=== PATIENT | female | born 1935 | race Caucasian/White ===

== ENCOUNTER 2020-07-31 10:30 | Outpatient (CLI) | payer OTHER, MEDICARE, SELFPAY | END 2020-07-31 10:31 | disposition home or self-care (01) | LOC: CHSCOVIDVC 10:30 | PROVIDERS: PCP Family Medicine | DX: Z23 Encounter for immunization (principal) | CPT/HCPCS: 0011A; 91301 ==

== ENCOUNTER 2020-08-28 10:29 | Outpatient (CLI) | payer OTHER, MEDICARE, SELFPAY | END 2020-08-28 10:30 | disposition home or self-care (01) | LOC: CHSCOVIDVC 10:29 | PROVIDERS: PCP Family Medicine | DX: Z23 Encounter for immunization (principal) | CPT/HCPCS: 0012A; 91301 ==

== ENCOUNTER 2021-01-20 14:28 | Outpatient (CLI) | payer OTHER, SELFPAY ==
--- NOTE | ~2021-01-20 | DEXA_ITS ---
Bone Density Report Name: Arlene Elliott Age: 85 Sex: Female Ethnicity: White Date of : 1935 Indication: osteopenia; height loss; hysterectomy; postmenopausal Referring Provider: Cecil Dias Study: Bone densitometry was performed. Exam Date: January 20, 2021 Accession number: [id number] Bone Density: Region BMD T-score Z-score Classification AP Spine (L3, L4) 0.861 -2.2 0.8 Osteopenia Femoral Neck (Left) 0.597 -2.3 0.2 Osteopenia Total Hip (Left) 0.742 -1.6 0.6 Osteopenia Total Hip Bilateral Avg 0.733 -1.7 0.6 Osteopenia Femoral Neck (Right) 0.619 -2.1 0.4 Osteopenia Total Hip (Right) 0.723 -1.8 0.5 Osteopenia World Health Organization criteria for BMD impression classify patients as: Normal (T-score at or above -1.0), Osteopenia (T-score between -1.0 and -2.5), or Osteoporosis (T-score at or below -2.5). 10-year Fracture Risk(1): Major Osteoporotic Fracture 17% Hip Fracture 5.7% Reported Risk Factors: [place] (), Neck BMD=0.597, BMI=27.5 (1) FRAX(R) Version 3.08. Fracture probability calculated for an untreated patient. Fracture probability may be lower if the patient has received treatment. Previous Exams: Region Exam Age BMD T-score BMD Change BMD Change Date g/cm2 vs Baseline vs Previous AP Spine(L3, L4) 01/20/2021 85 0.861 -2.2 0.050(6.2%)* 0.019(2.2%) 09/12/2018 83 0.843 -2.3 0.031(3.8%)* 0.031(3.8%)* 08/24/2016 81 0.811 -2.6 Total Hip(Left) 01/20/2021 85 0.742 -1.6 -0.003(-0.5%) -0.020(-2.6%) 09/12/2018 83 0.762 -1.5 0.016(2.2%) 0.016(2.2%) 08/24/2016 81 0.745 -1.6 Total Hip(Right) 01/20/2021 85 0.723 -1.8 -0.035(-4.6%)* 0.007(1.0%) 09/12/2018 83 0.715 -1.9 -0.042(-5.6%)* -0.042(-5.6%)* 08/24/2016 81 0.758 -1.5 *Denotes significance at 95% confidence level, LSC for AP Spine = 0.022 g/cm2, LSC for Total Hip = 0.027 g/cm2 Clinical Information Provided by Patient: Has the following medical conditions: Hysterectomy Patient maximum height was 66 Menopause Age: 43 Drinks caffeinated beverages Onset of menses at age 15 Number of children 2 Impression: The patient has low bone mass, based on the Left Femoral Neck T-score. The patient has an estimated ten-year risk of hip fracture of 5.7% and an estimated ten-year risk of major fracture of 17%, based on the WHO FRAX algorithm. No significant bone loss was observed. Discussion: BONE DENSITY IS
== END 2021-01-20 14:29 | disposition home or self-care (01) ==
LOC: ANHIMG 14:30
PROVIDERS: PCP Family Medicine; Visit Provider Physician Assistant
DX: R29.890 Loss of height (principal); Z90.710 Acquired absence of both cervix and uterus; M85.88 Other specified disorders of bone density and structure, other site; M85.852 Other specified disorders of bone density and structure, left thigh; M85.851 Other specified disorders of bone density and structure, right thigh
CPT/HCPCS: 77080

== ENCOUNTER 2023-04-06 12:51 | Outpatient (CLI) | payer OTHER, SELFPAY | END 2023-04-06 12:52 | disposition home or self-care (01) | LOC: ANHAUDIO 12:52 | PROVIDERS: PCP Family Medicine; Visit Provider Family Medicine | DX: H90.3 Sensorineural hearing loss, bilateral (principal) | CPT/HCPCS: 92557; 92567 ==

== ENCOUNTER 2023-08-09 09:30 | Outpatient (RCR) | payer OTHER, SELFPAY | END 2023-08-09 23:59 | disposition home or self-care (01) | LOC: ANHAUDIO 09:30 | PROVIDERS: PCP Family Medicine; Visit Provider Family Medicine | DX: Z46.1 Encounter for fitting and adjustment of hearing aid (principal) | CPT/HCPCS: 99199; V5160; V5261 ==

== ENCOUNTER 2024-10-07 14:41 | Inpatient (IN) | payer OTHER, SELFPAY ==
--- NOTE | ~2024-10-07 | CT_ITS ---
CLINICAL INDICATION: Abdominal pain, bloating, diarrhea, and difficulty urinating COMPARISON: None. TECHNIQUE: Multiple contiguous axial images of the abdomen and pelvis were performed following the ad ministration of with 100 mL Omnipaque-350 intravenous contrast The dose-length product (DLP) was 492.51 mGy-cm. Automated exposure control and iterative reconstruction technique were employed. FINDINGS/OBSERVATIONS: Visualized lower thorax: Bibasilar atelectasis. The remainder of the bilateral lung bases are clear. The heart is enlarged, with a small pericardial effusion. Small hiatal hernia is present. Liver: Subcentimeter foci of decreased attenuation are identified within the liver, too small to latonia acterize on the current examination. The remainder of the liver demonstrates otherwise homogeneous enhancement and is not enlarged. Gallbladder and biliary system: The gallbladder is only minimally distended, and otherwise unremarkable. Pancreas: The pancreas enhances homogeneously without ductal dilatation. Spleen: The spleen enhances homogeneously and is not enlarged. Kidneys: The bilateral kidneys enhance symmetrically without hydronephrosis or renal calculi. Adrenal glands: Unremarkable. Gastrointestinal tract: Inflammatory changes surrounding the cecum and terminal ileum. Colonic diverticulosis without surrounding inflammatory change. Appendix: The appendix demonstrates mural thickening and is distended measuring 11.2 mm in caliber with surroun ding inflammatory change, findings consistent with acute appendicitis. No gross perforation or drainable fluid collection (at this point). Vasculature: Calcified atherosclerotic disease. Lymph nodes: No pathologically enlarged or morphologically suspicious lymph nodes within the retroperitoneum or at the root of the mesentery. Pelvic structures: The bladder is distended, and otherwise unremarkable. The uterus is either surgically absent or markedly atrophic. Body wall and musculoskeletal: Small fat-containing umbilical hernia. Age-appropriate degenerative disease within the lower thoracic and lumbosacral spine. IMPRESSION: Acute appendicitis. These findings were discussed with María Elena Nur at 6:50 PM on 10/07/2024 Reviewed, dictated and finalized at location A. IMPRESSION: Acute appendicitis. These findings were discussed with María Elena Geadreault at 6:50 PM on 10/07/2024
--- NOTE | ~2024-10-07 | US_ITS ---
BILATERAL LOWER EXTREMITY VENOUS ULTRASOUND Ordering provider: Shanon Cabrera APRN History: . RLE edema . Comparison: None. FINDINGS: RIGHT LOWER EXTREMITY VEINS: --COMMON FEMORAL: Patent and free of thrombus. Normal compressibility, phasic flow and augmentation. --PROXIMAL SUPERFICIAL FEMORAL: Patent and free of thrombus. Normal compressibility, phasic flow and augmentation. --DISTAL SUPERFICIAL FEMORAL: Patent and free of thrombus. Normal compressibility, phasic flow and au gmentation. --POPLITEAL: Patent and free of thrombus. Normal compressibility, phasic flow and augmentation. --POSTERIOR TIBIAL: Patent and free of thrombus. Normal compressibility, phasic flow and augmentation . LEFT LOWER EXTREMITY VEINS: --COMMON FEMORAL: Patent and free of thrombus. Normal compressibility, phasic flow and augmentation. --PROXIMAL SUPERFICIAL FEMORAL: Patent and free of thrombus. Normal compressibility, phasic flow and augmentation. --DISTAL SUPERFICIAL FEMORAL: Patent and free of thrombus. Normal compressibility, phasic flow and au gmentation. --POPLITEAL: Patent and free of thrombus. Normal compressibility, phasic flow and augmentation. --POSTERIOR TIBIAL: Patent and free of thrombus. Normal compressibility, phasic flow and augmentation . IMPRESSION: Negative bilateral lower extremity venous US. No deep vein thrombosis. Reviewed, dictated and finalized at location A.
--- OUTSIDE RECORDS SUMMARY | 2024-10-07 14:45 | XMS_ITS | Clinical Summary ---
Author Organization [facility] Address [address] [address] Care Team Providers Care System Analyst Name Role Phone Tye Grajeda MD Primary Care Provider [phone] Source Comments [facility],non-owned Affiliates and Associated Physician Practices is amultiple site organization consisting of ambulatory clinics and hospital sitesin [place], [place], [place] and [place]. This disclosure is being madepursuant to the Care Everywhere program and may not contain all information available regarding this patient. Last updated 17.[facility] Allergies No known active allergies Medications * Be aware that medications may not be up to date on this document. Alwaysverify current medications with the patient. acetaminophen (Tylenol) 325 MG tablet Take 2 (two) tablets by mouth every 6 hours as needed Maximum allowable Acetaminophen amount = 4 Grams (4000 mg) / 24 hours. 5 Active amLODIPine (Norvasc) 5 MG tablet Take 1 (one) tablet by mouth once daily 5 Active busPIRone (Buspar) 5 MG tablet Take 1 (one) tablet by mouth 2 times daily as needed for anxiety 5 Active Active Problems Problem Noted Date Diagnosed Date Laceration of right hand 08/21/2024 Thyroid lesion 08/21/2024 Overview (08/21/2024): There is a 2.1 cm hypoattenuating nodule in the right thyroid lobe. Recommend nonemergent thyroid ultrasound. Lesion of pancreas 08/21/2024 Overview (08/21/2024): There is a 2.1 cm cystic lesion of the pancreatic body, likely side branch intraductal papillary mucinous neoplasm. Recommend one-year follow-up if clinically indicated. Leukocytosis, unspecified type 08/20/2024 Fall, initial encounter 08/20/2024 Right leg pain 08/20/2024 Laceration of right lower extremity, initial enc ounter 08/20/2024 Finger laceration, initial encounter 08/20/2024 Encounters Date Type Department Care Team Description 10/02/2024 11:45 AM CDT Office Visit [facility] - General Surgery [address] [place] [address], [facility] [place] [address] Laceration of right lower extremity, initial encounter (Primary Dx) 10/02/2024 Travel 09/23/2024 Travel 09/19/2024 Telephone [facility] - General Surgery [address] [place] [address], [place] [address] Meghna Avalos, architect/Incision Check 09/18/2024 11:45 AM CDT Office Visit [facility] - General Surgery [address] [place] [address], [place] [address] Open wound of right lower extremity, subsequent encounter (Primary Dx) 09/18/2024 Travel 09/11/2024 11:45 AM CDT Office Visit [facility] - General Surgery [address] [place] [address], [place] [address] Fall, initial encounter (Primary Dx); Laceration of right lower extremity, initial encounter; Right leg pain 09/11/2024 Telephone [facility] - General Surgery [address] [place] [address], [place] [address] Meghna Avalos, MIYA Coordination Of Care 09/11/2024 Travel 09/04/2024 12:00 PM CDT Clinical Support [facility] - General Surgery [address] [place] [address], [place] [address] Wound of right lower extremity, sequela 09/04/2024 Travel 08/28/2024 12:00 PM CDT Clinical Support [facility] - General Surgery [address] [facility], [facility] [place] [address] Laceration of right lower extremity, initial encounter 08/28/2024 Telephone [facility] - General Surgery [address] [facility], [place] [address] Meghna Avalos RN Coordination Of Care 08/28/2024 Travel 08/22/2024 Travel 08/20/2024 3:03 PM CDT - 08/21/2024 4:41 PM CDT Emergency [facility] [address] [place] [address] Washington Dobson MD Fite, Emily A, MD Naughton, Daniel J, MD Laceration of right lower extremity, initial encounter (Primary Dx); Fall, initial encounter; Finger laceration, initial encounter; Right leg pain; Leukocytosis, unspecified type; Lesion of pancreas (HCC); Thyroid lesion Discharge Disposition: Home or Self Care 08/20/2024 Travel from Last 3 Months Immunizations Immunization Administration Dates Next Due TDAP (7yrs+) 08/20/2024 Social History Tobacco Use Types Packs/Day Years Used Date Smoking Tobacco: Never Passive Smoke Exposure: Never Smokeless Tobacco: Never Tobacco Cessation:Counseling Given: No Alcohol Use Standard Drinks/Week Comments Never 0 (1 standard drink = 0.6 oz pur e alcohol) Comments Unknown Sex and Gender Information Value Date Recorded Sex Assigned at Not on file Legal Sex Female 3:02 PM CDT Gender Identity Not on file Sexual Orientation Not on file Last Filed Vital Signs Vital Sign Reading Time Taken Comments Blood Pressure 130/77 10/02/2024 11:35 AM CDT Pulse 60 10/02/2024 11:35 AM CDT Temperature 37 C (98.6 F) 10/02/2024 11:35 AM CDT Respiratory Rate 18 10/02/2024 11:35 AM CDT Oxygen Saturation 98% 10/02/2024 11:35 AM CDT Inhaled Oxygen Concentration - - Weight 68 kg (150 lb) 10/02/2024 11:35 AM CDT Height 172.7 cm (5' 8) 10/02/2024 11:35 AM CDT Body Mass Index 22.81 10/02/2024 11:35 AM CDT Plan of Treatment Upcoming Encounters Date Type Department Care Team (Late st Contact Info) Description 10/30/2024 11:45 AM CDT Office Visit [facility] - General Surgery [address] [facility], [place] [address] Health Maintenance Due Date Last Done Comments BONE DENSITY TESTING 1935 MEDICARE AWV 12 MONTHS 1935 PNEUMOCOCCAL VACCINE 50+ (1 of 1 - PCV) 1987 ZOSTER VACCINE (1 of 2) 1987 Respiratory Syncytial Virus (RSV) Vaccine Pt: or over 60 yrs (1 - 1-dose 75+ series) 02/04/2012 COVID-19 VACCINE ( - 2023-2 5 season) 2023 DEPRESSION SCREENING 04/02/2024 INFLUENZA VACCINE (#1) 2024 DTAP/TDAP/TD VACCINES (2 - T d or Tdap) 08/20/2034 08/20/2024 HEPATITIS B VACCINE Aged Out No longe r eligible based on patient's age to complete this topic HIB VACCINE Aged Out No longer eligi ble based on patient's age to complete this topic HPV VACCINE Aged Out No longer eligi ble based on patient's age to complete this topic MENINGOCOCCAL (Group B) VACC INE SHARED DECISION-MAKING Aged Out No longer eligibl e based on patient's age to complete this topic MENINGOCOCCAL GROUPS A/C/Y/W VACCINE Aged Out No longer eligible b ased on patient's age to complete this topic Procedures Procedure Name Priority Date/Time Associated Diagnosis Comments PHOSPHORUS BLOOD STAT 08/21/2024 7:33 AM CDT Laceration of right lower extremity, initial encounter MAGNESIUM BLOOD STAT 08/21/2024 7:33 AM CDT Laceration of right lower extremity, initial encounter CBC W/O DIFFERENTIAL STAT 08/21/2024 7:33 AM CDT Laceration of right lower extremity, initial encounter BASIC METABOLIC PANEL (CALCIUM TOTAL) STAT 08/21/2024 7:33 AM CDT Laceration of right lower extremity, initial encounter CT CHEST ABDOMEN PELVIS W CONT STAT 08/20/2024 8:57 PM CDT Fall, initial encounter Finger laceration, initial encounter Right leg pain Leukocytosis, unspecified type CT THORACIC SPINE WO CONTRAST STAT 08/20/2024 8:57 PM CDT Fall, initial encounter Finger laceration, initial encounter Right leg pain Leukocytosis, unspecified type CT LUMBAR SPINE WO CONTRAST STAT 08/20/2024 8:57 PM CDT Fall, initial encounter Finger laceration, initial encounter Right leg pain Leukocytosis, unspecified type ED LACERATION REPAIR Routine 08/20/2024 7:27 PM CDT BLOOD TYPE VERIFICATION STAT 08/20/2024 6:24 PM CDT URINALYSIS REFLEX MICROSCOPIC REFLEX CULTURE STAT 08/20/2024 5:38 PM CDT URINE DRUG SCREEN IMMUNOASSAY STAT 08/20/2024 5:38 PM CDT TYPE + SCREEN PANEL STAT 08/20/2024 5 :13 PM CDT PT-INR [facility] STAT 08/20/2024 5:13 PM CDT ALCOHOL ETHYL BLOOD STAT 08/20/2024 5 :13 PM CDT COMPREHENSIVE METABOLIC PANEL STAT 08/20/2024 5:13 PM CDT CBC W AUTO DIFFERENTIAL STAT 08/20/2024 5:[address] CERVICAL SPINE WO CONTRAST STAT 08/20/2024 4:56 PM CDT Fall, initial encounter Finger laceration, initial encounter Right leg pain CT HEAD WO CONTRAST STAT 08/20/2024 4 :56 PM CDT Fall, initial encounter Finger laceration, initial encounter Right leg pain XR HAND RIGHT 3VW OR MORE STAT 08/20/2024 4:21 PM CDT Fall, initial encounter XR ANKLE RIGHT 3VW OR MORE STAT 08/20/2024 4:21 PM CDT Fall, initial encounter XR TIBIA FIBULA RIGHT 2VW STAT 08/20/2024 4:20 PM CDT Fall, initial encounter XR KNEE RIGHT 3VW STAT 08/20/2024 4:2 0 PM CDT Fall, initial encounter from Last 3 Months Results * (ABNORMAL) CBC W/O DIFFERENTIAL (08/21/2024 7:33 AM CDT) [facility] WBC 10.7 4.0 - 10.7 x10E9/L 08/21/2024 7:53 AM [facility] RBC Count 3.98 3.90 - 5.20 x10E12/L 08/21/2024 7:53 AM [facility] Hemoglobin 13.2 11.9 - 15.8 g/dL 08/21/2024 7:53 AM [facility] Hematocrit 38.9 34.8 - 46.1 % 08/21/2024 7:53 AM [facility] MCV 97.7 80.0 - 98.0 fL 08/21/2024 7:53 AM [facility] MCH 33.2 26.7 - 33.6 pg 08/21/2024 7:53 AM [facility] MCHC 33.9 31.7 - 36.3 g/dL 08/21/2024 7:53 AM [facility] RDW-CV 14.5 11.3 - 14.8 % 08/21/2024 7:53 AM [facility] Platelet Count 147(L) 150 - 420 x10E9/L 08/21/2024 7:53 AM [facility] MPV 10.9 7.8 - 11.4 fL 08/21/2024 7:53 AM [facility] Blood BLOOD SPECIMEN / Unknown Venipuncture / Unknown 08/21/2024 7:33 AM CDT 08/21/2024 7:44 AM T us Jennifer Bautista MD LAB - HEMATOLOGY ORDERABLES Dominga madeline Result [facility] [address] [place] [address], [facility] [phone] * (ABNORMAL) BASIC METABOLIC PANEL (CALCIUM TOTAL) (08/21/2024 7:33 AM CDT) BUN 18 7 - 26 mg/dL 08/21/2024 10:49 AM [facility] Creatinine 0.62 0.56 - 0.96 mg/dL 08/21/2024 10:49 AM [facility] Sodium 140 136 - 145 mmol/L 08/21/2024 10:49 AM [facility] Potassium 3.8 3.5 - 4.5 mmol/L 08/21/2024 10:49 AM [facility] Chloride 111(H) 98 - 107 mmol/L 08/21/2024 10:49 AM [facility] CO2 23 22 - 29 mmol/L 08/21/2024 10:49 AM [facility] Glucose 120(H) 70 - 99 mg/dL 08/21/2024 10:49 AM [facility] Calcium 8.5 8.4 - 10.2 mg/dL 08/21/2024 10:49 AM [facility] Anion Gap 6 6 - 16 08/21/2024 10:49 AM [facility] BUN/Creatinine Ratio 29(H) 7 - 23 08/21/2024 10:49 AM [facility] Osmolality Calculated 293 275 - 295 mOsm/kg 08/21/2024 10:49 AM [facility] eGFR by CKD-EPI 86(L) >=90 mL/min/1.7 3 m2 08/21/2024 10:49 AM [facility] Blood BLOOD SPECIMEN / Unknown Venipuncture / Unknown 08/21/2024 7:33 AM CDT 08/21/2024 7:44 AM CDT Jennifer Bautista MD LAB - CHEMISTRY ORDERABLES Final Result Performing Organization Address [facility]/ZIP Co de Phone Number [address] [address], [facility] [phone] * PHOSPHORUS BLOOD (08/21/2024 7:33 AM CDT) Phosphorus 2.9 2.9 - 5.1 mg/dL 08/21/2024 10:49 AM CDT [facility] Blood BLOOD SPECIMEN / Unknown Venipuncture / Unknown 08/21/2024 7:33 AM CDT 08/21/2024 7:44 AM CDT Jennifer Bautista MD LAB - CHEMISTRY ORDERABLES Final Result Performing Organization Address [facility] Co de Phone Number [address] [address], [facility] [phone] * MAGNESIUM BLOOD (08/21/2024 7:33 AM CDT) Magnesium 2.1 1.6 - 2.6 mg/dL 08/21/2024 10:49 AM CDT [facility] Blood BLOOD SPECIMEN / Unknown Venipuncture / Unknown 08/21/2024 7:33 AM CDT 08/21/2024 7:44 AM CDT Jennifer Bautista MD LAB - CHEMISTRY ORDERABLES Final Result Performing Organization Address [facility] Co de Phone Number [address] [address], [facility] [phone] * CT Chest Abdomen Pelvis W Cont (08/20/2024 8:57 PM CDT) Anatomical Region Laterality Modality Chest, Abdomen, Pelvis Computed Tomography 08/20/2024 9:48 PM CDT Impressions 08/21/2024 2:31 AM CDT Impression: 1.No acute visceral, vascular, or osseus injury identified in the chest, abdomen, or pelvis. 2.There is a 2.1 cm hypoattenuating nodule in the right thyroid lobe. Recommend nonemergent thyroid ultrasound. 3.There is a 2.1 cm cystic lesion of the pancreatic body, likely side branch intraductal papillary mucinous neoplasm. Recommend one-year follow-up if clinically indicated. > Dictated by Kostas Owusu MD, (radiology nurse). I, Sudarshan Ramesh MD have personally reviewed and interpreted this examination/study. > Interpreting Provider: Sudarshan Ramesh MD on 08/21/2024 2:31 AM Narrative 08/21/2024 2:31 AM CDT PROCEDURE: CT CHEST ABDOMEN PELVIS W CONT, DATE/TIME OF EXAM: 08/20/2024 8:58 PM, LOCATION [facility] INDICATION: W19.XXXA: Fall, initial encounter S61.219A: Finger laceration, initial encounter M79.604: Right leg pain D72.829: Leukocytosis, unspecified type ADDITIONAL CLINICAL INFORMATION: Ordering Provider Reason For Exam: fx? Acute intrathoracic or intra-abdominal injury? COMPARISON: None. TECHNIQUE: CT of the chest, abdomen, and pelvis was performed after the uneventful administration of 100 mL of Isovue 370 intravenous contrast according to standard protocol. Findings: Chest: Lower Neck and Axillae: There is a 2.1 cm hypoattenuating nodule in the right thyroid gland Lungs: Mild bilateral dependent atelectasis is present. No suspicious pulmonary nodules are identified. No pleural fluid or pneumothorax is present. Heart and Pericardium: The cardiac chambers are normal in size. No pericardial fluid or thickening is present. Mediastinum and Samia: No mediastinal hemorrhage is present. No enlarged lymph nodes are present. Thoracic Vasculature: No vascular abnormality is present. Abdomen/pelvis: Liver: Multiple cysts are noted. Some cysts are calcified, could represent granulomas within the liver. Gallbladder and Bile Ducts: Normal. Spleen: Normal. Pancreas: Pancreas is atrophic. There is a 2.1 cm cystic lesion of the pancreatic body (Series 4, Image 39), likely a side branch intraductal papillary mucinous neoplasm . Adrenals: Indeterminate 1 cm nodule left adrenal gland. Right adrenal gland is normal. Kidneys: Multiple subcentimeter hypoattenuating lesions in both kidneys are too small to characterize, but likely represent cysts. Gastrointestinal: The stomach and visualized loops of small bowel are unremarkable. Colonic diverticulosis without evidence of diverticulitis is seen. Normal appendix. Mesentery/Peritoneum/Retroperitoneum: No free intraperitoneal air. No free fluid in the abdomen or pelvis. Bladder: Normal. Reproductive Organs: The uterus is absent. Abdominal Vasculature: No vascular abnormality is present. Bones: Bone windows demonstrate no suspicious lytic or blastic lesions. The visible osseous structures are intact. Degenerative changes are seen in the spine. There is grade 1 retrolisthesis of L1 on L2 and grade 2 anterolisthesis of L5 on S1. Soft tissues: Normal. Procedure Note Sudarshan Ramesh MD - 08/21/2024 PROCEDURE: CT CHEST ABDOMEN PELVIS W CONT, DATE/TIME OF EXAM:08/20/2024 8:58 PM, LOCATION [facility] INDICATION: W19.XXXA: Fall, initial encounter S61.219A: Finger laceration, initial encounter M79.604: Right leg pain D72.829: Leukocytosis, unspecified type ADDITIONAL CLINICAL INFORMATION: Ordering Provider Reason For Exam: fx? Acute intrathoracic or intra-abdominal injury? COMPARISON: None. TECHNIQUE: CT of the chest, abdomen, and pelvis was performed after the uneventful administration of 100 mL of Isovue 370 intravenous contrast according to standard protocol. Findings: Chest: Lower Neck and Axillae: There is a 2.1 cm hypoattenuating nodule in the right thyroid gland Lungs: Mild bilateral dependent atelectasis is present. No suspicious pulmonary nodules are identified. No pleural fluid or pneumothorax is present. Heart and Pericardium: The cardiac chambers are normal in size. No pericardial fluid orthickening is present. Mediastinum and Samia: No mediastinal hemorrhage is present. No enlarged lymph nodes arepresent. Thoracic Vasculature: No vascular abnormality is present. Abdomen/pelvis: Liver: Multiple cysts are noted. Some cysts are calcified, could represent granulomas within the liver. Gallbladder and Bile Ducts: Normal. Spleen: Normal. Pancreas: Pancreas is atrophic. There is a 2.1 cm cystic lesion of the pancreatic body (Series 4, Image 39), likely a side branch intraductal papillary mucinous neoplasm . Adrenals: Indeterminate 1 cm nodule left adrenal gland. Right adrenal gland is normal. Kidneys: Multiple subcentimeter hypoattenuating lesions in both kidneys are too small to characterize, but likely represent cysts. Gastrointestinal: The stomach and visualized loops of small bowel are unremarkable.Colonic diverticulosis without evidence of diverticulitis is seen. Normalappendix. Mesentery/Peritoneum/Retroperitoneum: No free intraperitoneal air. No free fluid in the abdomen or pelvis. Bladder: Normal. Reproductive Organs: The uterus is absent. Abdominal Vasculature: No vascular abnormality is present. Bones: Bone windows demonstrate no suspicious lytic or blastic lesions. The visible osseous structures are intact. Degenerative changes are seen inthe spine. There is grade 1 retrolisthesis of L1 on L2 and grade 2 anterolisthesis of L5 on S1. Soft tissues: Normal. Impression: 1.No acute visceral, vascular, or osseus injury identified in the chest, abdomen, or pelvis. 2.There is a 2.1 cm hypoattenuating nodule in the right thyroid lobe. Recommend nonemergent thyroid ultrasound. 3.There is a 2.1 cm cystic lesion of the pancreatic body, likely side branch intraductal papillary mucinous neoplasm. Recommend one-year follow-up if clinically indicated. > Dictated by Kostas Owusu MD, (radiology nurse). Sudarshan Stone MD have personally reviewed and interpreted this examination/study. > Interpreting Provider: Sudarshan Ramesh MD on 08/21/2024 2:31 AM Washington Dobson MD CT ORDERABLES Final Result * CT Lumbar Spine Wo Contrast (08/20/2024 8:57 PM CDT) Anatomical Region Laterality Modality Spine Computed Tomogra phy 08/20/2024 9:22 PM CDT Impressions 08/20/2024 11:51 PM CDT IMPRESSION: 1.No evidence of acute fracture in the thoracic or lumbar spine. 2.A 2.4 cm right thyroid gland nodule. Nonemergent thyroid ultrasound recommended. Report dictated by Jose Angel Palacio MD, (Lunchroom Aide). Rose Stone MD have personally reviewed and interpreted this examination/study. > Interpreting Provider: Rose Farnsworth MD on 08/20/2024 11:51 PM Narrative 08/20/2024 11:51 PM CDT PROCEDURE: CT THORACIC SPINE WO CONTRAST, CT LUMBAR SPINE WO CONTRAST, DATE/TIME OF EXAM: 08/20/2024 8:58 PM, LOCATION [facility] INDICATION: W19.XXXA: Fall, initial encounter S61.219A: Finger laceration, initial encounter M79.604: Right leg pain D72.829: Leukocytosis, unspecified type ADDITIONAL CLINICAL INFORMATION: Ordering Provider Reason For Exam: fx? TECHNIQUE: Reformatted axial, sagittal, and coronal images of the thoracic and lumbar spine were obtained by the technologist from a concurrently performed body CT and sent to the workstation for review. CT dose reduction technique was used, including Automated Exposure Control. COMPARISON: No prior study is available for comparison at the time of this dictation. FINDINGS: Thoracic spine: Increased thoracic kyphosis and multilevel mild anterior wedging of the vertebral bodies with less than 20% height loss. Slight dextroscoliosis of the thoracic spine. Otherwise, no acute fracture seen. The bones are diffusely osteopenic. There is advanced degenerative disc disease with Schmorl's nodes. No high-grade central canal stenosis is seen. 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 There are varying degrees of neural foraminal stenosis at multiple levels. There is subsegmental atelectasis in the dependent portions of the lung bases. A 2.4 cm right thyroid gland nodule. Nonemergent thyroid ultrasound recommended. Lumbar spine: Grade 1 retrolisthesis of L1 on L2. 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 The bones are diffusely demineralized. Vertebral bodies are normal in height without evidence of acute fracture. There is advanced degenerative disc disease with Schmorl's nodes. No high-grade central canal stenosis is seen. 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 There are varying degrees of neural foraminal stenosis at multiple levels. Colonic diverticulosis is partially imaged. Atherosclerotic calcification of the aorta and branch vessels. Bilateral kidney cysts. Multiple subcentimeter hypodense findings within the liver, too small to characterize likely cysts. Mild prominence of the left adrenal gland. Procedure Note Rose Farnsworth MD - 08/20/2024 PROCEDURE: CT THORACIC SPINE WO CONTRAST, CT LUMBAR SPINE WO CONTRAST, DATE/TIME OF EXAM: 08/20/2024 8:58 PM, LOCATION [facility] INDICATION: W19.XXXA: Fall, initial encounter S61.219A: Finger laceration, initial encounter M79.604: Right leg pain D72.829: Leukocytosis, unspecified type ADDITIONAL CLINICAL INFORMATION: Ordering Provider Reason For Exam: fx? TECHNIQUE: Reformatted axial, sagittal, and coronal images of thethoracic and lumbar spine were obtained by the technologist from a concurrently performed body CT and sent to the workstation for review. CT dosereduction technique was used, including Automated Exposure Control. COMPARISON: No prior study is available for comparison at the time ofthis dictation. FINDINGS: Thoracic spine: Increased thoracic kyphosis and multilevel mild anterior wedging of the vertebral bodies with less than 20% height loss. Slight dextroscoliosisof the thoracic spine. Otherwise, no acute fracture seen. The bones are diffusely osteopenic. There is advanced degenerative disc disease with Schmorl's nodes. No high-grade central canal stenosis is seen. 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 There are varying degreesof neural foraminal stenosis at multiple levels. There is subsegmental atelectasis in the dependent portions of the lung bases. A 2.4 cm right thyroid gland nodule. Nonemergent thyroid ultrasound recommended. Lumbar spine: Grade 1 retrolisthesis of L1 on L2. 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 The bones are diffusely demineralized. Vertebral bodies are normal in height without evidence of acute fracture. There is advanced degenerative disc disease with Schmorl's nodes. No high-grade centralcanal stenosis is seen. 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 There are varying degrees of neural foraminal stenosis atmultiple levels. Colonic diverticulosis is partially imaged. Atherosclerotic calcification of the aorta and branch vessels. Bilateral kidney cysts. Multiple subcentimeter hypodense findings within the liver, too small to characterize likely cysts. Mild prominence of the left adrenal gland. IMPRESSION: 1.No evidence of acute fracture in the thoracic or lumbar spine. 2.A 2.4 cm right thyroid gland nodule. Nonemergent thyroid ultrasound recommended. Report dictated by Jose Angel Palacio MD, (Lunchroom Aide). Rose Stone MD have personally reviewed and interpretedthis examination/study. > Interpreting Provider: Rose Farnsworth MD on 08/20/2024 11:51 PM Washington Dobson MD CT ORDERABLES Final Result * CT Thoracic Spine Wo Contrast (08/20/2024 8:57 PM CDT) Anatomical Region Laterality Modality Spine Computed Tomogra phy 08/20/2024 9:22 PM CDT Impressions 08/20/2024 11:51 PM CDT IMPRESSION: 1.No evidence of acute fracture in the thoracic or lumbar spine. 2.A 2.4 cm right thyroid gland nodule. Nonemergent thyroid ultrasound recommended. Report dictated by Jose Angel Palacio MD, (Lunchroom Aide). Rose Stone MD have personally reviewed and interpreted this examination/study. > Interpreting Provider: Rose Farnsworth MD on 08/20/2024 11:51 PM Narrative 08/20/2024 11:51 PM CDT PROCEDURE: CT THORACIC SPINE WO CONTRAST, CT LUMBAR SPINE WO CONTRAST, DATE/TIME OF EXAM: 08/20/2024 8:58 PM, LOCATION [facility] INDICATION: W19.XXXA: Fall, initial encounter S61.219A: Finger laceration, initial encounter M79.604: Right leg pain D72.829: Leukocytosis, unspecified type ADDITIONAL CLINICAL INFORMATION: Ordering Provider Reason For Exam: fx? TECHNIQUE: Reformatted axial, sagittal, and coronal images of the thoracic and lumbar spine were obtained by the technologist from a concurrently performed body CT and sent to the workstation for review. CT dose reduction technique was used, including Automated Exposure Control. COMPARISON: No prior study is available for comparison at the time of this dictation. FINDINGS: Thoracic spine: Increased thoracic kyphosis and multilevel mild anterior wedging of the vertebral bodies with less than 20% height loss. Slight dextroscoliosis of the thoracic spine. Otherwise, no acute fracture seen. The bones are diffusely osteopenic. There is advanced degenerative disc disease with Schmorl's nodes. No high-grade central canal stenosis is seen. 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 There are varying degrees of neural foraminal stenosis at multiple levels. There is subsegmental atelectasis in the dependent portions of the lung bases. A 2.4 cm right thyroid gland nodule. Nonemergent thyroid ultrasound recommended. Lumbar spine: Grade 1 retrolisthesis of L1 on L2. 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 The bones are diffusely demineralized. Vertebral bodies are normal in height without evidence of acute fracture. There is advanced degenerative disc disease with Schmorl's nodes. No high-grade central canal stenosis is seen. 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 There are varying degrees of neural foraminal stenosis at multiple levels. Colonic diverticulosis is partially imaged. Atherosclerotic calcification of the aorta and branch vessels. Bilateral kidney cysts. Multiple subcentimeter hypodense findings within the liver, too small to characterize likely cysts. Mild prominence of the left adrenal gland. Procedure Note Rose Farnsworth MD - 08/20/2024 PROCEDURE: CT THORACIC SPINE WO CONTRAST, CT LUMBAR SPINE WO CONTRAST, DATE/TIME OF EXAM: 08/20/2024 8:58 PM, LOCATION [facility] INDICATION: W19.XXXA: Fall, initial encounter S61.219A: Finger laceration, initial encounter M79.604: Right leg pain D72.829: Leukocytosis, unspecified type ADDITIONAL CLINICAL INFORMATION: Ordering Provider Reason For Exam: fx? TECHNIQUE: Reformatted axial, sagittal, and coronal images of thethoracic and lumbar spine were obtained by the technologist from a concurrently performed body CT and sent to the workstation for review. CT dosereduction technique was used, including Automated Exposure Control. COMPARISON: No prior study is available for comparison at the time ofthis dictation. FINDINGS: Thoracic spine: Increased thoracic kyphosis and multilevel mild anterior wedging of the vertebral bodies with less than 20% height loss. Slight dextroscoliosisof the thoracic spine. Otherwise, no acute fracture seen. The bones are diffusely osteopenic. There is advanced degenerative disc disease with Schmorl's nodes. No high-grade central canal stenosis is seen. 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 There are varying degreesof neural foraminal stenosis at multiple levels. There is subsegmental atelectasis in the dependent portions of the lung bases. A 2.4 cm right thyroid gland nodule. Nonemergent thyroid ultrasound recommended. Lumbar spine: Grade 1 retrolisthesis of L1 on L2. 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 The bones are diffusely demineralized. Vertebral bodies are normal in height without evidence of acute fracture. There is advanced degenerative disc disease with Schmorl's nodes. No high-grade centralcanal stenosis is seen. 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 There are varying degrees of neural foraminal stenosis atmultiple levels. Colonic diverticulosis is partially imaged. Atherosclerotic calcification of the aorta and branch vessels. Bilateral kidney cysts. Multiple subcentimeter hypodense findings within the liver, too small to characterize likely cysts. Mild prominence of the left adrenal gland. IMPRESSION: 1.No evidence of acute fracture in the thoracic or lumbar spine. 2.A 2.4 cm right thyroid gland nodule. Nonemergent thyroid ultrasound recommended. Report dictated by Jose Angel Palacio MD, (Lunchroom Aide). I, Rose Farnsworth MD have personally reviewed and interpretedthis examination/study. > Interpreting Provider: Rose Farnsworth MD on 08/20/2024 11:51 PM us Washington Dobson MD CT ORDERABLES Final Result * Laceration Repair (08/20/2024 7:27 PM CDT) Narrative Washington Dobson MD - 08/20/2024 7:27 PM CDT Washington Dobson MD 08/20/2024 8:51 PM Laceration Repair Date/Time: 08/20/2024 7:27 PM Performed by: Amy Vasquez MD Authorized by: Washington Dobson MD Consent: Consent obtained: Verbal Consent given by: Patient Risks, benefits, and alternatives were discussed: yes Risks discussed: Infection, need for additional repair, nerve damage, poor wound healing, pain, poor cosmetic result, retained foreign body, tendon damage and vascular damage Alternatives discussed: No treatment and delayed treatment [place] protocol: Procedure explained and questions answered to patient or proxy's satisfaction: yes Relevant documents present and verified: yes Test results available: yes Imaging studies available: yes Required blood products, implants, devices, and special equipment available: yes Site/side marked: yes Immediately prior to procedure, a time out was called: yes Patient identity confirmed: Verbally with patient Anesthesia: Anesthesia method: Local infiltration Local anesthetic: Lidocaine 1% w/o epi Laceration details: Location: Finger Finger location: R long finger Length (cm): 1.5 Depth (mm): 3 Pre-procedure details: Preparation: Patient was prepped and draped in usual sterile fashion Treatment: Area cleansed with: Saline Amount of cleaning: Standard Irrigation solution: Sterile saline Irrigation volume: 250 Irrigation method: Pressure wash Skin repair: Repair method: Sutures Suture size: 5-0 Wound skin closure material used: Monocryl. Suture technique: Simple interrupted Number of sutures: 3 Approximation: Approximation: Close Repair type: Repair type: Simple Post-procedure details: Dressing: Antibiotic ointment Procedure completion: Tolerated well, no immediate complications Comments: Done with the assistance of medical student year 4 Amari Steven. Washington Dobson MD PROCEDURE/MINOR SURGIC AL ORDERABLES Final Result * BLOOD TYPE VERIFICATION (08/20/2024 6:24 PM CDT) ABO Rh O POS 08/20/2024 7:1 0 PM CDT [facility] Blood Bank BLOOD SPECIMEN / Unknown Venipuncture / Unknown 08/20/2024 6:24 PM CDT 08/20/2024 6:30 PM CDT Washington Dobson MD LAB - BLOOD BANK ORDER STEPHANIE Final Result [facility] [address] [place] [address], [facility] [phone] * (ABNORMAL) URINALYSIS REFLEX MICROSCOPIC REFLEX CULTURE (08/20/2024 5:38 PM CDT) Color UA Colorless(A) Yellow, Straw 08/20/2024 5:57 PM CDT [facility] Clarity UA Clear Clear 08/20/2024 5:57 PM CDT [facility] Glucose UA 2+(A) Normal 08/20/2024 5:57 PM CDT [facility] Bilirubin UA Negative Negative 08/20/2024 5:57 PM CDT [facility] Ketone UA Negative Negative 08/20/2024 5:57 PM CDT [facility] Specific [place] UA 1.008 1.005 - 1.030 08/20/2024 5:57 PM CDT [facility] Blood UA Negative Negative 08/20/2024 5:57 PM CDT [facility] pH UA 6.5 5.0 - 8.0 pH 08/20/2024 5:57 PM CDT [facility] Protein UA Negative Negative 08/20/2024 5:57 PM CDT [facility] Urobilinogen UA Normal Normal mg/dL 08/20/2024 5:57 PM CDT [facility] Nitrite UA Negative Negative 08/20/2024 5:57 PM T [facility] Leukocyte Esterase UA Negative Negative 08/20/2024 5:57 PM T [facility] Reflex Status Culture not indicated 08/20/2024 5:57 PM [facility] Urine URINE SPECIMEN OBTAINED BY CLEAN CATCH PROCEDURE / Unknown Collection / Unknown 08/20/2024 5:38 PM CDT 08/20/2024 5:47 PM CDT Washington Dobson MD LAB - URINALYSIS ORDER STEPHANIE Final Result Performing Organization Address [facility] Co de Phone Number [address] [id number] [phone] * URINE DRUG SCREEN IMMUNOASSAY (08/20/2024 5:38 PM CDT) Pathologist [facility] Amphetamines Screen Urine Negative Negative: < 1000 ng/mL 08/20/2024 6:17 PM CDT [facility] Barbiturates Screen Urine Negative Negative: < 200 ng/mL 08/20/2024 6:17 PM [facility] Benzodiazepine Screen Urine Negative Negative: < 200 ng/mL 08/20/2024 6:17 PM T [facility] Opiates Urine Negative Negative: < 300 ng/mL 08/20/2024 6:17 PM CDT [facility] Cocaine Metabolites Urine Negative Negative: < 300 ng/mL 08/20/2024 6:17 PM CDT [facility] Phencyclidine Screen Urine Negative Negative: < 25 ng/ml 08/20/2024 6:17 PM CDT [facility] Cannabinoids Screen Urine Negative Negative: <50 ng/mL 08/20/2024 6:17 PM CDT [facility] Methadone Screen Urine Negative Negative: < 300 ng/mL 08/20/2024 6:17 PM CDT [facility] Fentanyl Screen Urine Negative Negative: <1.5 ng/mL 08/20/2024 6:17 PM T [facility] Urine URINE / Unknown Collection / Unknown 08/20/2024 5:38 PM CDT 08/20/2024 5:47 PM CDT [facility] - 08/20/2024 6:17 PM CDT The Urine Toxicology Screening Panel does not screen for Propoxyphene, Meprobamate, Carisoprodol, Trazodone, obtk-xtr-ltbvhtl medications and/or volatiles (Acetone, Isopropanol, Methanol or Ethylene Glycol). Ethanol, Salicylate, Acetaminophen, Tricyclic Antidepressants and several therapeutic drugs may be individually assayed in serum or plasma specimen. Toxicology testing by the [facility] is an aid to medical diagnosis and treatment of patients. No documented chain of custody was maintained. Results are intended to be used for clinical purposes only. Washington Dobson MD LAB - URINE CHEMISTRY ORDERABLES Final Result [facility] [address] [place] [address], [facility] [phone] * PT-INR [facility] (08/20/2024 5:13 PM CDT) PT 13.6 12.1 - 14.8 Seconds 08/20/2024 5:50 PM CDT [facility] INR 1.1 See Comment 08/20/2024 5:50 PM CDT [facility] Comment:The suggested therap eutic range for standard coumadin (warfarin) therapy is an INR of 2.0-3.0. For high-risk patients (Mechanical Mitral Valve Prosthesis, etc.), the suggested prophylactic therapeutic range is an INR of 2.5-3.5. Blood BLOOD SPECIMEN / Unknown Venipuncture / Unknown 08/20/2024 5:13 PM CDT 08/20/2024 5:20 PM CDT Washington Dobson MD LAB - COAGULATION ORDE RABLES Final Result [facility] [address] [place] [address], [place] [phone] * TYPE + SCREEN PANEL (08/20/2024 5:13 PM CDT) [facility] Antibody Screen NEG 6:06 PM CDT [facility] ABO Rh O POS 08/20/2024 6:06 PM CDT [facility] Blood Bank BLOOD SPECIMEN / Unknown Venipuncture / Unknown 08/20/2024 5:13 PM CDT 08/20/2024 5:23 PM CDT Washington Dobson MD LAB - BLOOD BANK ORDER STEPHANIE Final Result Performing Organization Address City/[facility]/ZIP Co de Phone Number [facility] [address] [place] [address], [facility] [phone] * (ABNORMAL) CBC W AUTO DIFFERENTIAL (08/20/2024 5:13 PM CDT) Pathologist [facility] WBC 11.5(H) 4.0 - 10.7 x10E9/L 08/20/2024 5:33 PM CDT [facility] RBC Count 4.02 3.90 - 5.20 x10E12/L 08/20/2024 5:33 PM CDT [facility] Hemoglobin 13.1 11.9 - 15.8 g/dL 08/20/2024 5:33 PM CDT [facility] Hematocrit 39.7 34.8 - 46.1 % 08/20/2024 5:33 PM [facility] MCV 98.8(H) 80.0 - 98.0 fL 08/20/2024 5:33 PM [facility] MCH 32.6 26.7 - 33.6 pg 08/20/2024 5:33 PM [facility] MCHC 33.0 31.7 - 36.3 g/dL 08/20/2024 5:33 PM [facility] RDW-CV 14.0 11.3 - 14.8 % 08/20/2024 5:33 PM [facility] Platelet Count 145(L) 150 - 420 x10E9/L 08/20/2024 5:33 PM [facility] MPV 11.2 7.8 - 11.4 fL 08/20/2024 5:33 PM [facility] Neutrophil % 84.2(H) 41.0 - 74.0 % 08/20/2024 5:33 PM [facility] Lymphocyte % 8.2(L) 17.0 - 47.0 % 08/20/2024 5:33 PM [facility] Monocyte % 6.6 3.0 - 11.0 % 08/20/2024 5:33 PM [facility] Eosinophil % 0.2 0.0 - 7.0 % 08/20/2024 5:33 PM [facility] Basophil % 0.4 0.0 - 1.6 % 08/20/2024 5:33 PM [facility] Immature Granulocytes % 0.4 0.0 - 1.0 % 08/20/2024 5:33 PM [facility] Neutrophil Absolute 9.71(H) 1.60 - 7.50 x10E9/L 08/20/2024 5:33 PM [facility] Lymphocyte Absolute 0.94(L) 1.00 - 4.40 x10E9/L 08/20/2024 5:33 PM [facility] Monocyte Absolute 0.76 0.15 - 1.00 x10E9/L 08/20/2024 5:33 PM [facility] Eosinophil Absolute 0.02 0.00 - 0.60 x10E9/L 08/20/2024 5:33 PM [facility] Basophil Absolute 0.05 0.00 - 0.13 x10E9/L 08/20/2024 5:33 PM [facility] Blood BLOOD SPECIMEN / Unknown Venipuncture / Unknown 08/20/2024 5:13 PM CDT 08/20/2024 5:20 PM CDT Washington Dobson MD LAB - HEMATOLOGY ORDER STEPHANIE Final Result [facility] [address] [place] [address], [facility] [phone] * (ABNORMAL) COMPREHENSIVE METABOLIC PANEL (08/20/2024 5:13 PM CDT) BUN 24 7 - 26 mg/dL 08/20/2024 5:54 PM [facility] Creatinine 0.72 0.56 - 0.96 mg/dL 08/20/2024 5:54 PM [facility] Sodium 140 136 - 145 mmol/L 08/20/2024 5:54 PM [facility] Potassium 3.7 3.5 - 4.5 mmol/L 08/20/2024 5:54 PM [facility] Chloride 111(H) 98 - 107 mmol/L 08/20/2024 5:54 PM [facility] CO2 25 22 - 29 mmol/L 08/20/2024 5:54 PM [facility] Glucose 186(H) 70 - 99 mg/dL 08/20/2024 5:54 PM [facility] Calcium 8.7 8.4 - 10.2 mg/dL 08/20/2024 5:54 PM [facility] Protein Total 6.4 6.0 - 8.3 g/dL 08/20/2024 5:54 PM [facility] Albumin 3.6 3.4 - 5.0 g/dL 08/20/2024 5:54 PM [facility] Bilirubin Total 0.2 0.2 - 1.2 mg/dL 08/20/2024 5:54 PM [facility] Alkaline Phosphatase 135 40 - 150 U/L 08/20/2024 5:54 PM CDT [facility] ALT 17 5 - 55 U/L 08/20/2024 5:54 PM T [facility] AST 19 5 - 34 U/L 08/20/2024 5:54 PM [facility] Anion Gap 4(L) 6 - 16 08/20/2024 5:54 PM T [facility] BUN/Creatinine Ratio 33(H) 7 - 23 08/20/2024 5:54 PM [facility] Osmolality Calculated 299(H) 275 - 295 mOsm/kg 08/20/2024 5:54 PM [facility] Albumin/Globulin Ratio 1.3 1.1 - 2.3 08/20/2024 5:54 PM [facility] eGFR by CKD-EPI 81(L) >=90 mL/min/1.7 3 m2 08/20/2024 5:54 PM T [facility] Blood BLOOD SPECIMEN / Unknown Venipuncture / Unknown 08/20/2024 5:13 PM CDT 08/20/2024 5:20 PM CDT us Washington Dobson MD LAB - CHEMISTRY ORDERA BLES Final Result [address] [address], [facility] [phone] * ALCOHOL ETHYL BLOOD (08/20/2024 5:13 PM CDT) Ethanol (mg/dL) <10 <10 mg/dL 5:54 PM T [facility] Ethanol Calculated (g/dL) <0.010 <=0.010 g/dL 08/20/2024 5:54 PM T [facility] Blood BLOOD SPECIMEN / Unknown Venipuncture / Unknown 08/20/2024 5:13 PM CDT 08/20/2024 5:20 PM CDT Narrative [facility] - 08/20/2024 5:54 PM CDT Ethanol Interp <10: None Detected. Depression of [place]IST[place]: >100 mg/dl Potentially Critical: >250 mg/dl Potentially Fatal >400 mg/dl Ethanol in the patient's blood will contribute to the osmolar gap. Ethanol's contribution to the osmolar gap can be estimated by dividing the concentration of ethanol in mg/dL by 4.6. This test is for clinical use only and does not equal a JESSE for legal purposes. Washington Dobson MD LAB - CHEMISTRY ORDERA BLES Final Result [facility] [place] [address], [facility] [phone] * CT CERVICAL SPINE WO CONTRAST (08/20/2024 4:56 PM CDT) Anatomical Region Laterality Modality Spine Computed Tomogra phy 08/20/2024 4:58 PM CDT Impressions 08/20/2024 7:33 PM CDT IMPRESSION: 1.No acute intracranial hemorrhage, midline shift, or significant mass effect. 2.No evidence of acute fracture in the cervical spine. Report dictated by Hailee Montana MD (radiology nurse). I, Rose Farnsworth MD have personally reviewed and interpreted this examination/study. > Interpreting Provider: Rose Farnsworth MD on 08/20/2024 7:33 PM Narrative 08/20/2024 7:33 PM CDT PROCEDURE: CT HEAD WO CONTRAST, CT CERVICAL SPINE WO CONTRAST, DATE/TIME OF EXAM: 08/20/2024 4:56 PM, LOCATION [facility] INDICATION: W19.XXXA: Fall, initial encounter S61.219A: Finger laceration, initial encounter M79.604: Right leg pain EXAMINATION: 1.Computed tomography (CT) of the head without contrast 2.CT of the cervical spine without contrast ADDITIONAL CLINICAL INFORMATION: Ordering Provider Reason For Exam: ICP? Bleed? Fall (accession [id number]), fx? (accession [id number]) Technologist Note: None. Additional: None. TECHNIQUE: CT of the head and cervical spine was performed without contrast according to standard protocol. CT dose reduction technique was used, including Automated Exposure Control. COMPARISON: No prior study is available for comparison at the time of this dictation. FINDINGS: Head: No acute intra- or extra-axial fluid collections are identified. There is mild cerebral volume loss with associated ex vacuo ventricular dilatation. The basilar cisterns are patent. No mass effect or midline shift is seen. The cali-white matter differentiation is normal. Extensive patchy, confluent periventricular and subcortical white matter hypoattenuation is a nonspecific finding but can be seen in the setting of chronic small vessel ischemic disease. There is vascular calcification of the carotid siphons. Patchy area of lucency in the left parietal calvarium which could represent osseous hemangioma. No acute calvarial fracture is identified. Suspected tiny lipomas are noted along the falx. Other than bilateral cataract extractions, the orbits appear normal. There is mild paranasal sinus disease. The mastoid air cells are clear. No soft tissue abnormality is identified. Cervical spine: Trace retrolisthesis are C5 on C6 and anterolisthesis of C7 on T1. Otherwise, the alignment is maintained. Vertebral bodies are normal in height without evidence of acute fracture. Diffuse osteopenia. There is prominent lucent lesions in the C7 vertebral body left aspect concerning for a vertebral hemangioma. There are additional small lucent lesions throughout the imaged cervical spine which are nonspecific. Clinical correlation is however recommended. Other than middle atlantoaxial joint osteoarthritis, the craniocervical junction appears normal. There is advanced degenerative disc disease. Mild central canal stenosis secondary to calcification of the ligamentum flavum at C4 and broad-based disc bulge at C5-C6. There are varying degrees of advanced facet osteoarthritis. There are varying degrees of advanced uncovertebral joint osteoarthritis with the same degree of neural foraminal stenosis most notable at C6-C7. There is atherosclerotic calcification of the carotid bifurcations. Brain injury guidelines: Skull fracture: No Subdural hematoma: No subdural hematoma. Epidural hematoma: No epidural hematoma. Intraparenchymal hemorrhage: No intraparenchymal hemorrhage. Subarachnoid hemorrhage: No subarachnoid hemorrhage. Intraventricular hemorrhage: No. Midline shift: No. Procedure Note Rose Farnsworth MD - 08/20/2024 PROCEDURE: CT HEAD WO CONTRAST, CT CERVICAL SPINE WO CONTRAST,DATE/TIME OF EXAM: 08/20/2024 4:56 PM, LOCATION [facility] INDICATION: W19.XXXA: Fall, initial encounter S61.219A: Finger laceration, initial encounter M79.604: Right leg pain EXAMINATION: 1.Computed tomography (CT) of the head without contrast 2.CT of the cervical spine without contrast ADDITIONAL CLINICAL INFORMATION: Ordering Provider Reason For Exam: ICP? Bleed? Fall ([id number]), fx? (accession [id number]) Technologist Note: None. Additional: None. TECHNIQUE: CT of the head and cervical spine was performed withoutcontrast according to standard protocol. CT dose reduction technique was used, including Automated Exposure Control. COMPARISON: No prior study is available for comparison at the time ofthis dictation. FINDINGS: Head: No acute intra- or extra-axial fluid collections are identified. Thereis mild cerebral volume loss with associated ex vacuo ventriculardilatation. The basilar cisterns are patent. No mass effect or midline shift isseen. The cali-white matter differentiation is normal. Extensive patchy, confluent periventricular and subcortical white matter hypoattenuation madie nonspecific finding but can be seen in the setting of chronic smallvessel ischemic disease. There is vascular calcification of the carotidsiphons. Patchy area of lucency in the left parietal calvarium which couldrepresent osseous hemangioma. No acute calvarial fracture is identified. Suspected tiny lipomas are noted along the falx. Other than bilateral cataract extractions, the orbits appear normal. There is mild paranasal sinus disease. The mastoid air cells are clear. No soft tissue abnormality is identified. Cervical spine: Trace retrolisthesis are C5 on C6 and anterolisthesis of C7 on T1. Otherwise, the alignment is maintained. Vertebral bodies are normal in height without evidence of acute fracture. Diffuse osteopenia. There is prominent lucent lesions in the C7 vertebral body left aspect concerning for a vertebral hemangioma. There are additional small lucent lesions throughout the imaged cervical spine which are nonspecific. Clinical correlation is however recommended. Other than middle atlantoaxial joint osteoarthritis, the craniocervical junction appears normal. There is advanced degenerative disc disease. Mild central canal stenosissecondary to calcification of the ligamentum flavum at C4 and broad-based discbulge at C5-C6. There are varying degrees of advanced facet osteoarthritis.There are varying degrees of advanced uncovertebral joint osteoarthritis withthe same degree of neural foraminal stenosis most notable at C6-C7. There is atherosclerotic calcification of the carotid bifurcations. Brain injury guidelines: Skull fracture: No Subdural hematoma: No subdural hematoma. Epidural hematoma: No epidural hematoma. Intraparenchymal hemorrhage: No intraparenchymal hemorrhage. Subarachnoid hemorrhage: No subarachnoid hemorrhage. Intraventricular hemorrhage: No. Midline shift: No. IMPRESSION: 1.No acute intracranial hemorrhage, midline shift, or significant mass effect. 2.No evidence of acute fracture in the cervical spine. Report dictated by Hailee Montana MD (radiology nurse). Rose Stone MD have personally reviewed and interpretedthis examination/study. > Interpreting Provider: Rose Farnsworth MD on 08/20/2024 7:33 PM Washington Dobson MD CT ORDERABLES Final Result * CT HEAD WO CONTRAST (08/20/2024 4:56 PM CDT) Anatomical Region Laterality Modality Head Computed Tomogra phy 08/20/2024 4:58 PM CDT Impressions 08/20/2024 7:33 PM CDT IMPRESSION: 1.No acute intracranial hemorrhage, midline shift, or significant mass effect. 2.No evidence of acute fracture in the cervical spine. Report dictated by Hailee Montana MD (radiology nurse). Rose Stone MD have personally reviewed and interpreted this examination/study. > Interpreting Provider: Rose Farnsworth MD on 08/20/2024 7:33 PM Narrative 08/20/2024 7:33 PM CDT PROCEDURE: CT HEAD WO CONTRAST, CT CERVICAL SPINE WO CONTRAST, DATE/TIME OF EXAM: 08/20/2024 4:56 PM, LOCATION [facility] INDICATION: W19.XXXA: Fall, initial encounter S61.219A: Finger laceration, initial encounter M79.604: Right leg pain EXAMINATION: 1.Computed tomography (CT) of the head without contrast 2.CT of the cervical spine without contrast ADDITIONAL CLINICAL INFORMATION: Ordering Provider Reason For Exam: ICP? Bleed? Fall (accession [id number]), fx? (accession [id number]) Technologist Note: None. Additional: None. TECHNIQUE: CT of the head and cervical spine was performed without contrast according to standard protocol. CT dose reduction technique was used, including Automated Exposure Control. COMPARISON: No prior study is available for comparison at the time of this dictation. FINDINGS: Head: No acute intra- or extra-axial fluid collections are identified. There is mild cerebral volume loss with associated ex vacuo ventricular dilatation. The basilar cisterns are patent. No mass effect or midline shift is seen. The cali-white matter differentiation is normal. Extensive patchy, confluent periventricular and subcortical white matter hypoattenuation is a nonspecific finding but can be seen in the setting of chronic small vessel ischemic disease. There is vascular calcification of the carotid siphons. Patchy area of lucency in the left parietal calvarium which could represent osseous hemangioma. No acute calvarial fracture is identified. Suspected tiny lipomas are noted along the falx. Other than bilateral cataract extractions, the orbits appear normal. There is mild paranasal sinus disease. The mastoid air cells are clear. No soft tissue abnormality is identified. Cervical spine: Trace retrolisthesis are C5 on C6 and anterolisthesis of C7 on T1. Otherwise, the alignment is maintained. Vertebral bodies are normal in height without evidence of acute fracture. Diffuse osteopenia. There is prominent lucent lesions in the C7 vertebral body left aspect concerning for a vertebral hemangioma. There are additional small lucent lesions throughout the imaged cervical spine which are nonspecific. Clinical correlation is however recommended. Other than middle atlantoaxial joint osteoarthritis, the craniocervical junction appears normal. There is advanced degenerative disc disease. Mild central canal stenosis secondary to calcification of the ligamentum flavum at C4 and broad-based disc bulge at C5-C6. There are varying degrees of advanced facet osteoarthritis. There are varying degrees of advanced uncovertebral joint osteoarthritis with the same degree of neural foraminal stenosis most notable at C6-C7. There is atherosclerotic calcification of the carotid bifurcations. Brain injury guidelines: Skull fracture: No Subdural hematoma: No subdural hematoma. Epidural hematoma: No epidural hematoma. Intraparenchymal hemorrhage: No intraparenchymal hemorrhage. Subarachnoid hemorrhage: No subarachnoid hemorrhage. Intraventricular hemorrhage: No. Midline shift: No. Procedure Note Rose Farnsworth MD - 08/20/2024 PROCEDURE: CT HEAD WO CONTRAST, CT CERVICAL SPINE WO CONTRAST,DATE/TIME OF EXAM: 08/20/2024 4:56 PM, LOCATION [facility] INDICATION: W19.XXXA: Fall, initial encounter S61.219A: Finger laceration, initial encounter M79.604: Right leg pain EXAMINATION: 1.Computed tomography (CT) of the head without contrast 2.CT of the cervical spine without contrast ADDITIONAL CLINICAL INFORMATION: Ordering Provider Reason For Exam: ICP? Bleed? Fall ([id number]), fx? (accession [id number]) Technologist Note: None. Additional: None. TECHNIQUE: CT of the head and cervical spine was performed withoutcontrast according to standard protocol. CT dose reduction technique was used, including Automated Exposure Control. COMPARISON: No prior study is available for comparison at the time ofthis dictation. FINDINGS: Head: No acute intra- or extra-axial fluid collections are identified. Thereis mild cerebral volume loss with associated ex vacuo ventriculardilatation. The basilar cisterns are patent. No mass effect or midline shift isseen. The cali-white matter differentiation is normal. Extensive patchy, confluent periventricular and subcortical white matter hypoattenuation madie nonspecific finding but can be seen in the setting of chronic smallvessel ischemic disease. There is vascular calcification of the carotidsiphons. Patchy area of lucency in the left parietal calvarium which couldrepresent osseous hemangioma. No acute calvarial fracture is identified. Suspected tiny lipomas are noted along the falx. Other than bilateral cataract extractions, the orbits appear normal. There is mild paranasal sinus disease. The mastoid air cells are clear. No soft tissue abnormality is identified. Cervical spine: Trace retrolisthesis are C5 on C6 and anterolisthesis of C7 on T1. Otherwise, the alignment is maintained. Vertebral bodies are normal in height without evidence of acute fracture. Diffuse osteopenia. There is prominent lucent lesions in the C7 vertebral body left aspect concerning for a vertebral hemangioma. There are additional small lucent lesions throughout the imaged cervical spine which are nonspecific. Clinical correlation is however recommended. Other than middle atlantoaxial joint osteoarthritis, the craniocervical junction appears normal. There is advanced degenerative disc disease. Mild central canal stenosissecondary to calcification of the ligamentum flavum at C4 and broad-based discbulge at C5-C6. There are varying degrees of advanced facet osteoarthritis.There are varying degrees of advanced uncovertebral joint osteoarthritis withthe same degree of neural foraminal stenosis most notable at C6-C7. There is atherosclerotic calcification of the carotid bifurcations. Brain injury guidelines: Skull fracture: No Subdural hematoma: No subdural hematoma. Epidural hematoma: No epidural hematoma. Intraparenchymal hemorrhage: No intraparenchymal hemorrhage. Subarachnoid hemorrhage: No subarachnoid hemorrhage. Intraventricular hemorrhage: No. Midline shift: No. IMPRESSION: 1.No acute intracranial hemorrhage, midline shift, or significant mass effect. 2.No evidence of acute fracture in the cervical spine. Report dictated by Hailee Montana MD (radiology nurse). Rose Stone MD have personally reviewed and interpretedthis examination/study. > Interpreting Provider: Rose Farnsworth MD on 08/20/2024 7:33 PM Washington Dobson MD CT ORDERABLES Final Result * XR Hand Right 3Vw or More (08/20/2024 4:21 PM CDT) Anatomical Region Laterality Modality Wrist / Hand Digital Radiogra phy 08/20/2024 5:33 PM CDT Impressions 08/21/2024 9:36 AM CDT IMPRESSION: No acute fracture or dislocation. Osteoarthritis. Chondrocalcinosis. Questionable tiny foreign bodies at the third digit distally. Report dictated by Hailee Montana MD (radiology nurse). Faye Stone MD have personally reviewed and interpreted this examination/study. > Interpreting Provider: Faye Rome MD on 08/21/2024 9:36 AM Narrative 08/21/2024 9:36 AM CDT PROCEDURE: XR HAND RIGHT 3VW OR MORE, DATE/TIME OF EXAM: 08/20/2024 4:21 PM, LOCATION [facility] INDICATION: W19.XXXA: Fall, initial encounter ADDITIONAL CLINICAL INFORMATION: Ordering Provider Reason For Exam: fx? fb? Technologist Note: Additional: COMPARISON: None. FINDINGS/IMPRESSION: Triangular fibrocartilage complex chondrocalcinosis. Calcification of the scapholunate ligament. Well-corticated osseous fragment at the base of the first metacarpal is favored to be chronic. Minimal punctate radiopacities are seen at the third digit laterally at the level of the distal interphalangeal joint. Questionable for foreign body. Otherwise no evidence of retained foreign body. No acute fracture or dislocation. Degenerative changes are seen at the triscaphe joint and first carpometacarpal joint. There is hyperextension at the fifth DIP joint. Mild negative ulnar variance. Bone density is decreased. There is soft tissue swelling of the third digit. Procedure Note Faye Rome MD - 08/21/2024 PROCEDURE: XR HAND RIGHT 3VW OR MORE, DATE/TIME OF EXAM: 54:21 PM, LOCATION [facility] INDICATION: W19.XXXA: Fall, initial encounter ADDITIONAL CLINICAL INFORMATION: Ordering Provider Reason For Exam: fx? fb? Technologist Note: Additional: COMPARISON: None. FINDINGS/IMPRESSION: Triangular fibrocartilage complex chondrocalcinosis. Calcification ofthe scapholunate ligament. Well-corticated osseous fragment at the base ofthe first metacarpal is favored to be chronic. Minimal punctateradiopacities are seen at the third digit laterally at the level of the distal interphalangeal joint. Questionable for foreign body. Otherwise noevidence of retained foreign body. No acute fracture or dislocation. Degenerative changes are seen at the triscaphe joint and first carpometacarpal joint. There is hyperextensionat the fifth DIP joint. Mild negative ulnar variance. Bone density is decreased. There is soft tissue swelling of the third digit. IMPRESSION: No acute fracture or dislocation. Osteoarthritis. Chondrocalcinosis. Questionable tiny foreign bodies at the third digit distally. Report dictated by Hailee Montana MD (radiology nurse). Faye Stone MD have personally reviewed and interpreted this examination/study. > Interpreting Provider: Faye Rome MD on 08/21/2024 9:36 AM Washington Dobson MD DIAGNOSTIC IMAGING ORD ERABLES Final Result * XR Ankle Right 3Vw or More (08/20/2024 4:21 PM CDT) Anatomical Region Laterality Modality Lower Extremity Digital Radiogra phy 08/20/2024 5:31 PM CDT Impressions 08/21/2024 9:27 AM CDT IMPRESSION: No acute fracture, dislocation, or retained foreign body. Report dictated by Hailee Montana MD (radiology nurse). Faye Stone MD have personally reviewed and interpreted this examination/study. > Interpreting Provider: Faye Rome MD on 08/21/2024 9:27 AM Narrative 08/21/2024 9:27 AM CDT PROCEDURE: XR ANKLE RIGHT 3VW OR MORE, DATE/TIME OF EXAM: 08/20/2024 4:21 PM, LOCATION [facility] INDICATION: W19.XXXA: Fall, initial encounter ADDITIONAL CLINICAL INFORMATION: Ordering Provider Reason For Exam: fx? fb? Technologist Note: Additional: COMPARISON: None. FINDINGS: Calcifications of the Achilles tendon. Posterior and plantar calcaneal enthesophytes. No acute fracture or dislocation. The ankle mortise is intact. The bones are mildly diffusely demineralized. No soft tissue swelling. Procedure Note Faye Rome MD - 08/21/2024 PROCEDURE: XR ANKLE RIGHT 3VW OR MORE, DATE/TIME OF EXAM: 54:21 PM, LOCATION [facility] INDICATION: W19.XXXA: Fall, initial encounter ADDITIONAL CLINICAL INFORMATION: Ordering Provider Reason For Exam: fx? fb? Technologist Note: Additional: COMPARISON: None. FINDINGS: Calcifications of the Achilles tendon. Posterior and plantar calcaneal enthesophytes. No acute fracture or dislocation. The ankle mortise is intact. The bones are mildly diffusely demineralized. No soft tissue swelling. IMPRESSION: No acute fracture, dislocation, or retained foreign body. Report dictated by Hailee Montana MD (radiology nurse). Faye Stone MD have personally reviewed and interpreted this examination/study. > Interpreting Provider: Faye Rome MD on 08/21/2024 9:27 AM Washington Dobson MD DIAGNOSTIC IMAGING ORD ERABLES Final Result * XR Tibia Fibula Right 2Vw (08/20/2024 4:20 PM CDT) Anatomical Region Laterality Modality Lower Extremity Digital Radiogra phy 08/20/2024 5:27 PM CDT Impressions 08/21/2024 9:25 AM CDT IMPRESSION: No acute tibial or fibular fracture identified. No foreign body. Large wounds. Report dictated by Hailee Montana MD (radiology nurse). Faye Stone MD have personally reviewed and interpreted this examination/study. > Interpreting Provider: Faye Rome MD on 08/21/2024 9:25 AM Narrative 08/21/2024 9:25 AM CDT PROCEDURE: XR TIBIA FIBULA RIGHT 2VW, DATE/TIME OF EXAM: 08/20/2024 4:21 PM, LOCATION [facility] INDICATION: W19.XXXA: Fall, initial encounter ADDITIONAL CLINICAL INFORMATION: Ordering Provider Reason For Exam: fx? fb? Technologist Note: Additional: COMPARISON: None. FINDINGS: The tibia and fibula are intact without evidence of acute fracture. Bone density is decreased. No soft tissue swelling is present. Vascular calcifications. Soft tissue ulceration is present over the anterior, lateral and medial mid jones. No evidence of retained foreign body. Procedure Note Faye Rome MD - 08/21/2024 PROCEDURE: XR TIBIA FIBULA RIGHT 2VW, DATE/TIME OF EXAM: 54:21 PM, LOCATION [facility] INDICATION: W19.XXXA: Fall, initial encounter ADDITIONAL CLINICAL INFORMATION: Ordering Provider Reason For Exam: fx? fb? Technologist Note: Additional: COMPARISON: None. FINDINGS: The tibia and fibula are intact without evidence of acute fracture. Bone density is decreased. No soft tissue swelling is present. Vascular calcifications. Soft tissue ulceration is present over the anterior, lateral and medial mid jones. No evidence of retained foreign body. IMPRESSION: No acute tibial or fibular fracture identified. No foreign body. Large wounds. Report dictated by Hailee Montana MD (radiology nurse). Faye Stone MD have personally reviewed and interpreted this examination/study. > Interpreting Provider: Faye Rome MD on 08/21/2024 9:25 AM us Washington Dobson MD DIAGNOSTIC IMAGING ORD ERABLES Final Result * XR Knee Right 3Vw (08/20/2024 4:20 PM CDT) Anatomical Region Laterality Modality Lower Extremity Digital Radiogra phy 08/20/2024 5:22 PM CDT Impressions 08/21/2024 8:34 AM CDT IMPRESSION: No acute fracture or dislocation identified. Report dictated by Hailee Montana MD (radiology nurse). Faye Stone MD have personally reviewed and interpreted this examination/study. > Interpreting Provider: Faye Rome MD on 08/21/2024 8:34 AM Narrative 08/21/2024 8:34 AM CDT PROCEDURE: XR KNEE RIGHT 3VW, DATE/TIME OF EXAM: 08/20/2024 4:20 PM, LOCATION [facility] INDICATION: W19.XXXA: Fall, initial encounter ADDITIONAL CLINICAL INFORMATION: Ordering Provider Reason For Exam: fx? fb? Technologist Note: Additional: COMPARISON: None. FINDINGS: The osseous structures are intact and well aligned without acute fracture or dislocation. Mild degenerative changes most notable at the medial tibial femoral joint. There is calcification of the menisci and articular cartilage, consistent with chondrocalcinosis. No joint effusion is seen. Bone density and texture are normal. Vascular calcifications. There is calcification of the proximal gastrocnemius. No evidence of foreign body. Procedure Note Faye Rome MD - 08/21/2024 PROCEDURE: XR KNEE RIGHT 3VW, DATE/TIME OF EXAM: 08/20/2024 4:20 PM, LOCATION [facility] INDICATION: W19.XXXA: Fall, initial encounter ADDITIONAL CLINICAL INFORMATION: Ordering Provider Reason For Exam: fx? fb? Technologist Note: Additional: COMPARISON: None. FINDINGS: The osseous structures are intact and well aligned without acutefracture or dislocation. Mild degenerative changes most notable at the medialtibial femoral joint. There is calcification of the menisci and articular cartilage, consistent with chondrocalcinosis. No joint effusion is seen. Bone density and texture are normal. Vascular calcifications. There is calcification of the proximal gastrocnemius. No evidence of foreignbody. IMPRESSION: No acute fracture or dislocation identified. Report dictated by Hailee Montana MD (radiology nurse). Faye Stone MD have personally reviewed and interpreted this examination/study. > Interpreting Provider: Faye Rome MD on 08/21/2024 8:34 AM us Washington Dobson MD DIAGNOSTIC IMAGING ORD ERABLES Final Result from Last [address] [facility] MEDICARE Advance Directives * Full Code (Latest Code Status on File) Date Activated Date Inactivated Comments 08/21/2024 12:00 AM 08/21/2024 5:46 PM Care Teams System Analyst Relationship Specialty Start Date End Date Tye Grajeda MD [address] [place], [place] [id number] PCP - General Family Medicine 08/20/24
--- OUTSIDE RECORDS SUMMARY | 2024-10-07 14:46 | XMS_ITS | Continuity of Care Document ---
Author Organization [facility] Address [address] [place] [address] Phone Care Team Providers Care Minister Helper Name Role Phone [facility] Unavailable Unavail able Lidia Mauro Unavailable Unavailable Procedures Procedure Date Progressive Lens, Polycarb Eye Exam & Treatment Office/outpatient Visit, Est No Script Progressive Lens, Polycarb [facility] Frames Purchases Tax - Medical Eye Exam & Treatment Refraction Advance Directives Directive Yes / No Effective Date File Name No Information Encounters Encounter Description Practice Location Reason(s) For Visit Diagnoses Date Provider Providers Copied on Encounter [facility], [address] [place] [address] [address], [place], [place], [id number], [place] tel:[phone] [facility] No Information May-0 5-201 0 [facility]. [address], [address], [place], [id number], [place]. tel:[phone] Referring Provider: Luiz Luna, [address] [facility] [address], [place], [address]. tel:[phone] ellison Provider: Lidia Mauro, [address] [place], [address]. tel:[phone] [facility], [address] [place] [address] [address], [place], [place], [id number], tel:[phone] [facility] No Information May-0 3-201 0 Krishnasamy Luiz. [address] [facility] [address], [place], [address], [place]. tel:[phone] Office/outpa tient Visit, Est [facility], [address], [place], [place], [id number], [place] tel:[phone] [facility] No Information 9 Krishnasamy Luiz. [address] [facility] [address], [address], [place]. tel:[phone] [facility], [address], [place], [place], [address], [place] tel:[phone] [facility] No Information 7 [facility]. [address], [address], [place], [place], [address], [place]. tel:[phone] Referring Provider: Dale Ivy, [address], [place], [address]. tel:[phone] g Provider: Lauren Key, [address] [place], [place], [facility]. tel:[phone] [facility], [address], [place], [place], [address], [place] tel:[phone] [facility] No Information 7 Chin Hunter. [address], [address] [place], [place], [address], [place]. tel:[phone] Family History Family Member Type Diagnosis Age At Onset No Information Payers Payer name Insurance type Covered republican ID Authoriza tion(s) No Information Social History Type Description Quantity Date Captured Comments Sex Female Smoking Status No Information Chief Complaint And Reason For Visit No Information Reason For Referral Reason For Referral No Information History Of Present Illness Encounter Date Complaint History Of Prese nt Illness No Information Functional Status Date Functional Assessmen t No Information Instructions Date Instruction Additional Infor mation No Information Assessments Type Assessment Date No Information Patient Care Teams Name Effective Dates (start - stop) Status Members No Information
[2024-10-07 14:57] VITALS: BP 129/57; PULSE 74; RESP 16; TEMP 36.6; O2SAT 97
[2024-10-07 17:21] LABS: Hematocrit 36.3 % (37.0-47.0); Hemoglobin 11.9 g/dL (12.0-15.0); Immature Granulocyte Percent A 0.7 % (0-0.5); Lymphocytes Absolute Auto 1.05 K/mm3 (0.9-3.2); Mean Corpuscular HGB Conc 32.8 g/dl (32-36); Mean Corpuscular Hemoglobin 32.4 pg (26-34); Mean Corpuscular Volume 98.9 fl (80-100); Nucleated Red Blood Cells Absolute Auto 0.000 K/mm3 (0.0-0.012); Nucleated Red Blood Cells Perc 0.0 % (0.0-0.2); Platelet Count Result 183 k/mm3 (150-375); Red Blood Count 3.67 M/mm3 (4.2-5.4); White Blood Count 10.0 K/mm3 (4.5-10.0)
[2024-10-07 17:23] LABS: Add Urine Microscopic? YES; Appearance Urine Cloudy (Clear); Glucose Urine UA Negative (Negative); Leukocyte Esterase Ur 2+ LEU/UL (Negative); Nitrate Urine Positive (Negative); Non Pathogenic Casts 0-2; Specific Grav Ur 1.017 (1.001-1.035)
[2024-10-07 17:28] LABS: Alanine Aminotransferase 25 U/L (6-35); Albumin Level 3.2 g/dL (3.5-5.1); Alkaline Phosphatase 120 U/L (38-126); Anion Gap 7 mmol/L (4-12); Aspartate Amino Transferase 37 U/L (14-36); Bilirubin,Total 0.3 mg/dL (0.2-1.3); Blood Urea Nitrogen 21 mg/dL (7-17); Calcium 8.8 mg/dL (8.4-10.2); Carbon Dioxide 23 mmol/L (22-30); Chloride 104 mmol/L (98-107); Estimated CRCL calculation 50 ml/min; Estimated Glomerular Filt Rate > 60; Glucose 121 mg/dL (65-110); Lipase 36 U/L (23-300); Potassium 3.7 mmol/L (3.4-5.0); Sodium 134 mmol/L (137-145); Total Protein 6.5 g/dL (6.3-8.2)
[2024-10-07 17:35] LABS: Magnesium 2.3 mg/dL (1.6-2.3)
--- OUTSIDE RECORDS SUMMARY | 2024-10-07 17:38 | XMS_ITS | Clinical Summary ---
Author Organization [facility] Address [address] [place] [address] Care Team Providers Care Machine Maintenance Supervisor Name Role Phone Tye Grajeda MD Primary Care Provider [phone] Source Comments [facility],non-owned Affiliates and Associated Physician Practices is amultiple site organization consisting of ambulatory clinics and hospital sitesin [place], [place], [place] and [place]. This disclosure is being madepursuant to the Care Everywhere program and may not contain all information available regarding this patient. Last updated 17.[facility] Allergies No known active allergies Medications * [...] Description 10/02/2024 11:45 AM CDT Office Visit [facility] - General Surgery [address] [place] [address], [facility] [place] [address] Laceration of right lower extremity, initial encounter (Primary Dx) 10/02/2024 Travel 09/23/2024 Travel 09/19/2024 Telephone [facility] - General Surgery [address] [place] [address], [place] [address] Meghna Avalos, naval aircrewman/Incision Check 09/18/2024 11:45 AM CDT Office Visit [facility] - General Surgery [address] [place] [address], [place] [address] Open wound of right lower extremity, subsequent encounter (Primary Dx) 09/18/2024 Travel 09/11/2024 11:45 AM CDT Office Visit [facility] - General Surgery [address] [place] [address], [place] [address] Fall, initial encounter (Primary Dx); Laceration of right lower extremity, initial encounter; Right leg pain 09/11/2024 Telephone [facility] - General Surgery [address] [place] [address], [place] [address] Meghna Avalos, MIYA Coordination Of Care 09/11/2024 Travel 09/04/2024 12:00 PM CDT Clinical Support [facility] - General Surgery [address] [place] [address], [place] [address] Wound of right lower extremity, sequela 09/04/2024 Travel 08/28/2024 12:00 PM CDT Clinical Support [facility] - General Surgery [address] [facility], [facility] [place] [address] Laceration of right lower extremity, initial encounter 08/28/2024 Telephone [facility] - General Surgery [address] [facility], [place] [address] Meghna Avalos RN Coordination Of Care 08/28/2024 Travel 08/22/2024 Travel 08/20/2024 3:03 PM CDT - 08/21/2024 4:41 PM CDT Emergency [facility] [address] [place] [address] Washington Dobson MD Fite, Emily A, MD [...] [facility] - General Surgery [address] [facility], [place] [address] Health Maintenance Due Date Last Done Comments [...] CBC W/O DIFFERENTIAL (08/21/2024 7:33 AM CDT) [facility] WBC 10.7 4.0 - 10.7 x10E9/L 08/21/2024 7:53 AM [facility] RBC Count 3.98 3.90 - 5.20 x10E12/L 08/21/2024 7:53 AM [facility] Hemoglobin 13.2 11.9 - 15.8 g/dL 08/21/2024 7:53 AM [facility] Hematocrit 38.9 34.8 - 46.1 % 08/21/2024 7:53 AM [facility] MCV 97.7 80.0 - 98.0 fL 08/21/2024 7:53 AM [facility] MCH 33.2 26.7 - 33.6 pg 08/21/2024 7:53 AM [facility] MCHC 33.9 31.7 - 36.3 g/dL 08/21/2024 7:53 AM [facility] RDW-CV 14.5 11.3 - 14.8 % 08/21/2024 7:53 AM [facility] Platelet Count 147(L) 150 - 420 x10E9/L 08/21/2024 7:53 AM [facility] MPV 10.9 7.8 - 11.4 fL 08/21/2024 7:53 AM [facility] Blood BLOOD SPECIMEN / Unknown Venipuncture / Unknown 08/21/2024 7:33 AM CDT 08/21/2024 7:44 AM T us Jennifer Bautista MD LAB - HEMATOLOGY ORDERABLES Dominga madeline Result [facility] [address] [place] [address], [facility] [phone] * (ABNORMAL) BASIC METABOLIC PANEL (CALCIUM TOTAL) (08/21/2024 7:33 AM CDT) BUN 18 7 - 26 mg/dL 08/21/2024 10:49 AM [facility] Creatinine 0.62 0.56 - 0.96 mg/dL 08/21/2024 10:49 AM [facility] Sodium 140 136 - 145 mmol/L 08/21/2024 10:49 AM [facility] Potassium 3.8 3.5 - 4.5 mmol/L 08/21/2024 10:49 AM [facility] Chloride 111(H) 98 - 107 mmol/L 08/21/2024 10:49 AM [facility] CO2 23 22 - 29 mmol/L 08/21/2024 10:49 AM [facility] Glucose 120(H) 70 - 99 mg/dL 08/21/2024 10:49 AM [facility] Calcium 8.5 8.4 - 10.2 mg/dL 08/21/2024 10:49 AM [facility] Anion Gap 6 6 - 16 08/21/2024 10:49 AM [facility] BUN/Creatinine Ratio 29(H) 7 - 23 08/21/2024 10:49 AM [facility] Osmolality Calculated 293 275 - 295 mOsm/kg 08/21/2024 10:49 AM [facility] eGFR by CKD-EPI 86(L) >=90 mL/min/1.7 3 m2 08/21/2024 10:49 AM [facility] Blood BLOOD SPECIMEN / Unknown Venipuncture / Unknown 08/21/2024 7:33 AM CDT 08/21/2024 7:44 AM CDT Jennifer Bautista MD LAB - CHEMISTRY ORDERABLES Final Result Performing Organization Address [facility]/ZIP Co de Phone Number [address] [address], [facility] [phone] * PHOSPHORUS BLOOD (08/21/2024 7:33 AM CDT) Phosphorus 2.9 2.9 - 5.1 mg/dL 08/21/2024 10:49 AM CDT [facility] Blood BLOOD SPECIMEN / Unknown Venipuncture / Unknown 08/21/2024 7:33 AM CDT 08/21/2024 7:44 AM CDT Jennifer Bautista MD LAB - CHEMISTRY ORDERABLES Final Result Performing Organization Address [facility] Co de Phone Number [address] [address], [facility] [phone] * MAGNESIUM BLOOD (08/21/2024 7:33 AM CDT) Magnesium 2.1 1.6 - 2.6 mg/dL 08/21/2024 10:49 AM CDT [facility] Blood BLOOD SPECIMEN / Unknown Venipuncture / Unknown 08/21/2024 7:33 AM CDT 08/21/2024 7:44 AM CDT Jennifer Bautista MD LAB - CHEMISTRY ORDERABLES Final Result Performing Organization Address [facility] Co de Phone Number [address] [address], [facility] [phone] * CT Chest Abdomen Pelvis W Cont [...] indicated. > Dictated by Kostas Owusu MD, (residential service technician). I, Sudarshan Ramesh MD have personally reviewed and interpreted this examination/study. > Interpreting Provider: Sudarshan Ramesh MD on 08/21/2024 2:31 AM Narrative 08/21/2024 2:31 AM CDT PROCEDURE: CT CHEST ABDOMEN PELVIS W CONT, DATE/TIME OF EXAM: 08/20/2024 8:58 PM, LOCATION [facility] INDICATION: W19.XXXA: Fall, initial encounter S61.219A: [...] CONT, DATE/TIME OF EXAM:08/20/2024 8:58 PM, LOCATION [facility] INDICATION: W19.XXXA: Fall, initial encounter S61.219A: [...] indicated. > Dictated by Kostas Owusu MD, (residential service technician). Sudarshan Stone MD have personally reviewed and [...] Report dictated by Jose Angel Palacio MD, (Pharmacist Aide). Rose Stone MD have personally reviewed and interpreted this examination/study. > Interpreting Provider: Rose Farnsworth MD on 08/20/2024 11:51 PM Narrative 08/20/2024 11:51 PM CDT PROCEDURE: CT THORACIC SPINE WO CONTRAST, CT LUMBAR SPINE WO CONTRAST, DATE/TIME OF EXAM: 08/20/2024 8:58 PM, LOCATION [facility] INDICATION: W19.XXXA: Fall, initial encounter S61.219A: [...] DATE/TIME OF EXAM: 08/20/2024 8:58 PM, LOCATION [facility] INDICATION: W19.XXXA: Fall, initial encounter S61.219A: [...] Report dictated by Jose Angel Palacio MD, (Pharmacist Aide). Rose Stone MD have personally reviewed [...] Report dictated by Jose Angel Palacio MD, (Pharmacist Aide). Rose Stone MD have personally reviewed and interpreted this examination/study. > Interpreting Provider: Rose Farnsworth MD on 08/20/2024 11:51 PM Narrative 08/20/2024 11:51 PM CDT PROCEDURE: CT THORACIC SPINE WO CONTRAST, CT LUMBAR SPINE WO CONTRAST, DATE/TIME OF EXAM: 08/20/2024 8:58 PM, LOCATION [facility] INDICATION: W19.XXXA: Fall, initial encounter S61.219A: [...] DATE/TIME OF EXAM: 08/20/2024 8:58 PM, LOCATION [facility] INDICATION: W19.XXXA: Fall, initial encounter S61.219A: [...] Report dictated by Jose Angel Palacio MD, (Pharmacist Aide). I, Rose Farnsworth MD have personally [...] Alternatives discussed: No treatment and delayed treatment [place] protocol: Procedure explained and questions answered to [...] O POS 08/20/2024 7:1 0 PM CDT [facility] Blood Bank BLOOD SPECIMEN / Unknown Venipuncture / Unknown 08/20/2024 6:24 PM CDT 08/20/2024 6:30 PM CDT Washington Dobson MD LAB - BLOOD BANK ORDER STEPHANIE Final Result [facility] [address] [place] [address], [facility] [phone] * (ABNORMAL) URINALYSIS REFLEX MICROSCOPIC REFLEX CULTURE (08/20/2024 5:38 PM CDT) Color UA Colorless(A) Yellow, Straw 08/20/2024 5:57 PM CDT [facility] Clarity UA Clear Clear 08/20/2024 5:57 PM CDT [facility] Glucose UA 2+(A) Normal 08/20/2024 5:57 PM CDT [facility] Bilirubin UA Negative Negative 08/20/2024 5:57 PM CDT [facility] Ketone UA Negative Negative 08/20/2024 5:57 PM CDT [facility] Specific Gypsum UA 1.008 1.005 - 1.030 08/20/2024 5:57 PM CDT [facility] Blood UA Negative Negative 08/20/2024 5:57 PM CDT [facility] pH UA 6.5 5.0 - 8.0 pH 08/20/2024 5:57 PM CDT [facility] Protein UA Negative Negative 08/20/2024 5:57 PM CDT [facility] Urobilinogen UA Normal Normal mg/dL 08/20/2024 5:57 PM CDT [facility] Nitrite UA Negative Negative 08/20/2024 5:57 PM T [facility] Leukocyte Esterase UA Negative Negative 08/20/2024 5:57 PM T [facility] Reflex Status Culture not indicated 08/20/2024 5:57 PM [facility] Urine URINE SPECIMEN OBTAINED BY CLEAN CATCH PROCEDURE / Unknown Collection / Unknown 08/20/2024 5:38 PM CDT 08/20/2024 5:47 PM CDT Washington Dobson MD LAB - URINALYSIS ORDER STEPHANIE Final Result Performing Organization Address [facility] Co de Phone Number [address] [address] [phone] * URINE DRUG SCREEN IMMUNOASSAY (08/20/2024 5:38 PM CDT) Pathologist [facility] Amphetamines Screen Urine Negative Negative: < 1000 ng/mL 08/20/2024 6:17 PM CDT [facility] Barbiturates Screen Urine Negative Negative: < 200 ng/mL 08/20/2024 6:17 PM [facility] Benzodiazepine Screen Urine Negative Negative: < 200 ng/mL 08/20/2024 6:17 PM T [facility] Opiates Urine Negative Negative: < 300 ng/mL 08/20/2024 6:17 PM CDT [facility] Cocaine Metabolites Urine Negative Negative: < 300 ng/mL 08/20/2024 6:17 PM CDT [facility] Phencyclidine Screen Urine Negative Negative: < 25 ng/ml 08/20/2024 6:17 PM CDT [facility] Cannabinoids Screen Urine Negative Negative: <50 ng/mL 08/20/2024 6:17 PM CDT [facility] Methadone Screen Urine Negative Negative: < 300 ng/mL 08/20/2024 6:17 PM CDT [facility] Fentanyl Screen Urine Negative Negative: <1.5 ng/mL 08/20/2024 6:17 PM T [facility] Urine URINE / Unknown Collection / Unknown 08/20/2024 5:38 PM CDT 08/20/2024 5:47 PM CDT [facility] - 08/20/2024 6:17 PM CDT The Urine Toxicology Screening Panel does not screen for Propoxyphene, Meprobamate, Carisoprodol, Trazodone, [id number]-lxagwll medications and/or volatiles (Acetone, Isopropanol, Methanol or Ethylene Glycol). Ethanol, Salicylate, Acetaminophen, Tricyclic Antidepressants and several therapeutic drugs may be individually assayed in serum or plasma specimen. Toxicology testing by the [facility] is an aid to medical diagnosis and treatment of patients. No documented chain of custody was maintained. Results are intended to be used for clinical purposes only. Washington Dobson MD LAB - URINE CHEMISTRY ORDERABLES Final Result [facility] [address] [place] [address], [facility] [phone] * PT-INR [facility] (08/20/2024 5:13 PM CDT) PT 13.6 12.1 - 14.8 Seconds 08/20/2024 5:50 PM CDT [facility] INR 1.1 See Comment 08/20/2024 5:50 PM CDT [facility] Comment:The suggested therap eutic range for standard coumadin (warfarin) therapy is an INR of 2.0-3.0. For high-risk patients (Mechanical Mitral Valve Prosthesis, etc.), the suggested prophylactic therapeutic range is an INR of 2.5-3.5. Blood BLOOD SPECIMEN / Unknown Venipuncture / Unknown 08/20/2024 5:13 PM CDT 08/20/2024 5:20 PM CDT Washington Dobson MD LAB - COAGULATION ORDE RABLES Final Result [facility] [address] [place] [address], [place] [phone] * TYPE + SCREEN PANEL (08/20/2024 5:13 PM CDT) [facility] Antibody Screen NEG 6:06 PM CDT [facility] ABO Rh O POS 08/20/2024 6:06 PM CDT [facility] Blood Bank BLOOD SPECIMEN / Unknown Venipuncture / Unknown 08/20/2024 5:13 PM CDT 08/20/2024 5:23 PM CDT Washington Dobson MD LAB - BLOOD BANK ORDER STEPHANIE Final Result Performing Organization Address City/[facility]/ZIP Co de Phone Number [facility] [address] [place] [address], [facility] [phone] * (ABNORMAL) CBC W AUTO DIFFERENTIAL (08/20/2024 5:13 PM CDT) Pathologist [facility] WBC 11.5(H) 4.0 - 10.7 x10E9/L 08/20/2024 5:33 PM CDT [facility] RBC Count 4.02 3.90 - 5.20 x10E12/L 08/20/2024 5:33 PM CDT [facility] Hemoglobin 13.1 11.9 - 15.8 g/dL 08/20/2024 5:33 PM CDT [facility] Hematocrit 39.7 34.8 - 46.1 % 08/20/2024 5:33 PM [facility] MCV 98.8(H) 80.0 - 98.0 fL 08/20/2024 5:33 PM [facility] MCH 32.6 26.7 - 33.6 pg 08/20/2024 5:33 PM [facility] MCHC 33.0 31.7 - 36.3 g/dL 08/20/2024 5:33 PM [facility] RDW-CV 14.0 11.3 - 14.8 % 08/20/2024 5:33 PM [facility] Platelet Count 145(L) 150 - 420 x10E9/L 08/20/2024 5:33 PM [facility] MPV 11.2 7.8 - 11.4 fL 08/20/2024 5:33 PM [facility] Neutrophil % 84.2(H) 41.0 - 74.0 % 08/20/2024 5:33 PM [facility] Lymphocyte % 8.2(L) 17.0 - 47.0 % 08/20/2024 5:33 PM [facility] Monocyte % 6.6 3.0 - 11.0 % 08/20/2024 5:33 PM [facility] Eosinophil % 0.2 0.0 - 7.0 % 08/20/2024 5:33 PM [facility] Basophil % 0.4 0.0 - 1.6 % 08/20/2024 5:33 PM [facility] Immature Granulocytes % 0.4 0.0 - 1.0 % 08/20/2024 5:33 PM [facility] Neutrophil Absolute 9.71(H) 1.60 - 7.50 x10E9/L 08/20/2024 5:33 PM [facility] Lymphocyte Absolute 0.94(L) 1.00 - 4.40 x10E9/L 08/20/2024 5:33 PM [facility] Monocyte Absolute 0.76 0.15 - 1.00 x10E9/L 08/20/2024 5:33 PM [facility] Eosinophil Absolute 0.02 0.00 - 0.60 x10E9/L 08/20/2024 5:33 PM [facility] Basophil Absolute 0.05 0.00 - 0.13 x10E9/L 08/20/2024 5:33 PM [facility] Blood BLOOD SPECIMEN / Unknown Venipuncture / Unknown 08/20/2024 5:13 PM CDT 08/20/2024 5:20 PM CDT Washington Dobson MD LAB - HEMATOLOGY ORDER STEPHANIE Final Result [facility] [address] [place] [address], [facility] [phone] * (ABNORMAL) COMPREHENSIVE METABOLIC PANEL (08/20/2024 5:13 PM CDT) BUN 24 7 - 26 mg/dL 08/20/2024 5:54 PM [facility] Creatinine 0.72 0.56 - 0.96 mg/dL 08/20/2024 5:54 PM [facility] Sodium 140 136 - 145 mmol/L 08/20/2024 5:54 PM [facility] Potassium 3.7 3.5 - 4.5 mmol/L 08/20/2024 5:54 PM [facility] Chloride 111(H) 98 - 107 mmol/L 08/20/2024 5:54 PM [facility] CO2 25 22 - 29 mmol/L 08/20/2024 5:54 PM [facility] Glucose 186(H) 70 - 99 mg/dL 08/20/2024 5:54 PM [facility] Calcium 8.7 8.4 - 10.2 mg/dL 08/20/2024 5:54 PM [facility] Protein Total 6.4 6.0 - 8.3 g/dL 08/20/2024 5:54 PM [facility] Albumin 3.6 3.4 - 5.0 g/dL 08/20/2024 5:54 PM [facility] Bilirubin Total 0.2 0.2 - 1.2 mg/dL 08/20/2024 5:54 PM [facility] Alkaline Phosphatase 135 40 - 150 U/L 08/20/2024 5:54 PM CDT [facility] ALT 17 5 - 55 U/L 08/20/2024 5:54 PM T [facility] AST 19 5 - 34 U/L 08/20/2024 5:54 PM [facility] Anion Gap 4(L) 6 - 16 08/20/2024 5:54 PM T [facility] BUN/Creatinine Ratio 33(H) 7 - 23 08/20/2024 5:54 PM [facility] Osmolality Calculated 299(H) 275 - 295 mOsm/kg 08/20/2024 5:54 PM [facility] Albumin/Globulin Ratio 1.3 1.1 - 2.3 08/20/2024 5:54 PM [facility] eGFR by CKD-EPI 81(L) >=90 mL/min/1.7 3 m2 08/20/2024 5:54 PM T [facility] Blood BLOOD SPECIMEN / Unknown Venipuncture / Unknown 08/20/2024 5:13 PM CDT 08/20/2024 5:20 PM CDT us Washington Dobson MD LAB - CHEMISTRY ORDERA BLES Final Result [address] [address], [facility] [phone] * ALCOHOL ETHYL BLOOD (08/20/2024 5:13 PM CDT) Ethanol (mg/dL) <10 <10 mg/dL 5:54 PM T [facility] Ethanol Calculated (g/dL) <0.010 <=0.010 g/dL 08/20/2024 5:54 PM T [facility] Blood BLOOD SPECIMEN / Unknown Venipuncture / Unknown 08/20/2024 5:13 PM CDT 08/20/2024 5:20 PM CDT Narrative [facility] - 08/20/2024 5:54 PM CDT Ethanol Interp <10: None Detected. Depression of COOK FISH EGGS: >100 mg/dl Potentially Critical: >250 mg/dl Potentially [...] LAB - CHEMISTRY ORDERA BLES Final Result [facility] [place] [address], [facility] [phone] * CT CERVICAL SPINE WO CONTRAST (08/20/2024 4:56 PM CDT) Anatomical Region Laterality Modality Spine Computed Tomogra phy 08/20/2024 4:58 PM CDT Impressions 08/20/2024 7:33 PM CDT IMPRESSION: 1.No acute intracranial hemorrhage, midline shift, or significant mass effect. 2.No evidence of acute fracture in the cervical spine. Report dictated by Hailee Montana MD (residential service technician). I, Rose Farnsworth MD have personally reviewed and interpreted this examination/study. > Interpreting Provider: Rose Farnsworth MD on 08/20/2024 7:33 PM Narrative 08/20/2024 7:33 PM CDT PROCEDURE: CT HEAD WO CONTRAST, CT CERVICAL SPINE WO CONTRAST, DATE/TIME OF EXAM: 08/20/2024 4:56 PM, LOCATION [facility] INDICATION: W19.XXXA: Fall, initial encounter S61.219A: Finger laceration, initial encounter M79.604: Right leg pain EXAMINATION: 1.Computed tomography (CT) of the head without contrast 2.CT of the cervical spine without contrast ADDITIONAL CLINICAL INFORMATION: Ordering Provider Reason For Exam: ICP? Bleed? Fall (accession [id number]), fx? (accession [id number]) Technologist Note: None. Additional: None. TECHNIQUE: CT [...] CONTRAST,DATE/TIME OF EXAM: 08/20/2024 4:56 PM, LOCATION [facility] INDICATION: W19.XXXA: Fall, initial encounter S61.219A: Finger laceration, initial encounter M79.604: Right leg pain EXAMINATION: 1.Computed tomography (CT) of the head without contrast 2.CT of the cervical spine without contrast ADDITIONAL CLINICAL INFORMATION: Ordering Provider Reason For Exam: ICP? Bleed? Fall ([id number]), fx? (accession [id number]) Technologist Note: None. Additional: None. TECHNIQUE: CT [...] spine. Report dictated by Hailee Montana MD (residential service technician). Rose Stone MD have personally reviewed and [...] spine. Report dictated by Hailee Montana MD (residential service technician). Rose Stone MD have personally reviewed and interpreted this examination/study. > Interpreting Provider: Rose Farnsworth MD on 08/20/2024 7:33 PM Narrative 08/20/2024 7:33 PM CDT PROCEDURE: CT HEAD WO CONTRAST, CT CERVICAL SPINE WO CONTRAST, DATE/TIME OF EXAM: 08/20/2024 4:56 PM, LOCATION [facility] INDICATION: W19.XXXA: Fall, initial encounter S61.219A: Finger laceration, initial encounter M79.604: Right leg pain EXAMINATION: 1.Computed tomography (CT) of the head without contrast 2.CT of the cervical spine without contrast ADDITIONAL CLINICAL INFORMATION: Ordering Provider Reason For Exam: ICP? Bleed? Fall (accession [id number]), fx? (accession [id number]) Technologist Note: None. Additional: None. TECHNIQUE: CT [...] CONTRAST,DATE/TIME OF EXAM: 08/20/2024 4:56 PM, LOCATION [facility] INDICATION: W19.XXXA: Fall, initial encounter S61.219A: Finger laceration, initial encounter M79.604: Right leg pain EXAMINATION: 1.Computed tomography (CT) of the head without contrast 2.CT of the cervical spine without contrast ADDITIONAL CLINICAL INFORMATION: Ordering Provider Reason For Exam: ICP? Bleed? Fall ([id number]), fx? (accession [id number]) Technologist Note: None. Additional: None. TECHNIQUE: CT [...] spine. Report dictated by Hailee Montana MD (residential service technician). Rose Stone MD have personally reviewed and [...] distally. Report dictated by Hailee Montana MD (residential service technician). Faye Stone MD have personally reviewed and interpreted this examination/study. > Interpreting Provider: Faye Rome MD on 08/21/2024 9:36 AM Narrative 08/21/2024 9:36 AM CDT PROCEDURE: XR HAND RIGHT 3VW OR MORE, DATE/TIME OF EXAM: 08/20/2024 4:21 PM, LOCATION [facility] INDICATION: W19.XXXA: Fall, initial encounter ADDITIONAL [...] MORE, DATE/TIME OF EXAM: 54:21 PM, LOCATION [facility] INDICATION: W19.XXXA: Fall, initial encounter ADDITIONAL [...] distally. Report dictated by Hailee Montana MD (residential service technician). Faye Stone MD have personally reviewed and [...] body. Report dictated by Hailee Montana MD (residential service technician). Faye Stone MD have personally reviewed and interpreted this examination/study. > Interpreting Provider: Faye Rome MD on 08/21/2024 9:27 AM Narrative 08/21/2024 9:27 AM CDT PROCEDURE: XR ANKLE RIGHT 3VW OR MORE, DATE/TIME OF EXAM: 08/20/2024 4:21 PM, LOCATION [facility] INDICATION: W19.XXXA: Fall, initial encounter ADDITIONAL [...] MORE, DATE/TIME OF EXAM: 54:21 PM, LOCATION [facility] INDICATION: W19.XXXA: Fall, initial encounter ADDITIONAL [...] body. Report dictated by Hailee Montana MD (residential service technician). Faye Stone MD have personally reviewed and [...] wounds. Report dictated by Hailee Montana MD (residential service technician). Faye Stone MD have personally reviewed and interpreted this examination/study. > Interpreting Provider: Faye Rome MD on 08/21/2024 9:25 AM Narrative 08/21/2024 9:25 AM CDT PROCEDURE: XR TIBIA FIBULA RIGHT 2VW, DATE/TIME OF EXAM: 08/20/2024 4:21 PM, LOCATION [facility] INDICATION: W19.XXXA: Fall, initial encounter ADDITIONAL [...] 2VW, DATE/TIME OF EXAM: 54:21 PM, LOCATION [facility] INDICATION: W19.XXXA: Fall, initial encounter ADDITIONAL [...] wounds. Report dictated by Hailee Montana MD (residential service technician). Faye Stone MD have personally reviewed and [...] identified. Report dictated by Hailee Montana MD (residential service technician). Faye Stone MD have personally reviewed and interpreted this examination/study. > Interpreting Provider: Faye Rome MD on 08/21/2024 8:34 AM Narrative 08/21/2024 8:34 AM CDT PROCEDURE: XR KNEE RIGHT 3VW, DATE/TIME OF EXAM: 08/20/2024 4:20 PM, LOCATION [facility] INDICATION: W19.XXXA: Fall, initial encounter ADDITIONAL [...] DATE/TIME OF EXAM: 08/20/2024 4:20 PM, LOCATION [facility] INDICATION: W19.XXXA: Fall, initial encounter ADDITIONAL [...] identified. Report dictated by Hailee Montana MD (residential service technician). Faye Stone MD have personally reviewed and interpreted this examination/study. > Interpreting Provider: Faye Rome MD on 08/21/2024 8:34 AM us [place] Dobson MD DIAGNOSTIC IMAGING ORD ERABLES Final Result from Last 3 Months Insurance [facility] MEDICARE Advance Directives * Full Code (Latest Code Status on File) Date Activated Date Inactivated Comments 08/21/2024 12:00 AM 08/21/2024 5:46 PM Care Teams Machine Maintenance Supervisor Relationship Specialty Start Date End Date Tye Grajeda MD [address] [place], [place] [id number] PCP - General Family Medicine 08/20/24
--- OUTSIDE RECORDS SUMMARY | 2024-10-07 17:39 | XMS_ITS | Continuity of Care Document ---
Author Organization [facility] Address [address] [place] [address] Phone Care Team Providers Care Plate Shop Helper Name Role Phone [facility] [...] Diagnoses Date Provider Providers Copied on Encounter [facility], [address] [place] [address] [address], [place], [place], [id number], [place] tel:[phone] [facility] No Information May-0 5-201 0 [facility]. [address] [facility], [address], [place], [address], [place]. tel:[phone] Referring Provider: Luiz Luna, [address] [facility] [address], [place], [address]. tel:[phone] ellison Provider: Lidia Mauro, [address] [place], [address]. tel:[phone] [facility], [address] [place] [address] [address], [place], [place], [address], tel:[phone] [facility] No Information May-0 3-201 0 Krishnasamy Luiz. [address] [facility] [address], [place], [address], [place]. tel:[phone] Office/outpa tient Visit, Est [facility], [address], [place], [place], [address], [place] tel:[phone] [facility] No Information 9 Krishnasamy Luiz. [address] [facility] [address], [place], [address], [place]. tel:[phone] [facility], [address], [place], [place], [address], [place] tel:[phone] [facility] No Information 7 Optical Shop [facility]. [address] [facility], [address], [place], [place], [address], [place]. tel:[phone] Referring Provider: Dale Ivy, [address], [place], [address]. tel:[phone] g Provider: Lauren Key, [address] [place], [place], [facility]. tel:[phone] [facility], [address], [place], [place], [address], [place] tel:[phone] [facility] No Information 7 Chin Hunter. [address], [address], [address], [place]. tel:[phone] Family History Family Member Type Diagnosis Age At Onset No Information Payers Payer name Insurance type Covered democrat ID Authoriza tion(s) No Information Social History [...]
[2024-10-07] MEDS: SODIUM CHLORIDE 0.9% IV 1,000 ML 999 ML IV CONT ×2 (18:08→20:59)
[2024-10-07] MEDS: cefTRIAXone 1 GM in SODIUM CHLORIDE 0.9% IV 50 ML 100 ML IVPB (18:09)
[2024-10-07 18:25] VITALS: BP 126/65; PULSE 74; RESP 18; O2SAT 97
--- NOTE | 2024-10-07 18:29 | ED_ITS ---
HPI - General Adult General Chief complaint: Unspecified <JONE Villarreal Last Filed: 10/07/24 21:32> Stated complaint: diarrhea, cannot urinate, fever over weekend <JONE Villarreal Last Filed: 10/07/24 21:32> Time Seen by Provider: 10/07/24 17:04 <JONE Villarreal Last Filed: 10/07/24 21:32> Source: patient <JONE Villarreal Last Filed: 10/07/24 21:32> Mode of arrival: ambulatory <JONE Villarreal Last Filed: 10/07/24 21:32> Limitations: no limitations <JONE Villarreal Last Filed: 10/07/24 21:32> History of Present Illness HPI narrative: Patient is an 89 y/o female who presents to the ED with c/o ABD pain/bloating. Patient reports having pain/bloating diffusely throughout her abdomen over the past several days. Reports she a fever last Sunday, intermittent over the weekend. Was constipated, took dulcolax and is now having diarrhea today. Also reports difficulty urinating over the past couple of days, states she is only able to dribble out small amounts at a time. Denies history of retention. Denies nausea, vomiting, rectal bleeding, melena. <JONE Villarreal Last Filed: 10/07/24 21:32> Related Data Home medications: Home Medications ?Medication ?Instructions ?Recorded ?Confirmed ?Last Taken ?Type cefdinir 300 mg capsule 300 mg PO BID 08/27/24 08/27/24 Unknown History <JONE Villarreal Last Filed: 10/07/24 21:32> Allergies/adverse reactions: Allergies Allergy/AdvReac Type Severity Reaction Status Date / Time No Known Allergies Allergy Verified 10/07/24 14:42 <JONE Villarreal Last Filed: 10/07/24 21:32> Review of Systems 2 Review of Systems: All systems reviewed & are unremarkable except as noted in HPI. <María Elena De Leon PA-C - Last Filed: 10/07/24 21:32> All systems reviewed & are unremarkable except as noted in HPI and below < María Elena De Leon PA-C - Last Filed: 10/07/24 21:32> [facility] Past Medical History Medical History: Medical History Anxiety HTN (hypertension), benign <María Elena De Leon PA-C - Last Filed: 10/07/24 21:32> Family History Family History: Family History Mother Family history of diabetes mellitus in first degree relative <María Elena De Leon PA-C - Last Filed: 10/07/24 21:32> Social History Social History: Social History Social History: Smoking packs per day: 0 Smoking cigarettes per day: 0.0 Years smoked: 0 Smoking pack-years: 0.00 Smoking status: Never smoker Second hand tobacco smoke exposure: No Alcohol intake: never Substance use: never Substance use type: does not use Do You Feel Safe in your Home?: Yes Lack of Transportation: No Lack of Food: Never True Current Housing: I Have Housing Concerned About Future Housing: No Difficulty Paying Gas/Electric Bills: No Difficulty Paying for Meds: No Currently Unemployed: YES Education: Don't Know Difficulty w/ Childcare or Family Care: No Living arrangements: with family Occupation/Education: retired Gender identity (if verbalized by the patient): Female Sexual Orientation (if Verbalized by the Patient): Straight or Heterosexual <María Elena De Leon PA-C - Last Filed: 10/07/24 21:32> Exam 2 Narrative: GENERAL: Elderly but well appearing, well-nourished, non-toxic, in no acute distress. HEAD: Normocephalic, atraumatic. RESPIRATORY: Airway patent, respirations nonlabored. Clear to auscultation bilaterally, no rales, rhonchi, wheezing. CARDIOVASCULAR: Regular rate and rhythm without murmurs, rubs, or gallops. ABDOMINAL: Abdomen is slightly distended, but still soft, diffuse tenderness throughout lower abdomen and epigastric region. Normoactive BS. MUSCULOSKELETAL: Moves all extremities. No gross deformities. SKIN: Warm, dry, normal color. NEURO: A&O X3. Speech clear. PSYCHIATRIC: Appropriate mood and affect. Normal interaction. <María Elena De Leon PA-C - Last Filed: 10/07/24 21:32> Course RESEARCH METHODS INSTRUCTOR/PA Physician Supervision For this patient encounter, I reviewed the RESEARCH METHODS INSTRUCTOR or PA documentation, treatment plan, and medical decision making; and I had [id number] time with this patient. <Ramiro Hsieh MD - Last Filed: 10/07/24 22:42> Vital Signs Vital signs: Vital Signs Temperature 97.8 F 10/07/24 14:57 Pulse Rate 74 10/07/24 14:57 Respiratory Rate 16 10/07/24 14:57 Blood Pressure 129/57 L 10/07/24 14:57 Pulse Oximetry 97 10/07/24 14:57 Oxygen Delivery Room Air 10/07/24 14:57 Temperature 97.3 F L 10/07/24 22:00 Pulse Rate 65 10/07/24 22:00 Respiratory Rate 16 10/07/24 22:00 Blood Pressure 122/57 L 10/07/24 22:00 Pulse Oximetry 94 10/07/24 22:00 Oxygen Delivery Room Air 10/07/24 14:57 <María Elena De Leon PA-C - Last Filed: 10/07/24 21:32> Vital Signs Temperature 97.8 F 10/07/24 14:57 Pulse Rate 74 10/07/24 14:57 Respiratory Rate 16 10/07/24 14:57 Blood Pressure 129/57 L 10/07/24 14:57 Pulse Oximetry 97 10/07/24 14:57 Oxygen Delivery Room Air 10/07/24 14:57 Temperature 97.3 F L 10/07/24 22:00 Pulse Rate 65 10/07/24 22:00 Respiratory Rate 16 10/07/24 22:00 Blood Pressure 122/57 L 10/07/24 22:00 Pulse Oximetry 94 10/07/24 22:00 Oxygen Delivery Room Air 10/07/24 14:57 <Ramiro Hsieh MD - Last Filed: 10/07/24 22:42> Medical Decision Making MDM Narrative Medical decision making narrative: Patient presented to ED with abdominal pain, bloating, diarrhea, difficulty urinating. Vital signs are stable upon arrival. Patient is in no acute distress. Abdomen is somewhat distended on exam. Several areas of tenderness. Bladder scan was performed and only approximately 60 mL seen in bladder. Fluids were initiated. Laboratory studies with white blood cell count of 10.0. Slight anemia noted at 11.9. No recent records to compare to. Normocytic. Normal platelets. CMP with sodium 134, otherwise stable electrolytes. Stable kidney function. UA consistent with infection, positive nitrate, 2+ leuk esterase, 21-50 WBC, 4+ urine bacteria. Sent for culture. Given dose of Rocephin in the ED. CT scan of abdomen/pelvis was obtained and showing findings consistent with acute appendicitis. Will start Zosyn. Discussed lab and imaging findings with patient. Discussed case with Dr. Hernandez, general surgery, will consult. Keep NPO. Discussed case with Dr. Sagastume, hospitalist, accepted patient for admission. Advised to give another L of fluids, then start maintenance fluids. Patient and family are in agreement with plan and need for admission. <María Elena De Leon PA-C - Last Filed: 10/07/24 21:32> Medical Records Medical records reviewed: Yes I reviewed the external patient's medical records. <María Elena De Leon PA-C - Last Filed: 10/07/24 21:32> Vital Signs Vital Signs: Vital Signs Temperature 97.8 F 10/07/24 14:57 Pulse Rate 74 10/07/24 14:57 Respiratory Rate 16 10/07/24 14:57 Blood Pressure 129/57 L 10/07/24 14:57 Pulse Oximetry 97 10/07/24 14:57 Oxygen Delivery Room Air 10/07/24 14:57 Temperature 97.3 F L 10/07/24 22:00 Pulse Rate 65 10/07/24 22:00 Respiratory Rate 16 10/07/24 22:00 Blood Pressure 122/57 L 10/07/24 22:00 Pulse Oximetry 94 10/07/24 22:00 Oxygen Delivery Room Air 10/07/24 14:57 <María Elena De Leon PA-C - Last Filed: 10/07/24 21:32> Vital Signs Temperature 97.8 F 10/07/24 14:57 Pulse Rate 74 10/07/24 14:57 Respiratory Rate 16 10/07/24 14:57 Blood Pressure 129/57 L 10/07/24 14:57 Pulse Oximetry 97 10/07/24 14:57 Oxygen Delivery Room Air 10/07/24 14:57 Temperature 97.3 F L 10/07/24 22:00 Pulse Rate 65 10/07/24 22:00 Respiratory Rate 16 10/07/24 22:00 Blood Pressure 122/57 L 10/07/24 22:00 Pulse Oximetry 94 10/07/24 22:00 Oxygen Delivery Room Air 10/07/24 14:57 <Ramiro Hsieh MD - Last Filed: 10/07/24 22:42> Lab Data Lab results reviewed: Yes I reviewed the patient's lab results. <María Elena De Leon PA-C - Last Filed: 10/07/24 21:32> Result diagrams: 10/07/24 17:09 10/07/24 17:09 <María Elena De Leon PA-C - Last Filed: 10/07/24 21:32> Labs: Lab Results 10/07/24 10/07/24 Range/Units 17:09 17:10 WBC 10.0 (4.5-10.0) K/mm3 RBC 3.67 L (4.2-5.4) M/mm3 Hgb 11.9 L (12.0-15.0) g/dL Hct 36.3 L (37.0-47.0) % MCV 98.9 (80-100) fl MCH 32.4 (26-34) pg MCHC 32.8 (32-36) g/dl RDW 13.9 (11.5-14.5) % Plt Count 183 (150-375) k/mm3 MPV 10.0 (7.4-10.4) fl Immature Gran % (Auto) 0.7 H (0-0.5) % Neut % (Auto) 75.2 H (45.5-73.1) % Lymph % (Auto) 10.5 L (18.3-44.2) % [place] % (Auto) 12.4 H (2.6-8.5) % Eos % (Auto) 0.8 (0-4.4) % Baso % (Auto) 0.4 (0.2-1.2) % Lymph # (Auto) 1.05 (0.9-3.2) K/mm3 [place] # (Auto) 1.2 H (0.1-0.6) K/mm3 Eos # (Auto) 0.1 (0-0.3) K/mm3 Baso # (Auto) 0.0 (0.0-0.1) K/mm3 Abs Immat Gran (auto) 0.07 H (0.00-0.031) K/mm3 Absolute Neuts (auto) 7.5 H (1.3-6.7) K/mm3 Absolute Nucleated RBC 0.000 (0.0-0.012) K/mm3 Nucleated RBC % 0.0 (0.0-0.2) % Sodium 134 L (137-145) mmol/L Potassium 3.7 (3.4-5.0) mmol/L Chloride 104 (98-107) mmol/L Carbon Dioxide 23 (22-30) mmol/L Anion Gap 7 (4-12) mmol/L BUN 21 H (7-17) mg/dL Creatinine 0.63 L (0.7-1.0) mg/dL Estim Creat Clear Calc 50 ml/min Estimated GFR > 60 (59 - ) Glucose 121 H (65-110) mg/dL Calcium 8.8 (8.4-10.2) mg/dL Magnesium 2.3 (1.6-2.3) mg/dL Total Bilirubin 0.3 (0.2-1.3) mg/dL AST 37 H (14-36) U/L ALT 25 (6-35) U/L Alkaline Phosphatase 120 (38-126) U/L Total Protein 6.5 (6.3-8.2) g/dL Albumin 3.2 L (3.5-5.1) g/dL Lipase 36 (23-300) U/L Urine Color Yellow (Yellow) Urine Appearance Cloudy H (Clear) Urine pH 7.0 (5.0-9.0) Ur Specific [place] 1.017 (1.001-1.035) Urine Protein Trace (Negative) mg/dL Urine Glucose (UA) Negative (Negative) mg/dL Urine Ketones Negative (Negative) mg/dL Ur Blood (Man) Trace (Negative) Urine Nitrate Positive H (Negative) Urine Bilirubin Negative (Negative) Urine Urobilinogen 1.0 (<2.0) mg/dL Leukocyte Esterase Rfl 2+ H (Negative) TERESA/UL Urine RBC 0-2 (0-2) /hpf Urine WBC 21-50 H (0-3) /hpf Ur Squamous Epith Cells Occasional (Few) /hpf Urine Bacteria 4+ H /hpf Urine Casts 0-2 <María Elena De Leon PA-C - Last Filed: 10/07/24 21:32> Lab Results 10/07/24 10/07/24 Range/Units 17:09 17:10 WBC 10.0 (4.5-10.0) K/mm3 RBC 3.67 L (4.2-5.4) M/mm3 Hgb 11.9 L (12.0-15.0) g/dL Hct 36.3 L (37.0-47.0) % MCV 98.9 (80-100) fl MCH 32.4 (26-34) pg MCHC 32.8 (32-36) g/dl RDW 13.9 (11.5-14.5) % Plt Count 183 (150-375) k/mm3 MPV 10.0 (7.4-10.4) fl Immature Gran % (Auto) 0.7 H (0-0.5) % Neut % (Auto) 75.2 H (45.5-73.1) % Lymph % (Auto) 10.5 L (18.3-44.2) % [place] % (Auto) 12.4 H (2.6-8.5) % Eos % (Auto) 0.8 (0-4.4) % Baso % (Auto) 0.4 (0.2-1.2) % Lymph # (Auto) 1.05 (0.9-3.2) K/mm3 [place] # (Auto) 1.2 H (0.1-0.6) K/mm3 Eos # (Auto) 0.1 (0-0.3) K/mm3 Baso # (Auto) 0.0 (0.0-0.1) K/mm3 Abs Immat Gran (auto) 0.07 H (0.00-0.031) K/mm3 Absolute Neuts (auto) 7.5 H (1.3-6.7) K/mm3 Absolute Nucleated RBC 0.000 (0.0-0.012) K/mm3 Nucleated RBC % 0.0 (0.0-0.2) % Sodium 134 L (137-145) mmol/L Potassium 3.7 (3.4-5.0) mmol/L Chloride 104 (98-107) mmol/L Carbon Dioxide 23 (22-30) mmol/L Anion Gap 7 (4-12) mmol/L BUN 21 H (7-17) mg/dL Creatinine 0.63 L (0.7-1.0) mg/dL Estim Creat Clear Calc 50 ml/min Estimated GFR > 60 (59 - ) Glucose 121 H (65-110) mg/dL Calcium 8.8 (8.4-10.2) mg/dL Magnesium 2.3 (1.6-2.3) mg/dL Total Bilirubin 0.3 (0.2-1.3) mg/dL AST 37 H (14-36) U/L ALT 25 (6-35) U/L Alkaline Phosphatase 120 (38-126) U/L Total Protein 6.5 (6.3-8.2) g/dL Albumin 3.2 L (3.5-5.1) g/dL Lipase 36 (23-300) U/L Urine Color Yellow (Yellow) Urine Appearance Cloudy H (Clear) Urine pH 7.0 (5.0-9.0) Ur Specific [place] 1.017 (1.001-1.035) Urine Protein Trace (Negative) mg/dL Urine Glucose (UA) Negative (Negative) mg/dL Urine Ketones Negative (Negative) mg/dL Ur Blood (Man) Trace (Negative) Urine Nitrate Positive H (Negative) Urine Bilirubin Negative (Negative) Urine Urobilinogen 1.0 (<2.0) mg/dL Leukocyte Esterase Rfl 2+ H (Negative) TERESA/UL Urine RBC 0-2 (0-2) /hpf Urine WBC 21-50 H (0-3) /hpf Ur Squamous Epith Cells Occasional (Few) /hpf Urine Bacteria 4+ H /hpf Urine Casts 0-2 <Ramiro Hsieh MD - Last Filed: 10/07/24 22:42> Imaging Data Attestation: I personally reviewed and interpreted this imaging study as follows: < María Elena De Leon PA-C - Last Filed: 10/07/24 21:32> Radiologist's impression: ITS Impressions Abdomen/Pelvis CT 10/07/24 18:50 IMPRESSION: Acute appendicitis. These findings were discussed with María Elena Nur at 6:50 PM on 10/07/2024 <María Elena De Leon PA-C - Last Filed: 10/07/24 21:32> Discharge Plan Discharge Clinical Impression: Acute appendicitis Qualifiers: Acute appendicitis type: with localized peritonitis Appendicitis gangrene presence: without gangrene Appendicitis perforation presence: without perforation Appendicitis abscess presence: without abscess Qualified Code(s): K 35.30 - Acute appendicitis with localized peritonitis, without perforation or gangrene UTI (urinary tract infection) Qualifiers: Urinary tract infection type: acute cystitis Hematuria presence: without hematuria Qualified Code(s): N30.00 - Acute cystitis without hematuria <María Elena De Leon PA-C - Last Filed: 10/07/24 21:32> Patient Disposition: Still a Patient <María Elena De Leon PA-C - Last Filed: 10/07/24 21:32> Condition: Stable <JONE Villarreal Last Filed: 10/07/24 21:32>
[2024-10-07 19:30] VITALS: BP 127/95; PULSE 66; RESP 18; O2SAT 98
[2024-10-07] MEDS: PIPERACILLIN/TAZOBACTAM SOD 3.375 GM in SODIUM CHLORIDE 0.9% IV 50 ML 100 ML IVPB (19:52)
[2024-10-07 20:59] VITALS: BP 119/60; PULSE 66; RESP 18; TEMP 36.6; O2SAT 97
--- OUTSIDE RECORDS SUMMARY | 2024-10-07 21:46 | XMS_ITS | Continuity of Care Document ---
Author Organization [facility] Address [address] [place] [address] Phone Care Team Providers Care Community Services Manager Name Role Phone [facility] Unavailable [...] Diagnoses Date Provider Providers Copied on Encounter [facility], [address] [place] [address] [address], [place], [place], [address], [place] tel:[phone] [facility] No Information May-0 5-201 0 [facility]. [address] [facility], [address], [place], [address], [place]. tel:[phone] Referring Provider: Luiz Luna, [address] [facility] [address], [place], [address]. tel:[phone] ellison Provider: Lidia Mauro, [address] [place], [address]. tel:[phone] [facility], [address] [place] [address] [address], [place], [place], [address], tel:[phone] [facility] No Information May-0 3-201 0 Krishnasamy Luiz. [address] [facility] [address], [place], [address], [place]. tel:[phone] Office/outpa tient Visit, Est [facility], [address], [place], [place], [address], [place] tel:[phone] [facility] No Information 9 Krishnasamy Luiz. [address] [facility] [address], [place], [address], [place]. tel:[phone] [facility], [address], [place], [place], [address], [place] tel:[phone] [facility] No Information 7 Optical Shop [facility]. [address] [facility], [address], [place], [place], [address], [place]. tel:[phone] Referring Provider: Dale Ivy, [address], [place], [address]. tel:[phone] g Provider: Lauren Key, [address] [place], [place], [facility]. tel:[phone] [facility], [address], [place], [place], [address], [place] tel:[phone] [facility] No Information 7 Chin Hunter. [address], [place], [address], [place]. tel:[phone] Family History Family Member Type Diagnosis Age At Onset No Information Payers Payer name Insurance type Covered constitution party ID Authoriza tion(s) No Information Social History [...]
--- OUTSIDE RECORDS SUMMARY | 2024-10-07 21:46 | XMS_ITS | Clinical Summary ---
Author Organization [facility] [employer] Address [address] [place] [address] Care Team Providers Care Recruitment Director Name Role Phone Tye Grajeda MD Primary Care Provider [phone] Source Comments [facility] [employer],non-owned Affiliates and Associated Physician Practices is amultiple site organization consisting of ambulatory clinics and hospital sitesin [place], [place], [place] and [place]. This disclosure is being madepursuant to the Care Everywhere program and may not contain all information available regarding this patient. Last updated 17.[facility] [employer] Allergies No known active allergies Medications * [...] Description 10/02/2024 11:45 AM CDT Office Visit [facility] - General Surgery [address] [place] [address], [facility] [place] [address] Laceration of right lower extremity, initial encounter (Primary Dx) 10/02/2024 Travel 09/23/2024 Travel 09/19/2024 Telephone [facility] - General Surgery [address] [place] [address], [place] [address] Meghna Avalos, hair rooting machine operator/Incision Check 09/18/2024 11:45 AM CDT Office Visit [facility] - General Surgery [address] [place] [address], [place] [address] Open wound of right lower extremity, subsequent encounter (Primary Dx) 09/18/2024 Travel 09/11/2024 11:45 AM CDT Office Visit [facility] - General Surgery [address] [place] [address], [place] [address] Fall, initial encounter (Primary Dx); Laceration of right lower extremity, initial encounter; Right leg pain 09/11/2024 Telephone [facility] - General Surgery [address] [place] [address], [place] [address] Meghna Avalos, MIYA Coordination Of Care 09/11/2024 Travel 09/04/2024 12:00 PM CDT Clinical Support [facility] - General Surgery [address] [place] [address], [place] [address] Wound of right lower extremity, sequela 09/04/2024 Travel 08/28/2024 12:00 PM CDT Clinical Support [facility] - General Surgery [address] [facility], [facility] [place] [address] Laceration of right lower extremity, initial encounter 08/28/2024 Telephone [facility] - General Surgery [address] [facility], [place] [address] Meghna Avalos RN Coordination Of Care 08/28/2024 Travel 08/22/2024 Travel 08/20/2024 3:03 PM CDT - 08/21/2024 4:41 PM CDT Emergency [facility] [address] [place] [address] Washington Dobson MD Fite, Emily A, MD [...] [facility] - General Surgery [address] [facility], [place] [address] Health Maintenance Due Date Last Done Comments [...] CBC W/O DIFFERENTIAL (08/21/2024 7:33 AM CDT) [facility] WBC 10.7 4.0 - 10.7 x10E9/L 08/21/2024 7:53 AM [facility] RBC Count 3.98 3.90 - 5.20 x10E12/L 08/21/2024 7:53 AM [facility] Hemoglobin 13.2 11.9 - 15.8 g/dL 08/21/2024 7:53 AM [facility] Hematocrit 38.9 34.8 - 46.1 % 08/21/2024 7:53 AM [facility] MCV 97.7 80.0 - 98.0 fL 08/21/2024 7:53 AM [facility] MCH 33.2 26.7 - 33.6 pg 08/21/2024 7:53 AM [facility] MCHC 33.9 31.7 - 36.3 g/dL 08/21/2024 7:53 AM [facility] RDW-CV 14.5 11.3 - 14.8 % 08/21/2024 7:53 AM [facility] Platelet Count 147(L) 150 - 420 x10E9/L 08/21/2024 7:53 AM [facility] MPV 10.9 7.8 - 11.4 fL 08/21/2024 7:53 AM [facility] Blood BLOOD SPECIMEN / Unknown Venipuncture / Unknown 08/21/2024 7:33 AM CDT 08/21/2024 7:44 AM T us Jennifer Bautista MD LAB - HEMATOLOGY ORDERABLES Dominga madeline Result [facility] [address] [place] [address], [facility] [phone] * (ABNORMAL) BASIC METABOLIC PANEL (CALCIUM TOTAL) (08/21/2024 7:33 AM CDT) BUN 18 7 - 26 mg/dL 08/21/2024 10:49 AM [facility] Creatinine 0.62 0.56 - 0.96 mg/dL 08/21/2024 10:49 AM [facility] Sodium 140 136 - 145 mmol/L 08/21/2024 10:49 AM [facility] Potassium 3.8 3.5 - 4.5 mmol/L 08/21/2024 10:49 AM [facility] Chloride 111(H) 98 - 107 mmol/L 08/21/2024 10:49 AM [facility] CO2 23 22 - 29 mmol/L 08/21/2024 10:49 AM [facility] Glucose 120(H) 70 - 99 mg/dL 08/21/2024 10:49 AM [facility] Calcium 8.5 8.4 - 10.2 mg/dL 08/21/2024 10:49 AM [facility] Anion Gap 6 6 - 16 08/21/2024 10:49 AM [facility] BUN/Creatinine Ratio 29(H) 7 - 23 08/21/2024 10:49 AM [facility] Osmolality Calculated 293 275 - 295 mOsm/kg 08/21/2024 10:49 AM [facility] eGFR by CKD-EPI 86(L) >=90 mL/min/1.7 3 m2 08/21/2024 10:49 AM [facility] Blood BLOOD SPECIMEN / Unknown Venipuncture / Unknown 08/21/2024 7:33 AM CDT 08/21/2024 7:44 AM CDT Jennifer Bautista MD LAB - CHEMISTRY ORDERABLES Final Result Performing Organization Address [facility]/ZIP Co de Phone Number [address] [address], [facility] [phone] * PHOSPHORUS BLOOD (08/21/2024 7:33 AM CDT) Phosphorus 2.9 2.9 - 5.1 mg/dL 08/21/2024 10:49 AM CDT [facility] Blood BLOOD SPECIMEN / Unknown Venipuncture / Unknown 08/21/2024 7:33 AM CDT 08/21/2024 7:44 AM CDT Jennifer Bautista MD LAB - CHEMISTRY ORDERABLES Final Result Performing Organization Address [facility] Co de Phone Number [address] [address], [facility] [phone] * MAGNESIUM BLOOD (08/21/2024 7:33 AM CDT) Magnesium 2.1 1.6 - 2.6 mg/dL 08/21/2024 10:49 AM CDT [facility] Blood BLOOD SPECIMEN / Unknown Venipuncture / Unknown 08/21/2024 7:33 AM CDT 08/21/2024 7:44 AM CDT Jennifer Bautista MD LAB - CHEMISTRY ORDERABLES Final Result Performing Organization Address [facility] Co de Phone Number [address] [address], [facility] [phone] * CT Chest Abdomen Pelvis W Cont [...] > Dictated by Kostas Owusu MD, (residential sales associate). I, Sudarshan Ramesh MD have personally reviewed and interpreted this examination/study. > Interpreting Provider: Sudarshan Ramesh MD on 08/21/2024 2:31 AM Narrative 08/21/2024 2:31 AM CDT PROCEDURE: CT CHEST ABDOMEN PELVIS W CONT, DATE/TIME OF EXAM: 08/20/2024 8:58 PM, LOCATION [facility] INDICATION: W19.XXXA: Fall, initial encounter S61.219A: [...] CONT, DATE/TIME OF EXAM:08/20/2024 8:58 PM, LOCATION [facility] INDICATION: W19.XXXA: Fall, initial encounter S61.219A: [...] > Dictated by Kostas Owusu MD, (residential sales associate). Sudarshan Stone MD have personally reviewed and [...] Report dictated by Jose Angel Palacio MD, (Imaging Assistant). Rose Stone MD have personally reviewed and interpreted this examination/study. > Interpreting Provider: Rose Farnsworth MD on 08/20/2024 11:51 PM Narrative 08/20/2024 11:51 PM CDT PROCEDURE: CT THORACIC SPINE WO CONTRAST, CT LUMBAR SPINE WO CONTRAST, DATE/TIME OF EXAM: 08/20/2024 8:58 PM, LOCATION [facility] INDICATION: W19.XXXA: Fall, initial encounter S61.219A: [...] DATE/TIME OF EXAM: 08/20/2024 8:58 PM, LOCATION [facility] INDICATION: W19.XXXA: Fall, initial encounter S61.219A: [...] Report dictated by Jose Angel Palacio MD, (Imaging Assistant). Rose Stone MD have personally reviewed and [...] Report dictated by Jose Angel Palacio MD, (Imaging Assistant). Rose Stone MD have personally reviewed and interpreted this examination/study. > Interpreting Provider: Rose Farnsworth MD on 08/20/2024 11:51 PM Narrative 08/20/2024 11:51 PM CDT PROCEDURE: CT THORACIC SPINE WO CONTRAST, CT LUMBAR SPINE WO CONTRAST, DATE/TIME OF EXAM: 08/20/2024 8:58 PM, LOCATION [facility] INDICATION: W19.XXXA: Fall, initial encounter S61.219A: [...] DATE/TIME OF EXAM: 08/20/2024 8:58 PM, LOCATION [facility] INDICATION: W19.XXXA: Fall, initial encounter S61.219A: [...] Report dictated by Jose Angel Palacio MD, (Imaging Assistant). I, Rose Farnsworth MD have personally reviewed [...] Alternatives discussed: No treatment and delayed treatment [place] protocol: Procedure explained and questions answered to [...] O POS 08/20/2024 7:1 0 PM CDT [facility] Blood Bank BLOOD SPECIMEN / Unknown Venipuncture / Unknown 08/20/2024 6:24 PM CDT 08/20/2024 6:30 PM CDT Washington Dobson MD LAB - BLOOD BANK ORDER STEPHANIE Final Result [facility] [address] [place] [address], [facility] [phone] * (ABNORMAL) URINALYSIS REFLEX MICROSCOPIC REFLEX CULTURE (08/20/2024 5:38 PM CDT) Color UA Colorless(A) Yellow, Straw 08/20/2024 5:57 PM CDT [facility] Clarity UA Clear Clear 08/20/2024 5:57 PM CDT [facility] Glucose UA 2+(A) Normal 08/20/2024 5:57 PM CDT [facility] Bilirubin UA Negative Negative 08/20/2024 5:57 PM CDT [facility] Ketone UA Negative Negative 08/20/2024 5:57 PM CDT [facility] Specific [place] UA 1.008 1.005 - 1.030 08/20/2024 5:57 PM CDT [facility] Blood UA Negative Negative 08/20/2024 5:57 PM CDT [facility] pH UA 6.5 5.0 - 8.0 pH 08/20/2024 5:57 PM CDT [facility] Protein UA Negative Negative 08/20/2024 5:57 PM CDT [facility] Urobilinogen UA Normal Normal mg/dL 08/20/2024 5:57 PM CDT [facility] Nitrite UA Negative Negative 08/20/2024 5:57 PM T [facility] Leukocyte Esterase UA Negative Negative 08/20/2024 5:57 PM T [facility] Reflex Status Culture not indicated 08/20/2024 5:57 PM [facility] Urine URINE SPECIMEN OBTAINED BY CLEAN CATCH PROCEDURE / Unknown Collection / Unknown 08/20/2024 5:38 PM CDT 08/20/2024 5:47 PM CDT Washington Dobson MD LAB - URINALYSIS ORDER STEPHANIE Final Result Performing Organization Address [facility] Co de Phone Number [address] [address] [phone] * URINE DRUG SCREEN IMMUNOASSAY (08/20/2024 5:38 PM CDT) Pathologist [facility] Amphetamines Screen Urine Negative Negative: < 1000 ng/mL 08/20/2024 6:17 PM CDT [facility] Barbiturates Screen Urine Negative Negative: < 200 ng/mL 08/20/2024 6:17 PM [facility] Benzodiazepine Screen Urine Negative Negative: < 200 ng/mL 08/20/2024 6:17 PM T [facility] Opiates Urine Negative Negative: < 300 ng/mL 08/20/2024 6:17 PM CDT [facility] Cocaine Metabolites Urine Negative Negative: < 300 ng/mL 08/20/2024 6:17 PM CDT [facility] Phencyclidine Screen Urine Negative Negative: < 25 ng/ml 08/20/2024 6:17 PM CDT [facility] Cannabinoids Screen Urine Negative Negative: <50 ng/mL 08/20/2024 6:17 PM CDT [facility] Methadone Screen Urine Negative Negative: < 300 ng/mL 08/20/2024 6:17 PM CDT [facility] Fentanyl Screen Urine Negative Negative: <1.5 ng/mL 08/20/2024 6:17 PM T [facility] Urine URINE / Unknown Collection / Unknown 08/20/2024 5:38 PM CDT 08/20/2024 5:47 PM CDT [facility] - 08/20/2024 6:17 PM CDT The Urine Toxicology Screening Panel does not screen for Propoxyphene, Meprobamate, Carisoprodol, Trazodone, [id number] medications and/or volatiles (Acetone, Isopropanol, Methanol or Ethylene Glycol). Ethanol, Salicylate, Acetaminophen, Tricyclic Antidepressants and several therapeutic drugs may be individually assayed in serum or plasma specimen. Toxicology testing by the [facility] is an aid to medical diagnosis and treatment of patients. No documented chain of custody was maintained. Results are intended to be used for clinical purposes only. Washington Dobson MD LAB - URINE CHEMISTRY ORDERABLES Final Result [facility] [address] [place] [address], [facility] [phone] * PT-INR [facility] (08/20/2024 5:13 PM CDT) PT 13.6 12.1 - 14.8 Seconds 08/20/2024 5:50 PM CDT [facility] INR 1.1 See Comment 08/20/2024 5:50 PM CDT [facility] Comment:The suggested therap eutic range for standard coumadin (warfarin) therapy is an INR of 2.0-3.0. For high-risk patients (Mechanical Mitral Valve Prosthesis, etc.), the suggested prophylactic therapeutic range is an INR of 2.5-3.5. Blood BLOOD SPECIMEN / Unknown Venipuncture / Unknown 08/20/2024 5:13 PM CDT 08/20/2024 5:20 PM CDT Washington Dobson MD LAB - COAGULATION ORDE RABLES Final Result [facility] [address] [place] [address], [place] [phone] * TYPE + SCREEN PANEL (08/20/2024 5:13 PM CDT) [facility] Antibody Screen NEG 6:06 PM CDT [facility] ABO Rh O POS 08/20/2024 6:06 PM CDT [facility] Blood Bank BLOOD SPECIMEN / Unknown Venipuncture / Unknown 08/20/2024 5:13 PM CDT 08/20/2024 5:23 PM CDT Washington Dobson MD LAB - BLOOD BANK ORDER STEPHANIE Final Result Performing Organization Address City/[facility]/ZIP Co de Phone Number [facility] [address] [place] [address], [facility] [phone] * (ABNORMAL) CBC W AUTO DIFFERENTIAL (08/20/2024 5:13 PM CDT) Pathologist [facility] WBC 11.5(H) 4.0 - 10.7 x10E9/L 08/20/2024 5:33 PM CDT [facility] RBC Count 4.02 3.90 - 5.20 x10E12/L 08/20/2024 5:33 PM CDT [facility] Hemoglobin 13.1 11.9 - 15.8 g/dL 08/20/2024 5:33 PM CDT [facility] Hematocrit 39.7 34.8 - 46.1 % 08/20/2024 5:33 PM [facility] MCV 98.8(H) 80.0 - 98.0 fL 08/20/2024 5:33 PM [facility] MCH 32.6 26.7 - 33.6 pg 08/20/2024 5:33 PM [facility] MCHC 33.0 31.7 - 36.3 g/dL 08/20/2024 5:33 PM [facility] RDW-CV 14.0 11.3 - 14.8 % 08/20/2024 5:33 PM [facility] Platelet Count 145(L) 150 - 420 x10E9/L 08/20/2024 5:33 PM [facility] MPV 11.2 7.8 - 11.4 fL 08/20/2024 5:33 PM [facility] Neutrophil % 84.2(H) 41.0 - 74.0 % 08/20/2024 5:33 PM [facility] Lymphocyte % 8.2(L) 17.0 - 47.0 % 08/20/2024 5:33 PM [facility] Monocyte % 6.6 3.0 - 11.0 % 08/20/2024 5:33 PM [facility] Eosinophil % 0.2 0.0 - 7.0 % 08/20/2024 5:33 PM [facility] Basophil % 0.4 0.0 - 1.6 % 08/20/2024 5:33 PM [facility] Immature Granulocytes % 0.4 0.0 - 1.0 % 08/20/2024 5:33 PM [facility] Neutrophil Absolute 9.71(H) 1.60 - 7.50 x10E9/L 08/20/2024 5:33 PM [facility] Lymphocyte Absolute 0.94(L) 1.00 - 4.40 x10E9/L 08/20/2024 5:33 PM [facility] Monocyte Absolute 0.76 0.15 - 1.00 x10E9/L 08/20/2024 5:33 PM [facility] Eosinophil Absolute 0.02 0.00 - 0.60 x10E9/L 08/20/2024 5:33 PM [facility] Basophil Absolute 0.05 0.00 - 0.13 x10E9/L 08/20/2024 5:33 PM [facility] Blood BLOOD SPECIMEN / Unknown Venipuncture / Unknown 08/20/2024 5:13 PM CDT 08/20/2024 5:20 PM CDT Washington Dobson MD LAB - HEMATOLOGY ORDER STEPHANIE Final Result [facility] [address] [place] [address], [facility] [phone] * (ABNORMAL) COMPREHENSIVE METABOLIC PANEL (08/20/2024 5:13 PM CDT) BUN 24 7 - 26 mg/dL 08/20/2024 5:54 PM [facility] Creatinine 0.72 0.56 - 0.96 mg/dL 08/20/2024 5:54 PM [facility] Sodium 140 136 - 145 mmol/L 08/20/2024 5:54 PM [facility] Potassium 3.7 3.5 - 4.5 mmol/L 08/20/2024 5:54 PM [facility] Chloride 111(H) 98 - 107 mmol/L 08/20/2024 5:54 PM [facility] CO2 25 22 - 29 mmol/L 08/20/2024 5:54 PM [facility] Glucose 186(H) 70 - 99 mg/dL 08/20/2024 5:54 PM [facility] Calcium 8.7 8.4 - 10.2 mg/dL 08/20/2024 5:54 PM [facility] Protein Total 6.4 6.0 - 8.3 g/dL 08/20/2024 5:54 PM [facility] Albumin 3.6 3.4 - 5.0 g/dL 08/20/2024 5:54 PM [facility] Bilirubin Total 0.2 0.2 - 1.2 mg/dL 08/20/2024 5:54 PM [facility] Alkaline Phosphatase 135 40 - 150 U/L 08/20/2024 5:54 PM CDT [facility] ALT 17 5 - 55 U/L 08/20/2024 5:54 PM T [facility] AST 19 5 - 34 U/L 08/20/2024 5:54 PM [facility] Anion Gap 4(L) 6 - 16 08/20/2024 5:54 PM T [facility] BUN/Creatinine Ratio 33(H) 7 - 23 08/20/2024 5:54 PM [facility] Osmolality Calculated 299(H) 275 - 295 mOsm/kg 08/20/2024 5:54 PM [facility] Albumin/Globulin Ratio 1.3 1.1 - 2.3 08/20/2024 5:54 PM [facility] eGFR by CKD-EPI 81(L) >=90 mL/min/1.7 3 m2 08/20/2024 5:54 PM T [facility] Blood BLOOD SPECIMEN / Unknown Venipuncture / Unknown 08/20/2024 5:13 PM CDT 08/20/2024 5:20 PM CDT us Washington Dobson MD LAB - CHEMISTRY ORDERA BLES Final Result [address] [address], [facility] [phone] * ALCOHOL ETHYL BLOOD (08/20/2024 5:13 PM CDT) Ethanol (mg/dL) <10 <10 mg/dL 5:54 PM T [facility] Ethanol Calculated (g/dL) <0.010 <=0.010 g/dL 08/20/2024 5:54 PM T [facility] Blood BLOOD SPECIMEN / Unknown Venipuncture / Unknown 08/20/2024 5:13 PM CDT 08/20/2024 5:20 PM CDT Narrative [facility] - 08/20/2024 5:54 PM CDT Ethanol Interp <10: None Detected. Depression of MORTGAGE SALES MANAGER: >100 mg/dl Potentially Critical: >250 mg/dl Potentially [...] LAB - CHEMISTRY ORDERA BLES Final Result [facility] [place] [address], [facility] [phone] * CT CERVICAL SPINE WO CONTRAST (08/20/2024 4:56 PM CDT) Anatomical Region Laterality Modality Spine Computed Tomogra phy 08/20/2024 4:58 PM CDT Impressions 08/20/2024 7:33 PM CDT IMPRESSION: 1.No acute intracranial hemorrhage, midline shift, or significant mass effect. 2.No evidence of acute fracture in the cervical spine. Report dictated by Hailee Montana MD (residential sales associate). I, Rose Farnsworth MD have personally reviewed and interpreted this examination/study. > Interpreting Provider: Rose Farnsworth MD on 08/20/2024 7:33 PM Narrative 08/20/2024 7:33 PM CDT PROCEDURE: CT HEAD WO CONTRAST, CT CERVICAL SPINE WO CONTRAST, DATE/TIME OF EXAM: 08/20/2024 4:56 PM, LOCATION [facility] INDICATION: W19.XXXA: Fall, initial encounter S61.219A: Finger laceration, initial encounter M79.604: Right leg pain EXAMINATION: 1.Computed tomography (CT) of the head without contrast 2.CT of the cervical spine without contrast ADDITIONAL CLINICAL INFORMATION: Ordering Provider Reason For Exam: ICP? Bleed? Fall (accession [id number]), fx? (accession [id number]) Technologist Note: None. Additional: None. TECHNIQUE: CT [...] CONTRAST,DATE/TIME OF EXAM: 08/20/2024 4:56 PM, LOCATION [facility] INDICATION: W19.XXXA: Fall, initial encounter S61.219A: Finger laceration, initial encounter M79.604: Right leg pain EXAMINATION: 1.Computed tomography (CT) of the head without contrast 2.CT of the cervical spine without contrast ADDITIONAL CLINICAL INFORMATION: Ordering Provider Reason For Exam: ICP? Bleed? Fall ([id number]), fx? (accession [id number]) Technologist Note: None. Additional: None. TECHNIQUE: CT [...] Report dictated by Hailee Montana MD (residential sales associate). Rose Stone MD have personally reviewed and [...] Report dictated by Hailee Montana MD (residential sales associate). Rose Stone MD have personally reviewed and interpreted this examination/study. > Interpreting Provider: Rose Farnsworth MD on 08/20/2024 7:33 PM Narrative 08/20/2024 7:33 PM CDT PROCEDURE: CT HEAD WO CONTRAST, CT CERVICAL SPINE WO CONTRAST, DATE/TIME OF EXAM: 08/20/2024 4:56 PM, LOCATION [facility] INDICATION: W19.XXXA: Fall, initial encounter S61.219A: Finger laceration, initial encounter M79.604: Right leg pain EXAMINATION: 1.Computed tomography (CT) of the head without contrast 2.CT of the cervical spine without contrast ADDITIONAL CLINICAL INFORMATION: Ordering Provider Reason For Exam: ICP? Bleed? Fall (accession [id number]), fx? (accession [id number]) Technologist Note: None. Additional: None. TECHNIQUE: CT [...] CONTRAST,DATE/TIME OF EXAM: 08/20/2024 4:56 PM, LOCATION [facility] INDICATION: W19.XXXA: Fall, initial encounter S61.219A: Finger laceration, initial encounter M79.604: Right leg pain EXAMINATION: 1.Computed tomography (CT) of the head without contrast 2.CT of the cervical spine without contrast ADDITIONAL CLINICAL INFORMATION: Ordering Provider Reason For Exam: ICP? Bleed? Fall ([id number]), fx? (accession [id number]) Technologist Note: None. Additional: None. TECHNIQUE: CT [...] Report dictated by Hailee Montana MD (residential sales associate). Rose Stone MD have personally reviewed and [...] Report dictated by Hailee Montana MD (residential sales associate). Faye Stone MD have personally reviewed and interpreted this examination/study. > Interpreting Provider: Faye Rome MD on 08/21/2024 9:36 AM Narrative 08/21/2024 9:36 AM CDT PROCEDURE: XR HAND RIGHT 3VW OR MORE, DATE/TIME OF EXAM: 08/20/2024 4:21 PM, LOCATION [facility] INDICATION: W19.XXXA: Fall, initial encounter ADDITIONAL [...] MORE, DATE/TIME OF EXAM: 54:21 PM, LOCATION [facility] INDICATION: W19.XXXA: Fall, initial encounter ADDITIONAL [...] Report dictated by Hailee Montana MD (residential sales associate). Faye Stone MD have personally reviewed and interpreted this examination/study. > Interpreting Provider: Faye Rome MD on 08/21/2024 9:36 AM [place] Dobson MD DIAGNOSTIC IMAGING ORD ERABLES Final Result * XR Ankle Right 3Vw or More (08/20/2024 4:21 PM CDT) Anatomical Region Laterality Modality Lower Extremity Digital Radiogra phy 08/20/2024 5:31 PM CDT Impressions 08/21/2024 9:27 AM CDT IMPRESSION: No acute fracture, dislocation, or retained foreign body. Report dictated by Hailee Montana MD (residential sales associate). Faye Stone MD have personally reviewed and interpreted this examination/study. > Interpreting Provider: Faye Rome MD on 08/21/2024 9:27 AM Narrative 08/21/2024 9:27 AM CDT PROCEDURE: XR ANKLE RIGHT 3VW OR MORE, DATE/TIME OF EXAM: 08/20/2024 4:21 PM, LOCATION [facility] INDICATION: W19.XXXA: Fall, initial encounter ADDITIONAL [...] MORE, DATE/TIME OF EXAM: 54:21 PM, LOCATION [facility] INDICATION: W19.XXXA: Fall, initial encounter ADDITIONAL [...] Report dictated by Hailee Montana MD (residential sales associate). Faye Stone MD have personally reviewed and [...] Report dictated by Hailee Montana MD (residential sales associate). Faye Stone MD have personally reviewed and interpreted this examination/study. > Interpreting Provider: Faye Rome MD on 08/21/2024 9:25 AM Narrative 08/21/2024 9:25 AM CDT PROCEDURE: XR TIBIA FIBULA RIGHT 2VW, DATE/TIME OF EXAM: 08/20/2024 4:21 PM, LOCATION [facility] INDICATION: W19.XXXA: Fall, initial encounter ADDITIONAL [...] 2VW, DATE/TIME OF EXAM: 54:21 PM, LOCATION [facility] INDICATION: W19.XXXA: Fall, initial encounter ADDITIONAL [...] Report dictated by Hailee Montana MD (residential sales associate). Faye Stone MD have personally reviewed and [...] Report dictated by Hailee Montana MD (residential sales associate). Faye Stone MD have personally reviewed and interpreted this examination/study. > Interpreting Provider: Faye Rome MD on 08/21/2024 8:34 AM Narrative 08/21/2024 8:34 AM CDT PROCEDURE: XR KNEE RIGHT 3VW, DATE/TIME OF EXAM: 08/20/2024 4:20 PM, LOCATION [facility] INDICATION: W19.XXXA: Fall, initial encounter ADDITIONAL [...] DATE/TIME OF EXAM: 08/20/2024 4:20 PM, LOCATION [facility] INDICATION: W19.XXXA: Fall, initial encounter ADDITIONAL [...] Report dictated by Hailee Montana MD (residential sales associate). Faye Stone MD have personally reviewed and interpreted this examination/study. > Interpreting Provider: Faye Rome MD on 08/21/2024 8:34 AM us [place] Dobson MD DIAGNOSTIC IMAGING ORD ERABLES Final Result from Last 3 Months Insurance [facility] MEDICARE Advance Directives * Full Code (Latest Code Status on File) Date Activated Date Inactivated Comments 08/21/2024 12:00 AM 08/21/2024 5:46 PM Care Teams Recruitment Director Relationship Specialty Start Date End Date Tye Grajeda MD [address], [place] [id number] PCP - General Family Medicine 08/20/24
[2024-10-07 22:00] VITALS: BP 122/57; PULSE 65; RESP 16; TEMP 36.3; O2SAT 94
[2024-10-07 22:21] VITALS: BMI 25.7
[2024-10-07] MEDS: SODIUM CHLORIDE 0.9% IV 1,000 ML 100 ML IV CONT (22:59)
[2024-10-08] VITALS (10 sets, daily range): BP systolic 117–140; BP diastolic 53–72; PULSE 66–88; RESP 14–20; TEMP 35.8–37.6; O2SAT 92–100
[2024-10-08] MEDS: PIPERACILLN/TAZ 3.375GM/NS50ML 3.375 GM/50 ML BAG IVPB ×3 (02:21→14:14)
[2024-10-08 09:18] LABS: Hematocrit 35.0 % (37.0-47.0); Hemoglobin 11.4 g/dL (12.0-15.0); Mean Corpuscular HGB Conc 32.6 g/dl (32-36); Mean Corpuscular Hemoglobin 32.1 pg (26-34); Mean Corpuscular Volume 98.6 fl (80-100); Platelet Count Result 181 k/mm3 (150-375); Red Blood Count 3.55 M/mm3 (4.2-5.4); White Blood Count 10.0 K/mm3 (4.5-10.0)
--- NOTE | 2024-10-08 09:28 | P.CONGS_ITS ---
Assessment and Plan Assessment and plan (1) Acute appendicitis with localized peritonitis, without perforation or abscess: Code(s): K35.30 - Acute appendicitis with localized peritonitis, without perforation or gangrene Status: Acute Assessment and Plan: * CT showed evidence of acute appendicitis. No perforation or abscess. Her exam is consistent with acute appendicitis. We discussed both nonoperative treatment with IV antibiotics/monitoring versus proceeding with surgery. We discussed the risks of recurrence or treatment failure with the option of antibiotic therapy. I also discussed the details of a laparoscopic appendectomy, possible open, under general anesthesia that would be done by Dr. Hernandez. Description of the procedure, risks, benefits, alternatives, and expected recovery were discussed. She agrees to proceed with surgery. Continue IV Zosyn, NPO, IV fluids. She will be added onto the surgery schedule later today. (2) HTN (hypertension), benign: Code(s): I10 - Essential (primary) hypertension Status: Acute (3) UTI (urinary tract infection): Qualifiers: Hematuria presence: without hematuria Urinary tract infection type: a cute cystitis Qualified Code(s): N30.00 - Acute cystitis without hematuria Code(s): N39.0 - Urinary tract infection, site not specified Status: Acute Assessment and Plan: * Continue antibiotics per Hospitalist. (4) Wound of right lower extremity: Code(s): S81.801A - Unspecified open wound, right lower leg, initial encounter Status: Acute Assessment and Plan: * Stable right lower leg wound with no signs of an infection. This has been followed by home health and her primary care provider. Will resume local wound care while hospitalized. Plan I have discussed the patient's case and plan of care with Dr. Hernandez. History of Present Illness Consult details Consult date: 10/08/24 Reason for consult: other (Acute appendicitis) Requesting physician: Keely Sagastume DO Narrative: This is an 89-year-old female with a history of hypertension, who we have been asked to see in surgical consultation for acute appendicitis. She reports having an onset of lower abdominal pain 5 days ago. This was associated with bloating and she thought she may be constipated. Therefore she took laxatives [id number] and had multiple bowel movements without relief. She continued to have pain without any alleviating factors. The pain was constant, but not severe. She was able to sleep at night. She reports feeling feverish and having chills over the weekend off and on. She never took her temperature. No nausea or vomiting. Two days ago, she had difficulty urinating. She denies dysuria, hematuria, or frequency. She had a home health nurse coming to her home for wound care on the right lower extremity wound. The nurse recommended she go to the ED for evaluation. She came into the ED yesterday. Vital signs stable. Labs showed a normal white blood cell count with a left shift. UA suggests UTI. Urine culture pending. CT scan of the abdomen and pelvis showed acute appendicitis with no gross perforation or abscess. She was admitted and started on IV Zosyn. He also received a dose of IV ceftriaxone in the ED when found to have a UTI. She is currently NPO and on IV fluids. Her only previous abdominal surgery is a tubal ligation. [place] with [place] and is very active. She is completely independent in all ADLs. Review of Systems 2 Review of Systems: All systems reviewed & are unremarkable except as noted in HPI and below PMFSH Past Medical History Medical History Anxiety HTN (hypertension), benign Surgical History Surgical History History of tubal ligation Family History Family History Mother Family history of diabetes mellitus in first degree relative Social History Social History Social History: Smoking packs per day: 0 Smoking cigarettes per day: 0.0 Years smoked: 0 Smoking pack-years: 0.00 Smoking status: Never smoker Second hand tobacco smoke exposure: No Alcohol intake: never Substance use: never Substance use type: does not use Do You Feel Safe in your Home?: Yes Lack of Transportation: No Lack of Food: Never True Current Housing: I Have Housing Concerned About Future Housing: No Difficulty Paying Gas/Electric Bills: No Difficulty Paying for Meds: No Currently Unemployed: No Education: High School Diploma/GED Difficulty w/ Childcare or Family Care: No Living arrangements: with family Occupation/Education: retired Gender identity (if verbalized by the patient): Female Sexual Orientation (if Verbalized by the Patient): Straight or Heterosexual Spiritual care concerns: No Meds Home Medications and Allergies Home Medications ?Medication ?Instructions ?Recorded ?Confirmed ?Type buspirone 5 mg tablet See Rx Instructions .Route 01/25/24 10/07/24 Rx .COMPLEX #180 tabs amlodipine 5 mg tablet See Rx Instructions .Route 01/30/24 10/07/24 Rx .COMPLEX #90 tabs Allergies Allergy/AdvReac Type Severity Reaction Status Date / Time No Known Allergies Allergy Verified 10/07/24 14:42 Vital Signs Vital Signs - 24 hr 10/07/24 14:57 10/07/24 18:25 10/07/24 19:30 Temperature 97.8 F Pulse Rate 74 74 66 Respiratory Rate 16 18 18 Blood Pressure 129/57 L 126/65 127/95 H Pulse Oximetry 97 97 98 Oxygen Delivery Room Air 10/07/24 20:59 10/07/24 22:00 10/08/24 06:00 Temperature 97.8 F 97.3 F L 97.6 F Pulse Rate 66 65 77 Respiratory Rate 18 16 14 Blood Pressure 119/60 122/57 L 122/66 Pulse Oximetry 97 94 94 Oxygen Delivery Exam 2 Const: General: comfortable and no acute distress Nutritional Appearance: a verage body habitus Orientation/consciousness: patient oriented x3 HENMT: Head: normocephalic and atraumatic Ears: hearing grossly normal bilaterally Mouth: Yes moist mucous membranes Eyes: General: appearance normal, both eyes and all related structures P upils: Equal, round and reactive pupils present Neck: Neck: normal visual inspection and full ROM Resp: Effort & Inspection: no respiratory distress Auscultation: clear to auscultation bilaterally Cardio: Rate: regular rate Rhythm: regular rhythm Peripheral pulses: P eripheral pulses 2+ throughout GI: Inspection: distended and no visible herniation GI Palp: Yes Soft to palpation, Yes Tenderness to palpation present (GI) (Focal RLQ tenderness with guarding, mild suprapubic tenderness), Yes Guarding due to palpation present (GI) (Right lower quadrant), No Rebound tenderness present and Yes Other GI palpation findings present (No diffuse peritoneal signs) Auscultation: H ypoactive bowel sounds present Rectal Exam: deferred Skin: General skin exam: normal color Neuro: General: moves all extremities and no focal motor deficits Speech: n ormal speech Motor exam (neuro): 5/5 motor strength present throughout Extrem: Right upper extremity: normal to inspection Left upper extremity: n ormal to inspection Left lower extremity: normal to inspection Other: Right anterior lower leg with a superficial open wound about 8 x 5 cm with some areas of loose yellow slough and islands of granulating tissue. No purulence drainage or necrotic tissue. No surrounding erythema. Psych: Mental Status: mental status grossly normal Attitude: cooperative Insight: Good insight present (Psych) Judgement: Good judgement present (Psych) Results Labs 10/07/24 17:09 10/07/24 17:09 Labs: Abnormal lab results 10/07/24 10/07/24 Range/Units 17:09 17:10 RBC 3.67 L (4.2-5.4) M/mm3 Hgb 11.9 L (12.0-15.0) g/dL Hct 36.3 L (37.0-47.0) % Immature Gran % (Auto) 0.7 H (0-0.5) % Neut % (Auto) 75.2 H (45.5-73.1) % Lymph % (Auto) 10.5 L (18.3-44.2) % [place] % (Auto) 12.4 H (2.6-8.5) % [place] # (Auto) 1.2 H (0.1-0.6) K/mm3 Abs Immat Gran (auto) 0.07 H (0.00-0.031) K/mm3 Absolute Neuts (auto) 7.5 H (1.3-6.7) K/mm3 Sodium 134 L (137-145) mmol/L BUN 21 H (7-17) mg/dL Creatinine 0.63 L (0.7-1.0) mg/dL Glucose 121 H (65-110) mg/dL AST 37 H (14-36) U/L Albumin 3.2 L (3.5-5.1) g/dL Urine Appearance Cloudy H (Clear) Urine Nitrate Positive H (Negative) Leukocyte Esterase Rfl 2+ H (Negative) TERESA/UL Urine WBC 21-50 H (0-3) /hpf Urine Bacteria 4+ H /hpf Diabetes panel 10/07/24 Range/Units 17:09 Sodium 134 L (137-145) mmol/L Potassium 3.7 (3.4-5.0) mmol/L Chloride 104 (98-107) mmol/L Carbon Dioxide 23 (22-30) mmol/L BUN 21 H (7-17) mg/dL Creatinine 0.63 L (0.7-1.0) mg/dL Glucose 121 H (65-110) mg/dL Calcium 8.8 (8.4-10.2) mg/dL AST 37 H (14-36) U/L ALT 25 (6-35) U/L Alkaline Phosphatase 120 (38-126) U/L Total Protein 6.5 (6.3-8.2) g/dL Albumin 3.2 L (3.5-5.1) g/dL Calcium panel 10/07/24 Range/Units 17:09 Calcium 8.8 (8.4-10.2) mg/dL Albumin 3.2 L (3.5-5.1) g/dL Pituitary panel 10/07/24 Range/Units 17:09 Sodium 134 L (137-145) mmol/L Potassium 3.7 (3.4-5.0) mmol/L Chloride 104 (98-107) mmol/L Carbon Dioxide 23 (22-30) mmol/L BUN 21 H (7-17) mg/dL Creatinine 0.63 L (0.7-1.0) mg/dL Glucose 121 H (65-110) mg/dL Calcium 8.8 (8.4-10.2) mg/dL Adrenal panel 10/07/24 Range/Units 17:09 Sodium 134 L (137-145) mmol/L Potassium 3.7 (3.4-5.0) mmol/L Chloride 104 (98-107) mmol/L Carbon Dioxide 23 (22-30) mmol/L BUN 21 H (7-17) mg/dL Creatinine 0.63 L (0.7-1.0) mg/dL Glucose 121 H (65-110) mg/dL Calcium 8.8 (8.4-10.2) mg/dL Total Bilirubin 0.3 (0.2-1.3) mg/dL AST 37 H (14-36) U/L ALT 25 (6-35) U/L Alkaline Phosphatase 120 (38-126) U/L Total Protein 6.5 (6.3-8.2) g/dL Albumin 3.2 L (3.5-5.1) g/dL All other labs normal. Imaging Additional studies: ITS Impressions Abdomen/Pelvis CT 10/07/24 18:50 IMPRESSION: Acute appendicitis. These findings were discussed with María Elena Nur at 6:50 PM on 10/07/2024
[2024-10-08 09:32] LABS: Anion Gap 5 mmol/L (4-12); Blood Urea Nitrogen 11 mg/dL (7-17); Calcium 8.3 mg/dL (8.4-10.2); Carbon Dioxide 22 mmol/L (22-30); Chloride 110 mmol/L (98-107); Estimated CRCL calculation 52 ml/min; Estimated Glomerular Filt Rate > 60; Glucose 105 mg/dL (65-110); Potassium 3.8 mmol/L (3.4-5.0); Sodium 137 mmol/L (137-145)
[2024-10-08] MEDS: SODIUM CHLORIDE 0.9% IV 1,000 ML 100 ML IV CONT (12:22)
[2024-10-08] MEDS: ACETAMINOPHEN 500 MG TABLET 1000 MG PO (13:15)
[2024-10-08] MEDS: KETOROLAC 15 MG/ML VIAL (*BKC) IV PUSH (13:15)
--- NOTE | 2024-10-08 13:16 | SUR.PREOP ---
Patient Left Forearm 20g IV upon arrival to surgery was red, painful, and swollen. IV was immediately removed and new IV was placed. Extravasation assessment was put in the chart and Floor RN was made aware.
--- NOTE | 2024-10-08 13:29 | WPDHPUPDATE1 ---
History and Physical Update Update Date/Time: 10/08/24 13:29 History and Physical has been reviewed, including an updated exam of the patient. There are NO changes in the patient's condition. Risks, benefits, and alternatives have been discussed and questions answered. Patient agrees to proceed with procedure.
[2024-10-08] MEDS: LACTATED RINGERS 1,000 ML 30 ML IV CONT (14:04)
--- NOTE | 2024-10-08 14:37 | P.HP_ITS ---
H&P: HPI History of Present Illness Date/Time: 10/08/24 14:37 Chief Complaint: RLQ abdominal pain Narrative: Arlene Elliott is an 89 year old female, hx HTN, prior hysterectomy, fall with injury to right leg in July, who presented with right lower quadrant abdominal pain, and urinary frequency, and was admitted for acute appendicitis and a UTI. She had a fall in July complicated by a small laceration to her right leg, and has been [facility] at [facility] trauma clinic for wound care. She has had 5 days of RLQ pain, also reports urinary frequency, but only had dysuria 1st time today. She reports a temperature of 101? at home. She was constipated, took Dulcolax and then had diarrhea. Last BM this morning. She came to the ER for evaluation In the ER her white count was normal. CT abd pelvis showed acute appenditicis. UA cloudy, + nitrates, 21-50 WBC's, 4+ bacteria On Zosyn. She was hemodynamically stable, temp 99.4 Surgery consulted and was taken to the OR Otherwise she notes RLE edema recently, having difficulty putting on a shoe. Checking Dopplers. Starting Lovenox for DVT prophylaxis per surgery Review of Systems Review of Systems: + fevers, RLQ abdominal pain PMFSH Past Medical History Medical History (Updated 10/08/24 @ 18:52 by Shanon Cabrera APRN) Anxiety HTN (hypertension), benign Surgical History Surgical History (Updated 10/08/24 @ 18:55 by Shanon Cabrera APRN) H/O: hysterectomy Family History Family History Mother Family history of diabetes mellitus in first degree relative Social History Social History Social History: Smoking packs per day: 0 Smoking cigarettes per day: 0.0 Years smoked: 0 Smoking pack-years: 0.00 Smoking status: Never smoker Second hand tobacco smoke exposure: No Alcohol intake: never Substance use: never Substance use type: does not use Do You Feel Safe in your Home?: Yes Lack of Transportation: No Lack of Food: Never True Current Housing: I Have Housing Concerned About Future Housing: No Difficulty Paying Gas/Electric Bills: No Difficulty Paying for Meds: No Currently Unemployed: No Education: High School Diploma/GED Difficulty w/ Childcare or Family Care: No Living arrangements: with family Occupation/Education: retired Gender identity (if verbalized by the patient): Female Sexual Orientation (if Verbalized by the Patient): Straight or Heterosexual Spiritual care concerns: No Meds Home Medications and Allergies Home Medications ?Medication ?Instructions ?Recorded ?Confirmed ?Type buspirone 5 mg tablet See Rx Instructions .Route 01/25/24 10/07/24 Rx .COMPLEX #180 tabs amlodipine 5 mg tablet See Rx Instructions .Route 01/30/24 10/07/24 Rx .COMPLEX #90 tabs Allergies Allergy/AdvReac Type Severity Reaction Status Date / Time No Known Allergies Allergy Verified 10/08/24 13:07 Vital Signs Vital Signs - 24 hr 10/07/24 14:57 10/07/24 18:25 10/07/24 19:30 Temperature 97.8 F Pulse Rate 74 74 66 Respiratory Rate 16 18 18 Blood Pressure 129/57 L 126/65 127/95 H Pulse Oximetry 97 97 98 Oxygen Delivery Room Air 10/07/24 20:59 10/07/24 22:00 10/08/24 06:00 Temperature 97.8 F 97.3 F L 97.6 F Pulse Rate 66 65 77 Respiratory Rate 18 16 14 Blood Pressure 119/60 122/57 L 122/66 Pulse Oximetry 97 94 94 Oxygen Delivery 10/08/24 08:00 10/08/24 14:02 Temperature 99.4 F Pulse Rate 66 Respiratory Rate Blood Pressure 140/64 Pulse Oximetry 96 Oxygen Delivery Room Air Room Air Exam Narrative: General - Awake and alert. No acute distress Eyes - PERRLA, EOM intact ENT - No thrush, No erythema Neck - No noticeable or palpable swelling Lymph Nodes - No lymphadenopathy Cardiovascular - RRR no m/r/g, no JVD Lungs: Clear to auscultation, No wheezing, use of accessory muscles, no crackles Skin - Skin warm and dry, no wounds or rashes Abdomen - No signficant bowel sounds, abdomen mildly distended and nontender Extremities - Mild LE edema, cyanosis or clubbing Musculoskeletal - 5/5 strength, normal range of motion, no swollen or erythematous joints. Neurological ? Alert and oriented x 3, CN 2-12 grossly intact. Psych: Normal mood and affect H&P: Results Labs Labs: Short CBC 10/07/24 10/08/24 Range/Units 17:09 09:09 WBC 10.0 10.0 (4.5-10.0) K/mm3 Hgb 11.9 L 11.4 L (12.0-15.0) g/dL Hct 36.3 L 35.0 L (37.0-47.0) % Plt Count 183 181 (150-375) k/mm3 BMP 10/07/24 10/08/24 17:09 09:09 Sodium 134 L 137 Potassium 3.7 3.8 Chloride 104 110 H Carbon Dioxide 23 22 BUN 21 H 11 D Creatinine 0.63 L 0.61 L Glucose 121 H 105 Calcium 8.8 8.3 L Liver Function 10/07/24 Range/Units 17:09 Total Bilirubin 0.3 (0.2-1.3) mg/dL AST 37 H (14-36) U/L ALT 25 (6-35) U/L Alkaline Phosphatase 120 (38-126) U/L Albumin 3.2 L (3.5-5.1) g/dL Urine 10/07/24 Range/Units 17:10 Urine Color Yellow (Yellow) Urine Appearance Cloudy H (Clear) Urine pH 7.0 (5.0-9.0) Ur Specific [place] 1.017 (1.001-1.035) Urine Protein Trace (Negative) mg/dL Urine Glucose (UA) Negative (Negative) mg/dL Assessment and Plan Assessment and plan (1) HTN (hypertension), benign: Code(s): I10 - Essential (primary) hypertension Status: Acute Assessment and Plan: HTN Home meds: Amlodipine 5mg daily Blood pressure controlled off meds --Hold for now (2) Anxiety: Code(s): F41.9 - Anxiety disorder, unspecified Status: Acute Assessment and Plan: Anxiety Busipirone 5mg BID --Conitinue (3) Acute appendicitis: Qualifiers: Acute appendicitis type: with localized peritonitis Appendicitis abscess presence: without abscess Appendicitis gangrene presence: without gangrene Appendicitis perforation presence: without perforation Qualified Code(s): K35.30 - Acute appendicitis with localized peritonitis, without perforation or gangrene Code(s): K35.80 - Unspecified acute appendicitis Status: Acute Assessment and Plan: Acute appendicitis Low grade temp. Normal WBC & AG. CT abd pelvis showed acute appendicitis s/p OR today with surgery Pain control: Vicodin, Morphine 2-4mg prn Full liquid diet per surgery recs Start miralax for bowel regimen (4) Edema of right lower extremity: Code(s): R60.0 - Localized edema Status: Acute Assessment and Plan: LE Edema RLE Laceration Following with [facility] wound his and there were couple not able worse theLow grade temp. Normal WBC & AG. CT abd pelvis showed acute appendicitis s/p OR today the hours (5) UTI (urinary tract infection): Qualifiers: Hematuria presence: without hematuria Urinary tract infection type: acute cystitis Qualified Code(s): N30.00 - Acute cystitis without hematuria Code(s): N39.0 - Urinary tract infection, site not specified Status: Acute Assessment and Plan: UTI Urinary frequency and dysuria with positive UA UA cloudy, + nitrates, 21-50 WBC's, 4+ bacteria On Zosyn --On zosyn for appendicitis --Follow culture (6) Anemia: Code(s): D64.9 - Anemia, unspecified Status: Acute Assessment and Plan: Anemia H&H 11.4/35 --Ferritin, Iron panel, B12, follow CBC Quality VTE Prophylaxis VTE prophylaxis: mechanical ordered Hospitalist MIPS Advance Care Plan I have confirmed that the patient's Advanced Care Plan is present, code status is documented, or surrogate decision maker is listed in patient medical record.: Yes Medication Reconciliation I have utilized all available resources to obtain, update and review the patients current medications (includes all prescriptions, OTC, herbals, cannabis, and nutritional supplements).: Yes
--- NOTE | 2024-10-08 14:47 | P.PNAN_ITS ---
Anes - Initial Pre Proc Eval Procedure: Operation Date: 10/08/24 14:00 Proposed Procedures p Laparoscopic Appendectomy - Juan C Hernandez DO Date/Time: 10/08/24 14:47 Surgeon: Keely Sagastume DO Pre Op Diagnosis: acute appendicitis, UTI Patient Data Age: 89 Gender: F Height: 1.68 m Weight: 72.2 kg Last Vital Signs Temp 99.4 F 10/08/24 14:02 Pulse 66 10/08/24 14:02 Resp 14 10/08/24 06:00 BP 140/64 10/08/24 14:02 Pulse Ox 96 10/08/24 14:02 O2 Del Method Room Air 10/08/24 14:02 Allergies Allergy/AdvReac Type Severity Reaction Status Date / Time No Known Allergies Allergy Verified 10/08/24 13:07 Home Medications ?Medication ?Instructions ?Recorded ?Confirmed ?Type buspirone 5 mg tablet See Rx Instructions .Route 01/25/24 10/07/24 Rx .COMPLEX #180 tabs amlodipine 5 mg tablet See Rx Instructions .Route 01/30/24 10/07/24 Rx .COMPLEX #90 tabs Laboratory Tests 10/07/24 10/07/24 10/08/24 17:09 17:10 09:09 WBC 10.0 K/mm3 10.0 K/mm3 (4.5-10.0) (4.5-10.0) RBC 3.67 L M/mm3 3.55 L M/mm3 (4.2-5.4) (4.2-5.4) Hgb 11.9 L g/dL 11.4 L g/dL (12.0-15.0) (12.0-15.0) Hct 36.3 L % 35.0 L % (37.0-47.0) (37.0-47.0) MCV 98.9 fl 98.6 fl (80-100) (80-100) MCH 32.4 pg 32.1 pg (26-34) (26-34) MCHC 32.8 g/dl 32.6 g/dl (32-36) (32-36) RDW 13.9 % 13.8 % (11.5-14.5) (11.5-14.5) Plt Count 183 k/mm3 181 k/mm3 (150-375) (150-375) MPV 10.0 fl 9.7 fl (7.4-10.4) (7.4-10.4) Immature Gran % (Auto) 0.7 H % (0-0.5) Neut % (Auto) 75.2 H % (45.5-73.1) Lymph % (Auto) 10.5 L % (18.3-44.2) [place] % (Auto) 12.4 H % (2.6-8.5) Eos % (Auto) 0.8 % (0-4.4) Baso % (Auto) 0.4 % (0.2-1.2) Lymph # (Auto) 1.05 K/mm3 (0.9-3.2) [place] # (Auto) 1.2 H K/mm3 (0.1-0.6) Eos # (Auto) 0.1 K/mm3 (0-0.3) Baso # (Auto) 0.0 K/mm3 (0.0-0.1) Abs Immat Gran (auto) 0.07 H K/mm3 (0.00-0.031) Absolute Neuts (auto) 7.5 H K/mm3 (1.3-6.7) Absolute Nucleated RBC 0.000 K/mm3 (0.0-0.012) Nucleated RBC % 0.0 % (0.0-0.2) Sodium 134 L mmol/L 137 mmol/L (137-145) (137-145) Potassium 3.7 mmol/L 3.8 mmol/L (3.4-5.0) (3.4-5.0) Chloride 104 mmol/L 110 H mmol/L (98-107) (98-107) Carbon Dioxide 23 mmol/L 22 mmol/L (22-30) (22-30) Anion Gap 7 mmol/L 5 mmol/L (4-12) (4-12) BUN 21 H mg/dL 11 D mg/dL (7-17) (7-17) Creatinine 0.63 L mg/dL 0.61 L mg/dL (0.7-1.0) (0.7-1.0) Estim Creat Clear Calc 50 ml/min 52 ml/min Estimated GFR > 60 > 60 (59 - ) (59 - ) Glucose 121 H mg/dL 105 mg/dL (65-110) (65-110) Calcium 8.8 mg/dL 8.3 L mg/dL (8.4-10.2) (8.4-10.2) Magnesium 2.3 mg/dL (1.6-2.3) Total Bilirubin 0.3 mg/dL (0.2-1.3) AST 37 H U/L (14-36) ALT 25 U/L (6-35) Alkaline Phosphatase 120 U/L (38-126) Total Protein 6.5 g/dL (6.3-8.2) Albumin 3.2 L g/dL (3.5-5.1) Lipase 36 U/L (23-300) Urine Color Yellow (Yellow) Urine Appearance Cloudy H (Clear) Urine pH 7.0 (5.0-9.0) Ur Specific [place] 1.017 (1.001-1.035) Urine Protein Trace mg/dL (Negative) Urine Glucose (UA) Negative mg/dL (Negative) Urine Ketones Negative mg/dL (Negative) Ur Blood (Man) Trace (Negative) Urine Nitrate Positive H (Negative) Urine Bilirubin Negative (Negative) Urine Urobilinogen 1.0 mg/dL (<2.0) Leukocyte Esterase Rfl 2+ H TERESA/UL (Negative) Urine RBC 0-2 /hpf (0-2) Urine WBC 21-50 H /hpf (0-3) Ur Squamous Epith Cells Occasional /hpf (Few) Urine Bacteria 4+ H /hpf Urine Casts 0-2 Patient hx anesthesia problems: none Family hx anesthesia problems: none Results Review: All pre-operative results and documents have been reviewed as part of the pre- operative evaluation. [facility] Past Medical History Medical History Anxiety HTN (hypertension), benign Surgical History Surgical History History of tubal ligation Family History Family History Mother Family history of diabetes mellitus in first degree relative Social History Social History Social History: Smoking packs per day: 0 Smoking cigarettes per day: 0.0 Years smoked: 0 Smoking pack-years: 0.00 Smoking status: Never smoker Second hand tobacco smoke exposure: No Alcohol intake: never Substance use: never Substance use type: does not use Do You Feel Safe in your Home?: Yes Lack of Transportation: No Lack of Food: Never True Current Housing: I Have Housing Concerned About Future Housing: No Difficulty Paying Gas/Electric Bills: No Difficulty Paying for Meds: No Currently Unemployed: No Education: High School Diploma/GED Difficulty w/ Childcare or Family Care: No Living arrangements: with family Occupation/Education: retired Gender identity (if verbalized by the patient): Female Sexual Orientation (if Verbalized by the Patient): Straight or Heterosexual Spiritual care concerns: No Anes - Eval Final PreProcedure Day of Procedure 10/08/24 14:47 Patient weight: normal Heart: regular rate and rhythm Lungs: clear to auscultation Airway: Mallampati scale class II Neurological: alert and oriented Last oral intake: >/= 8 hours ASA classification: III Emergent: no Anesthetic plan: proceed Anesthesia type and monitoring: general ETT and standard monitoring Results Review: All pre-operative results and documents have been reviewed as part of the pre- operative evaluation. Informed Consent: The patient's anesthetic plan and its attendant risks and benefits were discussed with the patient/family/POA. Questions were solicited and answers provided to the satisfaction of the patient/family/POA.
--- NOTE | 2024-10-08 14:54 | S_PTH ---
PATIENT: Arlene Elliott LOC: [id number] U#:[id number] AGE/SX: 89/F ROOM: 313 RE10/07/[address]: Shanon Cabrera APRN : 1935 BED: 01 DIS: 10/10/2024 SPEC #: [id number] RECD: 10/09/24 08:17 STATUS: CEE REAlex #: [id number] LEIDA: 10/08/24 14:[address]: Juan C Hernandez DEPT: [facility] Surgical RECD BY: Johanny Silverio ENTERED: 10/09/24 08:17 SP TYPE: Surgical OTHR DR: MD Keely Gaviria DO Evelyne Thomas, APRN Tissues: A - Appendix Procedures: Hematoxylin and Eosin Stain Gross and Microscopic Level 3
--- NOTE | 2024-10-08 15:20 | P.OP_ITS ---
Procedure Note - Detailed Date of Procedure 10/08/24 Pre-op Diagnosis acute appendicitis, UTI Post-op Diagnosis Other (Acute perforated appendicitis with abscess) Procedure Performed 1. Laparoscopic appendectomy 2. Laparoscopic drainage of intra-abdominal abscess Surgeon Juan C Hernandez DO Anesthesia General and Local (0.5% bupivicaine with epinephrine) Indications This is an 89-year-old woman who presented to the emergency department overnight with right lower quadrant abdominal pain for 5 days. She had also been experiencing fevers. She had never had any symptoms like this in the past. CT in the emergency department showed evidence of acute appendicitis. She was admitted and placed on broad-spectrum IV antibiotics. Discussions were made with the patient about treatment options and decision was made to proceed with laparoscopic appendectomy, possible open. Findings Laparoscopic appendectomy was performed. The appendix appeared to be perforated and there was an abscess between the omentum and the right lower quadrant abdominal wall where the appendix was adherent and perforated. The abscess was drained using a laparoscopic suction marine equipment test engineer. There was an area of omentum adherent to the appendix as well as a loop of the ileum. Once these adhesions were taken down I was able to identify the base of the appendix. The base of the appendix appeared healthy and viable. The appendix was removed and sent to the lab for pathology. The abdomen was then irrigated with 1 L of sterile saline. No other purulence fluid was identified. Description of Procedure Procedure as well as risks, benefits, and alternatives were explained to the patient. The patient agreed to proceed. Written consent was obtained and placed in chart prior to procedure. The patient was brought back to surgical suite. She was placed supine on operating table. Time-out was done to confirm the patient and procedure. The patient was then intubated by the Anesthesia Department. Her abdomen was prepped and draped in sterile fashion using chlorhexidine prep. A 5 mm incision was made just to the left of the patient's umbilicus and a 5 mm Optiview trocar was advanced through the abdominal layers under direct visualization. Once inside the peritoneal cavity, carbon dioxide insufflation was used to create a pneumoperitoneum. The camera was inserted and the abdomen was inspected. No immediate abnormalities were identified. The patient was then placed in slight Trendelenburg position and rotated to the left. A 5 mm incision was made in the suprapubic region in midline and a 5 mm trocar was inserted under direct visualization. A 12 mm incision was made in the left lower quadrant and a 12 mm trocar was inserted under direct visualization. The right lower quadrant was carefully inspected. There was omentum adherent to the right lower quadrant abdominal wall and once this was carefully dissected free from the abdominal wall in abscess cavity was entered and about 10-20 mL of purulence fluid was drained. A suction marine equipment test engineer was used to suction all of the purulence fluid from within the abscess cavity. The omentum was then carefully dissected off of the appendix and ileum and reflected cephalad out of the right lower quadrant. The cecum was identified and then this was traced back to the appendix. The appendix was identified and grasped at the mesoappendix and lifted anteriorly. Careful blunt dissection was carried out at the base of the appendix through the mesoappendix using a [place] grasper. An Endo-ERIKA 45 mm blue load stapler was then advanced across the base of the appendix and clamped and fired. A white reload was then clamped across the mesoappendix and fired. This freed up our appendix completely. It was then placed in an EndoCatch bag and removed through the left lower quadrant port. The staple lines were then inspected. Hemostasis appeared adequate and the staple lines appeared secure. The area was then irrigated with sterile saline. The pelvis was then carefully inspected and irrigated with sterile saline as well and the remainder of the abdomen was carefully inspected. The patient was then flattened out in bed. One final inspection was made around the abdominal cavity and no other abnormalities were seen. The left lower quadrant port was removed and a Praveen-Lui cone was used to approximate the fascia with an 0 Vicryl simple interrupted suture. The remaining ports were then removed under direct visualization. The camera was removed and the pneumoperitoneum was released. 0.5% bupivacaine with epinephrine was infiltrated locally around each of the incisions. The skin of the incisions was then approximated using 4-0 Monocryl subcuticular suture and Exofin glue was applied on top. The patient was then awakened from anesthesia, extubated, and transferred to Recovery. Estimated Blood Loss 20 Urine Output 300 Pathology Yes (Appendix) Complications No immediate complications Condition Stable Disposition Floor [facility] Billing Surgery - Charge Forward: Surgery Billing
--- NOTE | 2024-10-08 19:40 | PC.NURSE ---
On 10/08/24, the PARKING ANALYST, Sabrina Brown, provided care and completed [facility] documentation on this patient. I have reviewed the PARKING ANALYST's documentation and agree with the findings.
[2024-10-08] MEDS: HYDROcodone/acetaminophen (*CRX) 5-325 MG TABLET 1 TAB PO (22:06)
[2024-10-08] MEDS: PIPERACILLIN/TAZOBACTAM SOD 3.375 GM in SODIUM CHLORIDE 0.9% IV 50 ML 100 ML IVPB (22:07)
[2024-10-09 01:36] VITALS: BP 116/58; PULSE 77; RESP 14; TEMP 36.3; O2SAT 92
[2024-10-09] MEDS: PIPERACILLIN/TAZOBACTAM SOD 3.375 GM in SODIUM CHLORIDE 0.9% IV 50 ML 100 ML IVPB ×4 (01:39→20:56)
[2024-10-09 05:27] VITALS: BP 118/56; PULSE 64; RESP 16; TEMP 36.3; O2SAT 93
[2024-10-09 07:11] LABS: Hematocrit 35.0 % (37.0-47.0); Hemoglobin 11.0 g/dL (12.0-15.0); Immature Granulocyte Percent A 1.0 % (0-0.5); Lymphocytes Absolute Auto 0.99 K/mm3 (0.9-3.2); Mean Corpuscular HGB Conc 31.4 g/dl (32-36); Mean Corpuscular Hemoglobin 31.9 pg (26-34); Mean Corpuscular Volume 101.4 fl (80-100); Nucleated Red Blood Cells Absolute Auto 0.000 K/mm3 (0.0-0.012); Nucleated Red Blood Cells Perc 0.0 % (0.0-0.2); Platelet Count Result 188 k/mm3 (150-375); Red Blood Count 3.45 M/mm3 (4.2-5.4); White Blood Count 11.4 K/mm3 (4.5-10.0)
[2024-10-09 07:19] LABS: Alanine Aminotransferase 20 U/L (6-35); Albumin Level 2.8 g/dL (3.5-5.1); Alkaline Phosphatase 95 U/L (38-126); Anion Gap 6 mmol/L (4-12); Aspartate Amino Transferase 23 U/L (14-36); Bilirubin,Total 0.8 mg/dL (0.2-1.3); Blood Urea Nitrogen 11 mg/dL (7-17); Calcium 8.3 mg/dL (8.4-10.2); Carbon Dioxide 24 mmol/L (22-30); Chloride 107 mmol/L (98-107); Estimated CRCL calculation 41 ml/min; Estimated Glomerular Filt Rate > 60; Glucose 110 mg/dL (65-110); Potassium 3.5 mmol/L (3.4-5.0); Sodium 137 mmol/L (137-145); Total Protein 5.7 g/dL (6.3-8.2)
--- NOTE | 2024-10-09 07:35 | WPDANESPN ---
Anes - Prog Note Post-Op Date/Time: 10/09/24 07:35 Cardiovascular status: normal Respiratory status: normal Airway patency: baseline Mental status: baseline Post-Op hydration status: normal Vital Signs: Last Vital Signs Temp 36.3 C L 10/09/24 05:27 Pulse 64 10/09/24 05:27 Resp 16 10/09/24 05:27 BP 118/56 L 10/09/24 05:27 Pulse Ox 93 10/09/24 05:27 O2 Del Method Room Air 10/08/24 16:01 O2 Flow Rate 8 10/08/24 15:26 Pain Score (VAS): 2 I/O: Intake & Output 10/08/24 10/08/24 10/09/24 15:59 23:59 07:59 Intake Total 1100 390 250 Output Total 300 Balance 800 390 250 Laboratory Tests 10/09/24 06:37 10/09/24 06:37 10/08/24 10/09/24 09:09 06:37 WBC 10.0 11.4 H RBC 3.55 L 3.45 L Hgb 11.4 L 11.0 L Hct 35.0 L 35.0 L MCV 98.6 101.4 H MCH 32.1 31.9 MCHC 32.6 31.4 L RDW 13.8 14.1 Plt Count 181 188 MPV 9.7 10.1 Immature Gran % (Auto) 1.0 H Neut % (Auto) 79.5 H Lymph % (Auto) 8.7 L [place] % (Auto) 9.4 H Eos % (Auto) 1.0 Baso % (Auto) 0.4 Lymph # (Auto) 0.99 [place] # (Auto) 1.1 H Eos # (Auto) 0.1 Baso # (Auto) 0.1 Abs Immat Gran (auto) 0.11 H Absolute Neuts (auto) 9.0 H Absolute Nucleated RBC 0.000 Nucleated RBC % 0.0 Sodium 137 137 Potassium 3.8 3.5 Chloride 110 H 107 Carbon Dioxide 22 24 Anion Gap 5 6 BUN 11 D 11 Creatinine 0.61 L 0.78 Estim Creat Clear Calc 52 41 Estimated GFR > 60 > 60 Glucose 105 110 Calcium 8.3 L 8.3 L Total Bilirubin 0.8 AST 23 ALT 20 Alkaline Phosphatase 95 Total Protein 5.7 L Albumin 2.8 L Post-procedural complaints: none Patient Feedback: Patient satisfied with anesthetic care.
--- NOTE | 2024-10-09 09:42 | P.PNIM_ITS ---
Progress Note: A&P Assessment and Plan (1) HTN (hypertension), benign: Code(s): I10 - Essential (primary) hypertension Status: Acute Assessment and Plan: HTN Home meds: Amlodipine 5mg daily Blood pressure controlled off meds --Hold for now (2) Anxiety: Code(s): F41.9 - Anxiety disorder, unspecified Status: Acute Assessment and Plan: Anxiety Busipirone 5mg BID --Conitinue (3) Acute appendicitis: Qualifiers: Acute appendicitis type: with localized peritonitis Appendicitis abscess presence: without abscess Appendicitis gangrene presence: without gangrene Appendicitis perforation presence: without perforation Qualified Code(s): K35.30 - Acute appendicitis with localized peritonitis, without perforation or gangrene Code(s): K35.80 - Unspecified acute appendicitis Status: Acute Assessment and Plan: Acute appendicitis Afebrile. VSS. WBC 11.4 post op, normal AG. CT abd pelvis showed acute appendicitis s/p OR today with surgery Pain control: Vicodin, Morphine 2-4mg prn Diet advanced to regular per surgery recs Started miralax for bowel regimen (4) Edema of right lower extremity: Code(s): R60.0 - Localized edema Status: Acute Assessment and Plan: LE Edema RLE Laceration Following with [facility] wound his and there were couple not able worse theLow grade temp. Normal WBC & AG. CT abd pelvis showed acute appendicitis s/p OR today --Venous dopplers negative for DVT --Continue local wound care (5) UTI (urinary tract infection): Qualifiers: Hematuria presence: without hematuria Urinary tract infection type: acute cystitis Qualified Code(s): N30.00 - Acute cystitis without hematuria Code(s): N39.0 - Urinary tract infection, site not specified Status: Acute Assessment and Plan: UTI Urinary frequency and dysuria with positive UA UA cloudy, + nitrates, 21-50 WBC's, 4+ bacteria On Zosyn --On zosyn for appendicitis --Follow culture (6) Anemia: Code(s): D64.9 - Anemia, unspecified Status: Acute Assessment and Plan: Anemia H&H 11.4/35 --Ferritin, Iron panel, B12, follow CBC Time Spent With Patient Time: 55 minutes Subjective Date/time seen: 10/09/24 09:42 Interval history: VS & labs stable. Potassium 3.5. Diet advanced to regular Dopplers negative for thrombus Passing gas. Mild abdominal pain but overall well controlled. Took 1 dose of vicodin today Review of Systems Review of Systems: + fevers, RLQ abdominal pain Exam Narrative: General - Awake and alert. No acute distress Eyes - PERRLA, EOM intact ENT - No thrush, No erythema Neck - No noticeable or palpable swelling Lymph Nodes - No lymphadenopathy Cardiovascular - RRR no m/r/g, no JVD Lungs: Clear to auscultation, No wheezing, use of accessory muscles, no crackles Skin - Skin warm and dry, no wounds or rashes Abdomen - No signficant bowel sounds, abdomen mildly distended and nontender. 3 surgical site incisions with glue, normal post op appearance Extremities - Mild LE edema, cyanosis or clubbing Musculoskeletal - 5/5 strength, normal range of motion, no swollen or erythematous joints. Neurological ? Alert and oriented x 3, CN 2-12 grossly intact. Psych: Normal mood and affect Objective Data Vital Signs Vital Signs: Vital Signs - 24 hr 10/08/24 14:02 10/08/24 15:26 10/08/24 15:40 Temperature 99.4 F 98.2 F Pulse Rate 66 77 69 Respiratory Rate 16 18 Blood Pressure 140/64 134/69 123/60 Pulse Oximetry 96 100 94 Oxygen Delivery Room Air Simple Face Mask Room Air Oxygen Flow Rate 8 10/08/24 15:55 10/08/24 16:01 10/08/24 16:05 Temperature 96.5 F L Pulse Rate 69 72 66 Respiratory Rate 20 20 16 Blood Pressure 122/62 120/57 L 117/55 L Pulse Oximetry 95 94 94 Oxygen Delivery Room Air Room Air Oxygen Flow Rate 10/08/24 16:20 10/08/24 16:50 10/08/24 21:50 Temperature 96.8 F L 98.8 F 99.6 F Pulse Rate 66 71 88 Respiratory Rate 16 16 14 Blood Pressure 128/53 L 117/63 135/72 Pulse Oximetry 98 99 92 Oxygen Delivery Oxygen Flow Rate 10/09/24 01:36 10/09/24 05:27 Temperature 97.4 F L 97.3 F L Pulse Rate 77 64 Respiratory Rate 14 16 Blood Pressure 116/58 L 118/56 L Pulse Oximetry 92 93 Oxygen Delivery Oxygen Flow Rate Intake/Output Intake/Output: Intake & Output 10/06/24 10/07/24 10/08/24 10/09/24 23:59 23:59 23:59 23:59 Intake Total 2100 1540 250 Output Total 300 Balance 2100 1240 250 Meds/Results Medications: Active Medications Generic Name Dose Route Start Last Admin Trade Name Freq PRN Reason Stop Dose Admin Acetaminophen 650 mg 10/07/24 20:37 Acetaminophen 325 Mg Tablet PO Q4H PRN Mild Pain (1-3) or Fever Hydrocodone Bitart/Acetaminophen 1 tab 10/08/24 16:05 10/08/24 22:06 Hydrocodone/Acetaminophen (*Crx) 5-325 Mg Tablet PO 1 tab Q4H PRN Administration Pain Rated 4-6 Hydrocodone Bitart/Acetaminophen 1 tab 10/08/24 16:05 Hydrocodone/Acetaminophen (*Crx) 10-325 Mg Tablet PO Q4H PRN Pain Rated 7-10 Dextrose 12.5 gm 10/07/24 20:37 Dextrose 50% 25 Gm/50 Ml Syringe IV PUSH PRN PRN Hypoglycemia Protocol Enoxaparin Sodium 40 mg 10/09/24 09:00 Enoxaparin 40 Mg/0.4 Ml Syringe SUB-Q DAILY TAYA Glucagon 1 mg 10/07/24 20:37 Glucagon For Inj 1 Mg Vial IM PRN PRN Hypoglycemia Protocol Glucose 15 gm 10/07/24 20:37 Glucose Oral Gel 15 Gm Of Glucse In 37.5 Gm Tube PO PRN PRN Hypoglycemia Protocol Dextrose 1,000 mls @ 100 mls/hr 10/07/24 20:37 Dextrose 5% 1,000 Ml IVPB PRN PRN Hypoglycemia Protocol Piperacillin Sod/Tazobactam 50 mls @ 100 mls/hr 10/08/24 20:00 10/09/24 02:11 Sod 3.375 gm/ Sodium Chloride IVPB Infused Q6H TAYA Infusion Morphine Sulfate 2 mg 10/08/24 16:05 Morphine Sulfate (*Crx) 2 Mg/Ml Inj IV PUSH Q2H PRN Breakthrough Pain Rated 4-6 or NPO Morphine Sulfate 4 mg 10/08/24 16:05 Morphine Sulfate (*Crx) 4 Mg/Ml Inj IV PUSH Q2H PRN Breakthrough Pain Rated 7-10 or NPO Naloxone HCl 0.1 mg 10/08/24 16:05 Naloxone Hcl 0.4 Mg/Ml Vial IV PUSH Q2M PRN Opiate Reversal Ondansetron HCl 4 mg 10/07/24 20:37 Ondansetron Inj 4 Mg/2 Ml Vial IV PUSH Q4H PRN Nausea Polyethylene Glycol 17 gm 10/09/24 09:00 Polyethylene Glycol 3350 17 Gm Powd.Pack PO QAM [facility] Radiology Results: ITS Impressions Abdomen/Pelvis CT 10/07/24 18:50 IMPRESSION: Acute appendicitis. These findings were discussed with María Elena Nur at 6:50 PM on 10/07/2024 Venous Doppler Study 10/08/24 22:31 IMPRESSION: Negative bilateral lower extremity venous US. No deep vein thrombosis. Labs Labs: Laboratory Results - last 24 hr 10/09/24 06:37 WBC 11.4 H RBC 3.45 L Hgb 11.0 L Hct 35.0 L MCV 101.4 H MCH 31.9 MCHC 31.4 L RDW 14.1 Plt Count 188 MPV 10.1 Immature Gran % (Auto) 1.0 H Neut % (Auto) 79.5 H Lymph % (Auto) 8.7 L [place] % (Auto) 9.4 H Eos % (Auto) 1.0 Baso % (Auto) 0.4 Lymph # (Auto) 0.99 [place] # (Auto) 1.1 H Eos # (Auto) 0.1 Baso # (Auto) 0.1 Abs Immat Gran (auto) 0.11 H Absolute Neuts (auto) 9.0 H Absolute Nucleated RBC 0.000 Nucleated RBC % 0.0 Sodium 137 Potassium 3.5 Chloride 107 Carbon Dioxide 24 Anion Gap 6 BUN 11 Creatinine 0.78 Estim Creat Clear Calc 41 Estimated GFR > 60 Glucose 110 Calcium 8.3 L Total Bilirubin 0.8 AST 23 ALT 20 Alkaline Phosphatase 95 Total Protein 5.7 L Albumin 2.8 L Quality VTE Prophylaxis VTE prophylaxis: mechanical ordered Hospitalist MIPS Advance Care Plan I have confirmed that the patient's Advanced Care Plan is present, code status is documented, or surrogate decision maker is listed in patient medical record.: Yes Medication Reconciliation I have utilized all available resources to obtain, update and review the p atients current medications (includes all prescriptions, OTC, herbals, cannabis, and nutritional supplements).: Yes
--- NOTE | 2024-10-09 09:58 | PM.PNGS ---
Progress Note: A&P Assessment and Plan (1) Appendicitis with abscess: Code(s): K35.33 - Acute appendicitis with perforation, localized peritonitis, and gangrene, with abscess Status: Acute Assessment and Plan: POD1 s/p laparoscopic appendectomy with drainage of intra-abdominal abscess. Patient is tolerating a regular diet and ambulating well. Abdomen still appears distended with tenderness and guarding to right side. Tolerating pain with oral medication. WBC 11.4, likely postop reaction. Continue IV Zosyn. Consider discharge within the next few days with outpatient office follow up with Dr. Hernandez in 2 weeks. Subjective Subjective Date/Time Seen: 10/09/24 09:58 Post Op day: 1 Patient reports: no new complaints, feels better, still having pain, tolerating a regular diet, no flatus and no bowel movement Interval history: Patient is doing well today. Tolerating regular diet without nausea or vomiting. Ambulating around the room. No bowel movement or flatus yet. She notes tenderness to right side of abdomen, likely postop pain. Tolerating pain with oral narcatics. WBC 11.4. Exam GI: Inspection: distended GI Palp: Yes Tenderness to palpation present (GI) and Yes Guarding due to palpation present (GI) Other: Incisions are clean and dry with no evidence of infection, dehiscence, or purulence. No surrounding redness. Tenderness to palpation with guarding to right side of abdomen. Likely d/t appendiceal perforation with abscess. Abdomen still distended. Objective Data Vital Signs Vital Signs: Vital Signs - 24 hr 10/08/24 14:02 10/08/24 15:26 10/08/24 15:40 Temperature 99.4 F 98.2 F Pulse Rate 66 77 69 Respiratory Rate 16 18 Blood Pressure 140/64 134/69 123/60 Pulse Oximetry 96 100 94 Oxygen Delivery Room Air Simple Face Mask Room Air Oxygen Flow Rate 8 10/08/24 15:55 10/08/24 16:01 10/08/24 16:05 Temperature 96.5 F L Pulse Rate 69 72 66 Respiratory Rate 20 20 16 Blood Pressure 122/62 120/57 L 117/55 L Pulse Oximetry 95 94 94 Oxygen Delivery Room Air Room Air Oxygen Flow Rate 10/08/24 16:20 10/08/24 16:50 10/08/24 21:50 Temperature 96.8 F L 98.8 F 99.6 F Pulse Rate 66 71 88 Respiratory Rate 16 16 14 Blood Pressure 128/53 L 117/63 135/72 Pulse Oximetry 98 99 92 Oxygen Delivery Oxygen Flow Rate 10/09/24 01:36 10/09/24 05:27 Temperature 97.4 F L 97.3 F L Pulse Rate 77 64 Respiratory Rate 14 16 Blood Pressure 116/58 L 118/56 L Pulse Oximetry 92 93 Oxygen Delivery Oxygen Flow Rate Intake/Output Intake/Output: Intake & Output 10/06/24 10/07/24 10/08/24 10/09/24 23:59 23:59 23:59 23:59 Intake Total 2100 1540 250 Output Total 300 Balance 2100 1240 250 Meds/Results Medications: Active Medications Generic Name Dose Route Start Last Admin Trade Name Freq PRN Reason Stop Dose Admin Acetaminophen 650 mg 10/07/24 20:37 Acetaminophen 325 Mg Tablet PO Q4H PRN Mild Pain (1-3) or Fever Hydrocodone Bitart/Acetaminophen 1 tab 10/08/24 16:05 10/08/24 22:06 Hydrocodone/Acetaminophen (*Crx) 5-325 Mg Tablet PO 1 tab Q4H PRN Administration Pain Rated 4-6 Hydrocodone Bitart/Acetaminophen 1 tab 10/08/24 16:05 Hydrocodone/Acetaminophen (*Crx) 10-325 Mg Tablet PO Q4H PRN Pain Rated 7-10 Dextrose 12.5 gm 10/07/24 20:37 Dextrose 50% 25 Gm/50 Ml Syringe IV PUSH PRN PRN Hypoglycemia Protocol Enoxaparin Sodium 40 mg 10/09/24 09:00 Enoxaparin 40 Mg/0.4 Ml Syringe SUB-Q DAILY TAYA Glucagon 1 mg 10/07/24 20:37 Glucagon For Inj 1 Mg Vial IM PRN PRN Hypoglycemia Protocol Glucose 15 gm 10/07/24 20:37 Glucose Oral Gel 15 Gm Of Glucse In 37.5 Gm Tube PO PRN PRN Hypoglycemia Protocol Dextrose 1,000 mls @ 100 mls/hr 10/07/24 20:37 Dextrose 5% 1,000 Ml IVPB PRN PRN Hypoglycemia Protocol Piperacillin Sod/Tazobactam 50 mls @ 100 mls/hr 10/08/24 20:00 10/09/24 09:54 Sod 3.375 gm/ Sodium Chloride IVPB 100 mls/hr Q6H [facility] Administration Morphine Sulfate 2 mg 10/08/24 16:05 Morphine Sulfate (*Crx) 2 Mg/Ml Inj IV PUSH Q2H PRN Breakthrough Pain Rated 4-6 or NPO Morphine Sulfate 4 mg 10/08/24 16:05 Morphine Sulfate (*Crx) 4 Mg/Ml Inj IV PUSH Q2H PRN Breakthrough Pain Rated 7-10 or NPO Naloxone HCl 0.1 mg 10/08/24 16:05 Naloxone Hcl 0.4 Mg/Ml Vial IV PUSH Q2M PRN Opiate Reversal Ondansetron HCl 4 mg 10/07/24 20:37 Ondansetron Inj 4 Mg/2 Ml Vial IV PUSH Q4H PRN Nausea Polyethylene Glycol 17 gm 10/09/24 09:00 10/09/24 09:55 Polyethylene Glycol 3350 17 Gm Powd.Pack PO Not Given QAM [facility] Radiology Results: ITS Impressions Abdomen/Pelvis CT 10/07/24 18:50 IMPRESSION: Acute appendicitis. These findings were discussed with María Elena Nur at 6:50 PM on 10/07/2024 Venous Doppler Study 10/08/24 22:31 IMPRESSION: Negative bilateral lower extremity venous US. No deep vein thrombosis. Labs Labs: Laboratory Results - last 24 hr 10/09/24 06:37 WBC 11.4 H RBC 3.45 L Hgb 11.0 L Hct 35.0 L MCV 101.4 H MCH 31.9 MCHC 31.4 L RDW 14.1 Plt Count 188 MPV 10.1 Immature Gran % (Auto) 1.0 H Neut % (Auto) 79.5 H Lymph % (Auto) 8.7 L [place] % (Auto) 9.4 H Eos % (Auto) 1.0 Baso % (Auto) 0.4 Lymph # (Auto) 0.99 [place] # (Auto) 1.1 H Eos # (Auto) 0.1 Baso # (Auto) 0.1 Abs Immat Gran (auto) 0.11 H Absolute Neuts (auto) 9.0 H Absolute Nucleated RBC 0.000 Nucleated RBC % 0.0 Sodium 137 Potassium 3.5 Chloride 107 Carbon Dioxide 24 Anion Gap 6 BUN 11 Creatinine 0.78 Estim Creat Clear Calc 41 Estimated GFR > 60 Glucose 110 Calcium 8.3 L Total Bilirubin 0.8 AST 23 ALT 20 Alkaline Phosphatase 95 Total Protein 5.7 L Albumin 2.8 L
[2024-10-09] MEDS: ENOXAPARIN 40 MG/0.4 ML SYRINGE SUB-Q (10:25)
[2024-10-09 12:30] VITALS: BP 120/63; PULSE 73; RESP 16; TEMP 36.4; O2SAT 98
[2024-10-09] MEDS: HYDROcodone/acetaminophen (*CRX) 5-325 MG TABLET 1 TAB PO (14:34)
[2024-10-09 17:50] VITALS: BP 101/74; PULSE 70; RESP 14; TEMP 36.5; O2SAT 94
--- NOTE | 2024-10-09 19:43 | PC.NURSE ---
On 10/09/24, the [employer]KL[employer] TR[employer] OPERATOR, Sabrina Brown, provided care and completed [employer] documentation on this patient. I have reviewed the [employer] O[employer]'s documentation and agree with the findings.
[2024-10-09 21:49] VITALS: BP 104/74; PULSE 73; RESP 14; TEMP 36.7; O2SAT 94
[2024-10-10] MEDS: PIPERACILLIN/TAZOBACTAM SOD 3.375 GM in SODIUM CHLORIDE 0.9% IV 50 ML 100 ML IVPB ×2 (02:15→08:22)
[2024-10-10 05:42] VITALS: BP 131/70; PULSE 76; RESP 14; TEMP 36.4; O2SAT 94
[2024-10-10 06:14] LABS: Hematocrit 31.9 % (37.0-47.0); Hemoglobin 10.3 g/dL (12.0-15.0); Immature Granulocyte Percent A 3.5 % (0-0.5); Lymphocytes Absolute Auto 1.76 K/mm3 (0.9-3.2); Mean Corpuscular HGB Conc 32.3 g/dl (32-36); Mean Corpuscular Hemoglobin 32.3 pg (26-34); Mean Corpuscular Volume 100.0 fl (80-100); Nucleated Red Blood Cells Absolute Auto 0.000 K/mm3 (0.0-0.012); Nucleated Red Blood Cells Perc 0.0 % (0.0-0.2); Platelet Count Result 209 k/mm3 (150-375); Red Blood Count 3.19 M/mm3 (4.2-5.4); White Blood Count 12.5 K/mm3 (4.5-10.0)
[2024-10-10 06:36] LABS: Anion Gap 5 mmol/L (4-12); Blood Urea Nitrogen 15 mg/dL (7-17); Calcium 8.2 mg/dL (8.4-10.2); Carbon Dioxide 22 mmol/L (22-30); Chloride 108 mmol/L (98-107); Estimated CRCL calculation 40 ml/min; Estimated Glomerular Filt Rate > 60; Glucose 96 mg/dL (65-110); Potassium 3.2 mmol/L (3.4-5.0); Sodium 135 mmol/L (137-145)
--- NOTE | 2024-10-10 07:44 | PM.IMPN ---
Progress Note: A&P Assessment and Plan (1) HTN (hypertension), benign: Code(s): I10 - Essential (primary) hypertension Status: Acute Assessment and Plan: HTN Home meds: Amlodipine 5mg daily Blood pressure controlled off meds --Hold for now (2) Anxiety: Code(s): F41.9 - Anxiety disorder, unspecified Status: Acute Assessment and Plan: Anxiety Busipirone 5mg BID --Conitinue (3) Acute appendicitis: Qualifiers: Acute appendicitis type: with localized peritonitis Appendicitis abscess presence: without abscess Appendicitis gangrene presence: without gangrene Appendicitis perforation presence: without perforation Qualified Code(s): K35.30 - Acute appendicitis with localized peritonitis, without perforation or gangrene Code(s): K35.80 - Unspecified acute appendicitis Status: Acute Assessment and Plan: Acute appendicitis Afebrile. VSS. WBC 11.4 post op, normal AG. CT abd pelvis showed acute appendicitis s/p OR today with surgery Pain control: Vicodin, Morphine 2-4mg prn Diet advanced to regular per surgery recs Started miralax for bowel regimen (4) Edema of right lower extremity: Code(s): R60.0 - Localized edema Status: Acute Assessment and Plan: LE Edema RLE Laceration Following with [facility] wound his and there were couple not able worse theLow grade temp. Normal WBC & AG. CT abd pelvis showed acute appendicitis s/p OR today --Venous dopplers negative for DVT --Continue local wound care (5) UTI (urinary tract infection): Qualifiers: Hematuria presence: without hematuria Urinary tract infection type: acute cystitis Qualified Code(s): N30.00 - Acute cystitis without hematuria Code(s): N39.0 - Urinary tract infection, site not specified Status: Acute Assessment and Plan: UTI Urinary frequency and dysuria with positive UA UA cloudy, + nitrates, 21-50 WBC's, 4+ bacteria On Zosyn --On zosyn for appendicitis --Follow culture (6) Anemia: Code(s): D64.9 - Anemia, unspecified Status: Acute Assessment and Plan: Anemia H&H 11.4/35 --Ferritin, Iron panel, B12, follow CBC Subjective Date/time seen: 10/10/24 07:44 Interval history: Potassium 3.2, giving 40meq Not taking meds for pain overnight WBC 11.4<12.5 VSS, BP 101/74 last night off home meds, up to 131/70 today. Will consider restarting low dose of amlodipine (2.5mg) today if trending up Review of Systems Review of Systems: + fevers, RLQ abdominal pain Exam Narrative: General - Awake and alert. No acute distress Eyes - PERRLA, EOM intact ENT - No thrush, No erythema Neck - No noticeable or palpable swelling Lymph Nodes - No lymphadenopathy Cardiovascular - RRR no m/r/g, no JVD Lungs: Clear to auscultation, No wheezing, use of accessory muscles, no crackles Skin - Skin warm and dry, no wounds or rashes Abdomen - No signficant bowel sounds, abdomen mildly distended and nontender. 3 surgical site incisions with glue, normal post op appearance Extremities - Mild LE edema, cyanosis or clubbing Musculoskeletal - 5/5 strength, normal range of motion, no swollen or erythematous joints. Neurological ? Alert and oriented x 3, CN 2-12 grossly intact. Psych: Normal mood and affect Objective Data Vital Signs Vital Signs: Vital Signs - 24 hr 10/09/24 08:00 10/09/24 12:30 10/09/24 17:50 Temperature 97.5 F L 97.7 F Pulse Rate 73 70 Respiratory Rate 16 14 Blood Pressure 120/63 101/74 Pulse Oximetry 98 94 Oxygen Delivery Room Air 10/09/24 21:49 10/10/24 05:42 10/10/24 07:27 Temperature 98.0 F 97.5 F L Pulse Rate 73 76 Respiratory Rate 14 14 Blood Pressure 104/74 131/70 Pulse Oximetry 94 94 Oxygen Delivery Room Air Intake/Output Intake/Output: Intake & Output 10/07/24 10/08/24 10/09/24 10/10/24 23:59 23:59 23:59 23:59 Intake Total 2100 1540 640 350 Output Total 300 Balance 2100 1240 640 350 Meds/Results Medications: Active Medications Generic Name Dose Route Start Last Admin Trade Name Freq PRN Reason Stop Dose Admin Acetaminophen 650 mg 10/07/24 20:37 Acetaminophen 325 Mg Tablet PO Q4H PRN Mild Pain (1-3) or Fever Hydrocodone Bitart/Acetaminophen 1 tab 10/08/24 16:05 10/09/24 14:34 Hydrocodone/Acetaminophen (*Crx) 5-325 Mg Tablet PO 1 tab Q4H PRN Administration Pain Rated 4-6 Hydrocodone Bitart/Acetaminophen 1 tab 10/08/24 16:05 Hydrocodone/Acetaminophen (*Crx) 10-325 Mg Tablet PO Q4H PRN Pain Rated 7-10 Dextrose 12.5 gm 10/07/24 20:37 Dextrose 50% 25 Gm/50 Ml Syringe IV PUSH PRN PRN Hypoglycemia Protocol Enoxaparin Sodium 40 mg 10/09/24 09:00 10/09/24 10:25 Enoxaparin 40 Mg/0.4 Ml Syringe SUB-Q 40 mg DAILY TAYA Administration Glucagon 1 mg 10/07/24 20:37 Glucagon For Inj 1 Mg Vial IM PRN PRN Hypoglycemia Protocol Glucose 15 gm 10/07/24 20:37 Glucose Oral Gel 15 Gm Of Glucse In 37.5 Gm Tube PO PRN PRN Hypoglycemia Protocol Dextrose 1,000 mls @ 100 mls/hr 10/07/24 20:37 Dextrose 5% 1,000 Ml IVPB PRN PRN Hypoglycemia Protocol Piperacillin Sod/Tazobactam 50 mls @ 100 mls/hr 10/08/24 20:00 10/10/24 02:56 Sod 3.375 gm/ Sodium Chloride IVPB Infused Q6H TAYA Infusion Morphine Sulfate 2 mg 10/08/24 16:05 Morphine Sulfate (*Crx) 2 Mg/Ml Inj IV PUSH Q2H PRN Breakthrough Pain Rated 4-6 or NPO Morphine Sulfate 4 mg 10/08/24 16:05 Morphine Sulfate (*Crx) 4 Mg/Ml Inj IV PUSH Q2H PRN Breakthrough Pain Rated 7-10 or NPO Naloxone HCl 0.1 mg 10/08/24 16:05 Naloxone Hcl 0.4 Mg/Ml Vial IV PUSH Q2M PRN Opiate Reversal Ondansetron HCl 4 mg 10/07/24 20:37 Ondansetron Inj 4 Mg/2 Ml Vial IV PUSH Q4H PRN Nausea Polyethylene Glycol 17 gm 10/09/24 09:00 10/10/24 07:18 Polyethylene Glycol 3350 17 Gm Powd.Pack PO Not Given QAM [facility] Radiology Results: ITS Impressions Abdomen/Pelvis CT 10/07/24 18:50 IMPRESSION: Acute appendicitis. These findings were discussed with María Elena Nur at 6:50 PM on 10/07/2024 Venous Doppler Study 10/08/24 22:31 IMPRESSION: Negative bilateral lower extremity venous US. No deep vein thrombosis. Labs Labs: Laboratory Results - last 24 hr 10/10/24 05:21 WBC 12.5 H RBC 3.19 L Hgb 10.3 L Hct 31.9 L MCV 100.0 MCH 32.3 MCHC 32.3 RDW 14.1 Plt Count 209 MPV 10.1 Immature Gran % (Auto) 3.5 H Neut % (Auto) 71.0 Lymph % (Auto) 14.1 L [place] % (Auto) 8.3 Eos % (Auto) 2.5 Baso % (Auto) 0.6 Lymph # (Auto) 1.76 [place] # (Auto) 1.0 H Eos # (Auto) 0.3 Baso # (Auto) 0.1 Abs Immat Gran (auto) 0.43 H Absolute Neuts (auto) 8.9 H Absolute Nucleated RBC 0.000 Nucleated RBC % 0.0 Sodium 135 L Potassium 3.2 L Chloride 108 H Carbon Dioxide 22 Anion Gap 5 BUN 15 Creatinine 0.81 Estim Creat Clear Calc 40 Estimated GFR > 60 Glucose 96 Calcium 8.2 L Quality VTE Prophylaxis VTE prophylaxis: mechanical ordered
[2024-10-10] MEDS: ENOXAPARIN 40 MG/0.4 ML SYRINGE SUB-Q (08:12)
[2024-10-10] MEDS: POTASSIUM CHLORIDE 20 MEQ ER TABLET 40 MEQ PO (08:12)
--- NOTE | 2024-10-10 09:01 | PM.PNGS ---
Progress Note: A&P Assessment and Plan (1) Appendicitis with abscess: Code(s): K35.33 - Acute appendicitis with perforation, localized peritonitis, and gangrene, with abscess Status: Acute Assessment and Plan: POD2 s/p laparoscopic appendectomy with drainage of intra-abdominal abscess. Patient is tolerating a regular diet and ambulating well. Incisions are clean and dry with no signs of infection. Still complains of some right-sided pain with movement and getting up and out of bed. Tolerating pain with oral medication. WBC up to 12.5. Could be due to postop reaction. Ok from surgical standpoint to discharge home on oral antibiotics and follow up with Dr. Hernandez in 2 weeks. Plan Discussed patient's case and plan of care with Dr. Hernandez. Subjective Subjective Date/Time Seen: 10/10/24 09:01 Patient reports: no new complaints, feels better, tolerating a regular diet and bowel movement Interval history: Patient is doing well today. Tolerating regular diet without nausea or vomiting. Having some loose stools. Still complains of some right-sided pain exacerbated by movement and getting up and out of bed. Ambulating independently around her room. WBC did bump up a little to 12.5 from 11.4. Exam GI: Inspection: distended and no visible herniation Auscultation: Hypoactive bowel sounds present Rectal Exam: deferred Other: Incisions are clean and dry with no evidence of infection, dehiscence, or purulence. No surrounding redness. Moderate bruising to suprapubic area. Tenderness to palpation with guarding to right side of abdomen. Likely d/t appendiceal perforation with abscess. Abdomen slightly less distended than yesterday. Objective Data Vital Signs Vital Signs: Vital Signs - 24 hr 10/09/24 12:30 10/09/24 17:50 10/09/24 21:49 Temperature 97.5 F L 97.7 F 98.0 F Pulse Rate 73 70 73 Respiratory Rate 16 14 14 Blood Pressure 120/63 101/74 104/74 Pulse Oximetry 98 94 94 Oxygen Delivery 10/10/24 05:42 10/10/24 07:27 Temperature 97.5 F L Pulse Rate 76 Respiratory Rate 14 Blood Pressure 131/70 Pulse Oximetry 94 Oxygen Delivery Room Air Intake/Output Intake/Output: Intake & Output 10/07/24 10/08/24 10/09/24 07/11/25 23:59 23:59 23:59 23:59 Intake Total 2100 1540 640 350 Output Total 300 Balance 2100 1240 640 350 Meds/Results Medications: Active Medications Generic Name Dose Route Start Last Admin Trade Name Freq PRN Reason Stop Dose Admin Acetaminophen 650 mg 10/07/24 20:37 Acetaminophen 325 Mg Tablet PO Q4H PRN Mild Pain (1-3) or Fever Hydrocodone Bitart/Acetaminophen 1 tab 10/08/24 16:05 10/09/24 14:34 Hydrocodone/Acetaminophen (*Crx) 5-325 Mg Tablet PO 1 tab Q4H PRN Administration Pain Rated 4-6 Hydrocodone Bitart/Acetaminophen 1 tab 10/08/24 16:05 Hydrocodone/Acetaminophen (*Crx) 10-325 Mg Tablet PO Q4H PRN Pain Rated 7-10 Dextrose 12.5 gm 10/07/24 20:37 Dextrose 50% 25 Gm/50 Ml Syringe IV PUSH PRN PRN Hypoglycemia Protocol Enoxaparin Sodium 40 mg 10/09/24 09:00 10/10/24 08:12 Enoxaparin 40 Mg/0.4 Ml Syringe SUB-Q 40 mg DAILY TAYA Administration Glucagon 1 mg 10/07/24 20:37 Glucagon For Inj 1 Mg Vial IM PRN PRN Hypoglycemia Protocol Glucose 15 gm 10/07/24 20:37 Glucose Oral Gel 15 Gm Of Glucse In 37.5 Gm Tube PO PRN PRN Hypoglycemia Protocol Dextrose 1,000 mls @ 100 mls/hr 10/07/24 20:37 Dextrose 5% 1,000 Ml IVPB PRN PRN Hypoglycemia Protocol Piperacillin Sod/Tazobactam 50 mls @ 100 mls/hr 10/08/24 20:00 10/10/24 08:22 Sod 3.375 gm/ Sodium Chloride IVPB 100 mls/hr Q6H TAYA Administration Morphine Sulfate 2 mg 10/08/24 16:05 Morphine Sulfate (*Crx) 2 Mg/Ml Inj IV PUSH Q2H PRN Breakthrough Pain Rated 4-6 or NPO Morphine Sulfate 4 mg 10/08/24 16:05 Morphine Sulfate (*Crx) 4 Mg/Ml Inj IV PUSH Q2H PRN Breakthrough Pain Rated 7-10 or NPO Naloxone HCl 0.1 mg 10/08/24 16:05 Naloxone Hcl 0.4 Mg/Ml Vial IV PUSH Q2M PRN Opiate Reversal Ondansetron HCl 4 mg 10/07/24 20:37 Ondansetron Inj 4 Mg/2 Ml Vial IV PUSH Q4H PRN Nausea Polyethylene Glycol 17 gm 10/09/24 09:00 10/10/24 07:18 Polyethylene Glycol 3350 17 Gm Powd.Pack PO Not Given [facility] Radiology Results: ITS Impressions Abdomen/Pelvis CT 10/07/24 18:50 IMPRESSION: Acute appendicitis. These findings were discussed with María Elena Nur at 6:50 PM on 10/07/2024 Venous Doppler Study 10/08/24 22:31 IMPRESSION: Negative bilateral lower extremity venous US. No deep vein thrombosis. Labs Labs: Laboratory Results - last 24 hr 10/10/24 05:21 WBC 12.5 H RBC 3.19 L Hgb 10.3 L Hct 31.9 L MCV 100.0 MCH 32.3 MCHC 32.3 RDW 14.1 Plt Count 209 MPV 10.1 Immature Gran % (Auto) 3.5 H Neut % (Auto) 71.0 Lymph % (Auto) 14.1 L [place] % (Auto) 8.3 Eos % (Auto) 2.5 Baso % (Auto) 0.6 Lymph # (Auto) 1.76 [place] # (Auto) 1.0 H Eos # (Auto) 0.3 Baso # (Auto) 0.1 Abs Immat Gran (auto) 0.43 H Absolute Neuts (auto) 8.9 H Absolute Nucleated RBC 0.000 Nucleated RBC % 0.0 Sodium 135 L Potassium 3.2 L Chloride 108 H Carbon Dioxide 22 Anion Gap 5 BUN 15 Creatinine 0.81 Estim Creat Clear Calc 40 Estimated GFR > 60 Glucose 96 Calcium 8.2 L
--- NOTE | 2024-10-10 13:18 | PM.DS ---
DS: Admitting Diagnosis Discharge Date 10/10/2024 Admitting Diagnosis Acute appendicitis UTI DS: Discharge Diagnosis Discharge Diagnosis (1) Acute appendicitis with localized peritonitis, without perforation or abscess: Code(s): K35.30 - Acute appendicitis with localized peritonitis, without perforation or gangrene Status: Acute (2) UTI (urinary tract infection): Qualifiers: Hematuria presence: without hematuria Urinary tract infection type: acute cystitis Qualified Code(s): N30.00 - Acute cystitis without hematuria Code(s): N39.0 - Urinary tract infection, site not specified Status: Acute DS: Summary Hospital Course Reason for hospitalization: Copied from [facility] 10/08: Arlene Elliott is an 89 year old female, hx HTN, prior hysterectomy, fall with injury to right leg in July, who presented with right lower quadrant abdominal pain, and urinary frequency, and was admitted for acute appendicitis and a UTI. She had a fall in July complicated by a small laceration to her right leg, and [facility]. She has had 5 days of RLQ pain, also reports urinary frequency, but only had dysuria 1st time today. She reports a temperature of 101? at home. She was constipated, took Dulcolax and then had diarrhea. Last BM this morning. She came to the ER for evaluation In the ER her white count was normal. CT abd pelvis showed acute appenditicis. UA cloudy, + nitrates, 21-50 WBC's, 4+ bacteria On Zosyn. She was hemodynamically stable, temp 99.4 Surgery consulted and was taken to the OR Otherwise she notes RLE edema recently, having difficulty putting on a shoe. Checking Dopplers. Starting Lovenox for DVT prophylaxis per surgery Hospital Course: Procedures Performed: Laparoscopic Appendectomy with Drainage of Intra-abdominal Abscess Hospital Course: The patient was admitted with acute appendicitis complicated by perforation, localized peritonitis, and gangrene, with an abscess. A laparoscopic appendectomy was performed successfully, and the intra-abdominal abscess was drained. Postoperatively, the patient was managed with pain control using Vicodin and Morphine as needed. The patient was afebrile with vital signs stable, and the white blood cell count was slightly elevated at 12.5, likely reactive postop. Potassium 3.2 and replaced. Likely low 2/2 poor PO intake. The patient was also treated for a urinary tract infection with Zosyn, which was initially started for appendicitis. Discharged with augementin and flagyl for 7 more days. Continued home Buspirone 5mg BID. Hypertension was monitored with Amlodipine held and blood pressure off medication. Reduced dose to 2.5mg (from 5mg) for discharge. Can resume prior dose at follow up if able. Localized edema of the right lower extremity was managed with local wound care, and venous dopplers were negative for DVT. Anemia was monitored with a complete blood count and iron studies. Discharge Condition: The patient is stable, tolerating a regular diet, and ambulating well. Incisions are clean and dry with no signs of infection. The patient reports some right-sided pain with movement, which is well-controlled with oral pain medication. Status at Discharge Cognitive/behavioral status at discharge: A&Ox3 Time Spent with Patient Time attestation: Total time spent providing and/or coordinating discharge services:46 minutes Exam Narrative: General - Awake and alert. No acute distress Eyes - PERRLA, EOM intact ENT - No thrush, No erythema Neck - No noticeable or palpable swelling Lymph Nodes - No lymphadenopathy Cardiovascular - RRR no m/r/g, no JVD Lungs: Clear to auscultation, No wheezing, use of accessory muscles, no crackles Skin - Skin warm and dry, no wounds or rashes Abdomen - No signficant bowel sounds, abdomen mildly distended and nontender. 3 surgical site incisions with glue, normal post op appearance Extremities - Mild LE edema, cyanosis or clubbing Musculoskeletal - 5/5 strength, normal range of motion, no swollen or erythematous joints. Neurological ? Alert and oriented x 3, CN 2-12 grossly intact. Psych: Normal mood and affect DS: Data Data Completed and Pending Completed studies during hospitalization: Pending at discharge 10/08/24 14:54 Surgical [PTH] Routine Labs on day of discharge: Labs from last 24 hours 10/10/24 05:21 WBC 12.5 H RBC 3.19 L Hgb 10.3 L Hct 31.9 L MCV 100.0 MCH 32.3 MCHC 32.3 RDW 14.1 Plt Count 209 MPV 10.1 Immature Gran % (Auto) 3.5 H Neut % (Auto) 71.0 Lymph % (Auto) 14.1 L [place] % (Auto) 8.3 Eos % (Auto) 2.5 Baso % (Auto) 0.6 Lymph # (Auto) 1.76 [place] # (Auto) 1.0 H Eos # (Auto) 0.3 Baso # (Auto) 0.1 Abs Immat Gran (auto) 0.43 H Absolute Neuts (auto) 8.9 H Absolute Nucleated RBC 0.000 Nucleated RBC % 0.0 Sodium 135 L Potassium 3.2 L Chloride 108 H Carbon Dioxide 22 Anion Gap 5 BUN 15 Creatinine 0.81 Estim Creat Clear Calc 40 Estimated GFR > 60 Glucose 96 Calcium 8.2 L Preliminary micro results at discharge 10/07/24 17:10 Urine Culture - Preliminary Urine Clean Catch Gram negative bacilli isolated Discharge Plan Discharge Attending physician on discharge: Shanon Cabrera Consulting providers: Juan C Givens; Gracia Melo; Pratibha Caal; Iker Oleary; Charu Arguello; Cyndy Hernandes; David,Troy Griffiths Discharging Clinician: Shanon Cabrera Anticipated Discharge Date/Time: 10/10/24 13:15 Patient Disposition: Home with Home Health Service Activity: may shower Diet: regular Discharge Instructions: Per Care Coordination Patient is current with [facility] for wound care. Please resume services at discharge. [phone] Stay well hydrated (Drink 1-2 liters of water a day) Come back to the hospital for fever over 101 or sudden severe pain. Calll your PCP or surgeon for small changes if you have new concerns. DISCHARGE INSTRUCTION SHEET FOR HERNIA, GALLBLADDER AND APPENDIX SURGERIES DR. GIVENS PATIENT MAY TRY A PROBIOTIC TO HELP WITH DIARRHEA PATIENT TO TAKE HOME 1. May shower, no soaking in bath x 2weeks. 2. Call office for: Wound increasingly painful or bleeding Vomiting Fever of greater than 101 degrees 3. If no bowel movement for three days, take 1 oz. (30 ml) Milk of Magnesia or MiraLax 17g 1 to 2 times daily. 4. No heavy lifting > 10-15 pounds x 2 weeks. 5. No driving for 3 days or while taking narcotic pain medications. 6. Ice to surgical site for 48 hours (30 min on, then 30 min off). 7. Up walking 10-30 minutes three times per day. 8. Resume previous home medications. 9. Follow-up 10-14 days in office for wound check or as previously scheduled. ([phone]) 10. Oral pain medications prescription to be sent to pharmacy. Take Tylenol 500mg every 6 hours and Ibuprofen 600mg every 6 hours for the first 2 days, then as needed. Revised July 2018 Patient Instructions: Antibiotic Form Patient Language: Amharic Stand Alone Forms: General Discharge Information Follow-up/Referrals: Juan C Givens DO [Physician] - 2 Weeks Discharge Medications: New amlodipine 2.5 mg tablet 2.5 mg PO DAILY Qty: 30 0RF Continued buspirone 5 mg tablet See Rx Instructions .ROUTE .COMPLEX Qty: 180 2RF Dose Instruction: TAKE 1 TABLET BY MOUTH TWICE A DAY NEEDED FOR ANXIETY Rx Instructions: TAKE 1 TABLET BY MOUTH TWICE A DAY NEEDED FOR ANXIETY Discontinued amlodipine 5 mg tablet See Rx Instructions .ROUTE .COMPLEX Qty: 90 2RF Dose Instruction: TAKE 1 TABLET BY MOUTH EVERY DAY Rx Instructions: TAKE 1 TABLET BY MOUTH EVERY DAY Date of admission: 10/07/24 20:38 Primary Care Provider: Tye Grajeda Admitting Provider: Keely Sagastume Attending physician on admission: Shanon Cabrera Condition: Stable
== END 2024-10-10 13:54 | disposition home health service (06) | DRG 398 ==
LOC: ANHED 20:27 → ANH3MEDSUR 21:44
PROVIDERS: Emergency Medicine; Nurse Practitioner Family; Surgery; Admitting Provider Internal Medicine; Emergency Provider Physician Assistant; PCP Family Medicine; Visit Provider Nurse Practitioner Acute Care
PROC: 0DTJ4ZZ Resection of Appendix, Percutaneous Endoscopic Approach (ICD-10-PCS; CPT 44970; principal; 2024-10-08 14:00)
DX: K35.33 Acute appendicitis with perforation, localized peritonitis, and gangrene, with abscess (principal); N39.0 Urinary tract infection, site not specified; F41.9 Anxiety disorder, unspecified; I10 Essential (primary) hypertension; D64.9 Anemia, unspecified; S81.801D Unspecified open wound, right lower leg, subsequent encounter
CPT/HCPCS: 36415; 74177; 80048; 80053; 81001; 83690; 83735; 85025; 85027; 87086; 88304; 93970; 96365; 96367; 96375; 99285; A9270; J0696; J1650; J1885; J2003; J2405; J2543; J2704; J3010; J7030; J7120; Q9967